=== PATIENT | male | born 1970 | race Caucasian/White ===

== ENCOUNTER 2024-08-29 11:42 | Inpatient (IN) | payer OTHER ==
[2024-08-29 12:25] LABS: ABG Base Excess 18.9 mmol/L; ABG Oxygen Saturation >100.0 % (94-97); ABG PCO2 70 mmHg (35-45); ABG PH 7.44 (7.35-7.45); ABG PO2 256 mmHg (83-108); ABG TCO2 49 mmol/L (19-24); Allen Test Performed? Yes
[2024-08-29 12:29] LABS: ABG HCO3 47 mmol/L (21-25)
[2024-08-29 12:32] LABS: Basophils % (A) 0 %; Eosinophils % (A) 0 %; HCT 40.2 % (39.0-53.0); HGB 13.2 gm/dL (13.0-17.5); Lymphocytes # (A) 0.6 k/uL (1.0-4.8); Lymphocytes % (A) 8 %; MCH 29.2 pg (25.0-35.0); MCV 88.5 fL (80.0-100.0); Mean Platelet Volume 7.2; Monocytes # (A) 0.2 k/uL (0-1.0); Monocytes % (A) 3 %; Neutrophils # (A) 7.4 k/uL (1.3-7.7); Neutrophils % (A) 89 %; Platelet Count 239 k/uL (150-450); RBC 4.54 m/uL (4.30-5.90); RDW 12.5 % (11.5-15.5); WBC 8.3 k/uL (3.8-10.6)
[2024-08-29] MEDS: SODIUM CHLORIDE 0.9% 1,000 ML IV STA (12:39)
[2024-08-29] MEDS: SODIUM CHLORIDE 0.9% 1,000 ML IV ONE (12:39)
[2024-08-29] MEDS: methylPREDNISolone SOD SUCCI 125 MG/2 ML VIAL IV STA (12:39)
[2024-08-29 12:43] LABS: ALT 21 U/L (4-49); AST 22 U/L (17-59); African American GFR (CKD) >90 (>60 ml/min/1.73 sqM); Albumin 3.9 g/dL (3.5-5.0); Alkaline Phosphatase 75 U/L (38-126); Blood Urea Nitrogen 19 mg/dL (9-20); Calcium 9.1 mg/dL (8.4-10.2); Chloride 87 mmol/L (98-107); Glucose 125 mg/dL (74-99); Magnesium 1.9 mg/dL (1.6-2.3); Non-African American GFR(CKD) >90 (>60 ml/min/1.73 sqM); Potassium 3.9 mmol/L (3.5-5.1); Sodium 139 mmol/L (137-145); Total Bilirubin 0.6 mg/dL (0.2-1.3); Total Protein 7.3 g/dL (6.3-8.2)
[2024-08-29] MEDS: IPRATROPIUM 0.5 MG/2.5 ML NEBU INHALATION STA (12:45)
[2024-08-29] MEDS: ALBUTEROL NEBULIZED 2.5 MG/3 ML INHALATION STA (12:45)
[2024-08-29 12:49] LABS: Anion Gap 8 mmol/L
[2024-08-29 12:52] LABS: NT-Pro-B-Type Natriuretic Pept 857 pg/mL
[2024-08-29 12:56] LABS: Partial Thromboplastin Time 21.2 sec (22.0-30.0); Prothrombin Time 10.7 sec (10.0-12.5)
[2024-08-29 13:04] LABS: Carbon Dioxide 44 mmol/L (22-30)
[2024-08-29 13:10] LABS: Influenza A Not Detected (Not Detectd); Influenza B Not Detected (Not Detectd); RSV Not Detected (Not Detectd)
--- NOTE | 2024-08-29 13:11 | XR ---
EXAMINATION TYPE: XR chest 1V portable DATE OF EXAM: 08/29/2024 12:49 PM COMPARISON: None CLINICAL INDICATION: Male, 53 years old with history of difficulty breathing; [facility] TECHNIQUE: XR chest 1V portable Frontal view of the chest. FINDINGS: Lungs/Pleura: There is no evidence of pleural effusion, focal consolidation, or pneumothorax. Pulmonary vascularity: Unremarkable. Heart/mediastinum: Cardiomediastinal silhouette is unremarkable. A loop recorder projects over the le ft thorax over the heart. Musculoskeletal: Multiple right-sided rib fractures identified somewhat calculus formation. Other findings: None Lines/Tubes: Endotracheal tube with distal tip 2.7cm above the juan c. Nasogastric tube with its distal tip and side-port projecting under the diaphragm. IMPRESSION: 1. Similar multifocal airspace opacities. Correlate for pneumonia. 2. Stable support lines and tubes. 3. Multiple right-sided rib fractures some with calcification. [facility], , 08/29/2024 1:09 PM
--- NOTE | 2024-08-29 13:42 | ED ---
General Adult HPI - General Chief complaint: Shortness of Breath Stated complaint: Resp distress Time Seen by Provider: 08/29/24 12:00 Source: patient, EMS, RN notes reviewed, old records reviewed Mode of arrival: EMS Limitations: language barrier, altered mental status - History of Present Illness Initial comments: This is a 53-year-old male who presents to the emergency department from [facility]. There ER physician called me prior to the patient's arrival and stated that the patient was a bad COPD year with a pCO2 of 137 they tried BiPAP but the patient failed and it so they intubated the patient. Patient was also diagnosed with pneumonia and started on antibiotics. Patient arrived without any lab work so lab work was repeated - Related Data Allergies Allergy/AdvReac Type Severity Reaction Status Date / Time Penicillins Allergy Rash/Hives Verified 08/29/24 12:03 Review of Systems ROS Statement: Those systems with pertinent positive or pertinent negative responses have been documented in the HPI. ROS Other: All systems not noted in ROS Statement are negative. Past Medical History Past Medical History: COPD History of Any Multi-Drug Resistant Organisms: Unobtainable Past Surgical History: No Surgical Hx Reported Past Psychological History: Unable to Obtain Past Alcohol Use History: Unable to Obtain Past Drug Use History: Unable to Obtain General Exam - General Exam Comments Initial Comments: GENERAL: Patient is well-developed and well-nourished. Patient is nontoxic and well- hydrated and is in no acute distress. Patient is being bagged and there does not appear to be any distress at this time ENT: Neck is soft and supple. No significant lymphadenopathy is noted. Oropharynx is clear. Moist mucous membranes. Neck has full range of motion without eliciting any pain. EYES: The sclera were anicteric and conjunctiva were pink and moist. Extraocular move ments were intact and pupils were equal round and reactive to light. Eyelids were unremarkable. PULMONARY: Patient has good breath sounds bilaterally but patient is intubated CARDIOVASCULAR: There is a regular rate and rhythm without any murmurs gallops or rubs. ABDOMEN: Soft and nontender with normal bowel sounds. SKIN: Skin is clear with no lesions or rashes and otherwise unremarkable. NEUROLOGIC: Patient is intubated on dipper Van. MUSCULOSKELETAL: Normal extremities with adequate strength and full range of motion. No lower extremity swelling or edema. No calf tenderness. PSYCHIATRIC: Unable to assess at this time Limitations: language barrier, altered mental status Course Vital Signs 08/29/24 08/29/24 08/29/24 11:45 11:52 12:00 Temperature Pulse Rate 59 L Respiratory 14 14 Rate Blood Pressure 104/63 O2 Sat by Pulse 100 Oximetry Fraction of 100 Inspired Oxygen (FIO2) 08/29/24 08/29/24 08/29/24 12:30 12:31 12:48 Temperature Pulse Rate 61 60 Respiratory 14 Rate Blood Pressure 111/66 O2 Sat by Pulse 100 Oximetry Fraction of 60 100 Inspired Oxygen (FIO2) 08/29/24 08/29/24 13:00 13:28 Temperature 98.9 F Pulse Rate 75 67 Respiratory 14 14 Rate Blood Pressure 90/77 108/62 O2 Sat by Pulse 97 98 Oximetry Fraction of Inspired Oxygen (FIO2) Medical Decision Making - Medical Decision Making Patient's EKG shows sinus rhythm at 62 bpm [place] notes 159 QRS 107 QT interval 393 QTc is 397. Patient's EKG shows minimal ST segment elevation in 2 and aVF Was pt. sent in by a medical professional or institution ([facility], [employer], urgent care, hospital, or fci...) When possible be specific @ -No Did you speak to anyone other than the patient for history (EMS, parent, family, police, friend...)? What history was obtained from this source @ -No Did you review nursing and triage notes (agree or disagree)? Why? @ -I reviewed and agree with nursing and triage notes Were old charts reviewed (outside hosp., previous admission, EMS record, old EKG, old radiological studies, urgent care reports/EKG's, fci records)? Report findings @ -No old charts were reviewed Differential Diagnosis? @ -Differential Dyspnea: Coronary syndrome, arrhythmia, tamponade, asthma, COPD, pulmonary embolism, pneumonia, pneumothorax, pulmonary effusion, anaphylaxis, diabetic ketoacidosis, flailed chest, pulmonary contusion, diaphragmatic rupture, anemia, neuromuscular, this is not meant to be an all-inclusive list. EKG interpreted by me (3pts min.). @ -As above X-rays interpreted by me (1pt min.). @ -Chest x-ray shows diffuse pneumonia CT interpreted by me (1pt min.). @ -None done U/S interpreted by me (1pt. min.). @ -None done What testing was considered but not performed or refused? (CT, X-rays, U/S, labs)? Why? @ -None What meds were considered but not given or refused? Why? @ -None Did you discuss the management of the patient with other professionals (professionals i.e. , PA, BUYER PLANNER, lab, RT, psych nurse, psychiatric social worker, customer business manager, teacher, investigation officer, special education case manager)? Give summary @ -I spoke with Dr. Fernandez he agreed to admit the patient admit the patient wrote admitting orders. I spoke with Dr. Yoder he agreed to take the patient in ICU. Was smoking cessation discussed for >3mins.? @ -No Was critical care preformed (if so, how long)? @ -No Were there social determinants of health that impacted care today? How? (Homelessness, low income, unemployed, alcoholism, drug addiction, transportation, low edu. Level, literacy, decrease access to med. care, skilled nursing, rehab)? @ -No Was there de-escalation of care discussed even if they declined (Discuss DNR or withdrawal of care, Hospice)? DNR status @ -No What co-morbidities impacted this encounter? (DM, HTN, Smoking, COPD, CAD, Cancer, CVA, ARF, Chemo, Hep., AIDS, mental health diagnosis, sleep apnea, morbid obesity)? @ -None Was patient admitted / discharged? Hospital course, mention meds given and route, prescriptions, significant lab abnormalities, going to OR and other pertinent info. @ -Patient was intubated prior to arrival patient was placed on the vent here. Patient had an ABG and lab work done here all within normal range. Patient's chest x-ray showed diffuse pneumonia Undiagnosed new problem with uncertain prognosis? @ -No Drug Therapy requiring intensive monitoring for toxicity (Heparin, Nitro, Insulin, Cardizem)? @ -No Were any procedures done? @ -No Diagnosis/symptom? @ -Pneumonia Acute, or Chronic, or Acute on Chronic? @ -Acute Uncomplicated (without systemic symptoms) or Complicated (systemic symptoms)? @ -Complicated Side effects of treatment? @ -No Exacerbation, Progression, or Severe Exacerbation? @ -No Poses a threat to life or bodily function? How? (Chest pain, [place], [place], pneumonia, PE, COPD, DKA, ARF, appy, cholecystitis, CVA, Diverticulitis, Homicidal, Suicidal, threat to staff... and all critical care pts) @ -Yes this can lead to hypoxia and endorgan dysfunction - Lab Data Result diagrams: 08/29/24 11:53 08/29/24 11:53 Lab Results 08/29/24 08/29/24 08/29/24 Range/Units 11:53 11:53 11:53 WBC 8.3 (3.8-10.6) k/uL RBC 4.54 (4.30-5.90) m/uL Hgb 13.2 (13.0-17.5) gm/dL Hct 40.2 (39.0-53.0) % MCV 88.5 (80.0-100.0) fL MCH 29.2 (25.0-35.0) pg MCHC 33.0 (31.0-37.0) g/dL RDW 12.5 (11.5-15.5) % Plt Count 239 (150-450) k/uL MPV 7.2 Neutrophils % 89 % Lymphocytes % 8 % Monocytes % 3 % Eosinophils % 0 % Basophils % 0 % Neutrophils # 7.4 (1.3-7.7) k/uL Lymphocytes # 0.6 L (1.0-4.8) k/uL Monocytes # 0.2 (0-1.0) k/uL Eosinophils # 0.0 (0-0.7) k/uL Basophils # 0.0 (0-0.2) k/uL PT 10.7 (10.0-12.5) sec INR 1.0 (<1.2) APTT 21.2 L (22.0-30.0) sec D-Dimer 0.56 (<0.60) mg/L FEU Sample Site ABG pH (7.35-7.45) ABG pCO2 (35-45) mmHg ABG pO2 (83-108) mmHg ABG HCO3 (21-25) mmol/L ABG Total CO2 (19-24) mmol/L ABG O2 Saturation (94-97) % ABG Base Excess mmol/L Iain Test FiO2 % Sodium 139 (137-145) mmol/L Potassium 3.9 (3.5-5.1) mmol/L Chloride 87 L (98-107) mmol/L Carbon Dioxide 44 H* (22-30) mmol/L Anion Gap 8 mmol/L BUN 19 (9-20) mg/dL Creatinine 0.79 (0.66-1.25) mg/dL Est GFR (CKD-EPI)AfAm >90 (>60 ml/min/1.73 sqM) Est GFR (CKD-EPI)NonAf >90 (>60 ml/min/1.73 sqM) Glucose 125 H (74-99) mg/dL Plasma Lactic Acid Rolf (0.7-2.0) mmol/L Calcium 9.1 (8.4-10.2) mg/dL Magnesium 1.9 (1.6-2.3) mg/dL Total Bilirubin 0.6 (0.2-1.3) mg/dL AST 22 (17-59) U/L ALT 21 (4-49) U/L Alkaline Phosphatase 75 (38-126) U/L Troponin I (0.000-0.034) ng/mL NT-Pro-B Natriuret Pep 857 pg/mL Total Protein 7.3 (6.3-8.2) g/dL Albumin 3.9 (3.5-5.0) g/dL Influenza Type A (PCR) (Not Detectd) Influenza Type B (PCR) (Not Detectd) RSV (PCR) (Not Detectd) SARS-CoV-2 (PCR) (Not Detectd) 08/29/24 08/29/24 08/29/24 Range/Units 11:53 11:53 11:54 WBC (3.8-10.6) k/uL RBC (4.30-5.90) m/uL Hgb (13.0-17.5) gm/dL Hct (39.0-53.0) % MCV (80.0-100.0) fL MCH (25.0-35.0) pg MCHC (31.0-37.0) g/dL RDW (11.5-15.5) % Plt Count (150-450) k/uL MPV Neutrophils % % Lymphocytes % % Monocytes % % Eosinophils % % Basophils % % Neutrophils # (1.3-7.7) k/uL Lymphocytes # (1.0-4.8) k/uL Monocytes # (0-1.0) k/uL Eosinophils # (0-0.7) k/uL Basophils # (0-0.2) k/uL PT (10.0-12.5) sec INR (<1.2) APTT (22.0-30.0) sec D-Dimer (<0.60) mg/L FEU Sample Site ABG pH (7.35-7.45) ABG pCO2 (35-45) mmHg ABG pO2 (83-108) mmHg ABG HCO3 (21-25) mmol/L ABG Total CO2 (19-24) mmol/L ABG O2 Saturation (94-97) % ABG Base Excess mmol/L Iain Test FiO2 % Sodium (137-145) mmol/L Potassium (3.5-5.1) mmol/L Chloride (98-107) mmol/L Carbon Dioxide (22-30) mmol/L Anion Gap mmol/L BUN (9-20) mg/dL Creatinine (0.66-1.25) mg/dL Est GFR (CKD-EPI)AfAm (>60 ml/min/1.73 sqM) Est GFR (CKD-EPI)NonAf (>60 ml/min/1.73 sqM) Glucose (74-99) mg/dL Plasma Lactic Acid Rolf 2.2 H* (0.7-2.0) mmol/L Calcium (8.4-10.2) mg/dL Magnesium (1.6-2.3) mg/dL Total Bilirubin (0.2-1.3) mg/dL AST (17-59) U/L ALT (4-49) U/L Alkaline Phosphatase (38-126) U/L Troponin I <0.012 (0.000-0.034) ng/mL NT-Pro-B Natriuret Pep pg/mL Total Protein (6.3-8.2) g/dL Albumin (3.5-5.0) g/dL Influenza Type A (PCR) Not Detected (Not Detectd) Influenza Type B (PCR) Not Detected (Not Detectd) RSV (PCR) Not Detected (Not Detectd) SARS-CoV-2 (PCR) Not Detected (Not Detectd) 08/29/24 Range/Units 12:13 WBC (3.8-10.6) k/uL RBC (4.30-5.90) m/uL Hgb (13.0-17.5) gm/dL Hct (39.0-53.0) % MCV (80.0-100.0) fL MCH (25.0-35.0) pg MCHC (31.0-37.0) g/dL RDW (11.5-15.5) % Plt Count (150-450) k/uL MPV Neutrophils % % Lymphocytes % % Monocytes % % Eosinophils % % Basophils % % Neutrophils # (1.3-7.7) k/uL Lymphocytes # (1.0-4.8) k/uL Monocytes # (0-1.0) k/uL Eosinophils # (0-0.7) k/uL Basophils # (0-0.2) k/uL PT (10.0-12.5) sec INR (<1.2) APTT (22.0-30.0) sec D-Dimer (<0.60) mg/L FEU Sample Site rrad ABG pH 7.44 (7.35-7.45) ABG pCO2 70 H (35-45) mmHg ABG pO2 256 H (83-108) mmHg ABG HCO3 47 H* (21-25) mmol/L ABG Total CO2 49 H (19-24) mmol/L ABG O2 Saturation >100.0 H (94-97) % ABG Base Excess 18.9 mmol/L Iain Test Yes FiO2 100 % Sodium (137-145) mmol/L Potassium (3.5-5.1) mmol/L Chloride (98-107) mmol/L Carbon Dioxide (22-30) mmol/L Anion Gap mmol/L BUN (9-20) mg/dL Creatinine (0.66-1.25) mg/dL Est GFR (CKD-EPI)AfAm (>60 ml/min/1.73 sqM) Est GFR (CKD-EPI)NonAf (>60 ml/min/1.73 sqM) Glucose (74-99) mg/dL Plasma Lactic Acid Rolf (0.7-2.0) mmol/L Calcium (8.4-10.2) mg/dL Magnesium (1.6-2.3) mg/dL Total Bilirubin (0.2-1.3) mg/dL AST (17-59) U/L ALT (4-49) U/L Alkaline Phosphatase (38-126) U/L Troponin I (0.000-0.034) ng/mL NT-Pro-B Natriuret Pep pg/mL Total Protein (6.3-8.2) g/dL Albumin (3.5-5.0) g/dL Influenza Type A (PCR) (Not Detectd) Influenza Type B (PCR) (Not Detectd) RSV (PCR) (Not Detectd) SARS-CoV-2 (PCR) (Not Detectd) Critical Care Time Critical Care Time: Yes Total Critical Care Time: 35 Disposition Clinical Impression: Pneumonia, COPD exacerbation, Respiratory failure Disposition: ADMITTED IP TO THIS HOSP Referrals: Nonstaff,Physician [Primary Care Provider] - 1-2 days Time of Disposition: 13:49
[2024-08-29] MEDS ORDERED: IPRATROPIUM-ALBUTEROL 3 ML NEB INHALATION PRN (13:49)
[2024-08-29] MEDS ORDERED: NALOXONE 0.4 MG/ML 1 ML VIAL IV PRN (13:49)
--- NOTE | 2024-08-29 14:18 | P.CNPUL ---
History of Present Illness Consult date: 08/29/24 Requesting physician: James Fernandez Reason for consult: dyspnea, COPD, hypoxemia Chief complaint: Respiratory failure. History of present illness: Pulmonary consult dated August 29, 2024. 53-year-old male who was transferred down, by EMS, from an outside hospital, with respiratory failure. The patient apparently has a history of severe COPD, and the patient was intubated, at the outside hospital, after he failed BiPAP. Apparently his PaCO2 on blood gas was 137. The patient is seen today in the emergency department, trauma room 2. His vent settings include volume assist- control, rate 14, tidal volume 450, FiO2 50%, and PEEP of 5. The patient is getting propofol at 25 mcg/kg/min. He apparently has a history of COPD, and sleep apnea, and apparently is noncompliant with medications. No other history is available other than the fact that he has COPD and sleep apnea. Home medic ations apparently include Trelegy, saline nasal rinse, vitamins, metoprolol, updrafts, with ipratropium bromide and albuterol, Motrin, Flonase nasal spray, Flexeril, Lipitor, aspirin, amlodipine, albuterol inhaler, and Tylenol. Based on these medications it appears in addition to COPD, the patient has a history of gastroesophageal reflux disease, hyperlipidemia, and hypertension. Current laboratory data includes a white count 8.3, hemoglobin 13.2, hematocrit 40.2, and a platelet count 239,000. Blood gases show pO2 of 256, pCO2 of 70, and a pH of 7.44. Bicarbonate concentration on the blood gas was 47, on the electrolyte profile was 44. Sodium 139, potassium 3.9, chloride 87, CO2 44, BUN 19, and creatinine 0.79. Lactic acid was 2.2. Glucose 125. The rest of the CMP looks relatively normal. Viral screen was negative. Chest x-ray shows bilateral airspace opacities, which could be consistent with pneumonia. Review of Systems REVIEW OF SYSTEMS: CONSTITUTIONAL: [Negative.] NEUROLOGIC: [ Negative.] HEENT: [ Negative.] CARDIAC: [Negative.] PULMONARY: Shortness of breath with respiratory failure. GI: [Negative.] : [Negative.] RHEUMATOLOGIC: [ Negative.] IMMUNOLOGIC: [ Negative.] ENDOCRINE: [Negative. ] DERMATOLOGIC: [Negative.] Past Medical History Past Medical History: COPD History of Any Multi-Drug Resistant Organisms: Unobtainable Past Surgical History: No Surgical Hx Reported Past Psychological History: Unable to Obtain Past Alcohol Use History: Unable to Obtain Past Drug Use History: Unable to Obtain Medications and Allergies Home Medications Medication Instructions Recorded Confirmed Type Acetaminophen Tab [Tylenol] 650 mg PO Q6H PRN 08/29/24 08/29/24 History Albuterol Inhaler [Ventolin Hfa 2 puff INHALATION RT-Q4H PRN 08/29/24 08/29/24 History Inhaler] Aspirin EC [Ecotrin] 325 mg PO W/BRKFST 08/29/24 08/29/24 History Atorvastatin [Lipitor] 40 mg PO HS 08/29/24 08/29/24 History Cyclobenzaprine [Flexeril] 5 mg PO TID PRN 08/29/24 08/29/24 History Famotidine [Pepcid] 20 mg PO BID 08/29/24 08/29/24 History Fluticasone Nasal [place] [Flonase 2 spr EA NOSTRIL DAILY 08/29/24 08/29/24 Histor y Nasal [place]] Fluticasone/Umeclidin/Vilanter 1 puff INHALATION RT-DAILY 08/29/24 08/29/24 [place] [Trelegy Ellipta 100-62.5-25] Ibuprofen [Motrin] 800 mg PO Q12H PRN 08/29/24 08/29/24 History Ipratropium-Albuterol Nebulize 3 ml INHALATION RT-BID 08/29/24 08/29/24 History [Duoneb 0.5 mg-3 mg/3 ml Soln] Metoprolol Tartrate [Lopressor] 50 mg PO BID 08/29/24 08/29/24 History Multivitamins, Thera [Multivitamin 1 tab PO W/BRKFST 08/29/24 08/29/24 History (formulary)] Sodium Chloride 0.65% Nasal [Deep 2 spr NASAL Q1H PRN 08/29/24 08/29/24 History Sea (Saline)] amLODIPine [Norvasc] 10 mg PO DAILY 08/29/24 08/29/24 History Allergies Allergy/AdvReac Type Severity Reaction Status Date / Time Penicillins Allergy Rash/Hives Verified 08/29/24 14:01 Physical Exam Osteopathic Statement: *. No significant issues noted on an osteopathic structural exam other than those noted in the History and Physical/Consult. Vitals: Vital Signs Temp Pulse Resp BP Pulse Ox FiO2 08/29/24 14:00 69 14 119/65 97 08/29/24 13:28 67 14 108/62 98 08/29/24 13:00 98.9 F 75 14 90/77 97 08/29/24 12:48 60 08/29/24 12:31 100 08/29/24 12:30 61 14 111/66 100 60 08/29/24 12:00 14 08/29/24 11:52 59 L 14 104/63 100 08/29/24 11:45 100 Intake and Output 08/28/24 08/29/24 08/29/24 22:59 06:59 14:59 Intake Total 6.171 Balance 6.171 Intake: Intake, IV Titration 6.171 Amount propofoL 1,000 mg In 6.171 Empty Bag 1 bag @ 15 MCG/ KG/MIN 15.867 mls/hr IV . Q6H19M [facility] Rx#:[id number] Other: Weight 176.3 kg No acute distress, sedated with propofol, with an orally placed endotracheal tube. HEENT examination is grossly unremarkable. Neck supple. Full range of motion. No adenopathy thyromegaly or neck vein distention. Cardiovascular examination reveals regular rhythm rate. S1-S2 normal. No S3 or S4. No discernible murmur noted. Sounds are distant. Lungs reveal scattered rhonchi. Minimal expiratory wheezes. No crackles. Breath sounds equal. Abdomen soft bowel sounds. No masses or tenderness. Extremities are intact. No cyanosis clubbing or edema. Skin is without rash or lesion. Neurologic examination could not be evaluated at this time. Results - Laboratory Findings CBC and BMP: 08/29/24 11:53 08/29/24 11:53 ABG ABG pH 7.44 (7.35-7.45) 08/29/24 12:13 ABG pCO2 70 mmHg (35-45) H 08/29/24 12:13 ABG pO2 256 mmHg (83-108) H 08/29/24 12:13 ABG O2 Saturation >100.0 % (94-97) H 08/29/24 12:13 PT/INR, D-dimer PT 10.7 sec (10.0-12.5) 08/29/24 11:53 INR 1.0 (<1.2) 08/29/24 11:53 D-Dimer 0.56 mg/L FEU (<0.60) 08/29/24 11:53 Abnormal lab findings: Abnormal Labs 08/29/24 08/29/24 08/29/24 11:53 11:53 11:53 Lymphocytes # 0.6 L APTT 21.2 L ABG pCO2 ABG pO2 ABG HCO3 ABG Total CO2 ABG O2 Saturation Chloride 87 L Carbon Dioxide 44 H* Glucose 125 H Plasma Lactic Acid Rolf 08/29/24 08/29/24 11:53 12:13 Lymphocytes # APTT ABG pCO2 70 H ABG pO2 256 H ABG HCO3 47 H* ABG Total CO2 49 H ABG O2 Saturation >100.0 H Chloride Carbon Dioxide Glucose Plasma Lactic Acid Rolf 2.2 H* - Diagnostic Findings Chest x-ray: image reviewed Assessment and Plan Assessment: Acute hypoxemic respiratory failure, secondary to COPD exacerbation, potentially complicated by bilateral pneumonia. History of COPD, from heavy tobacco use. History of hypertension. History of hyperlipidemia. History of gastroesophageal reflux disease. History of obstructive sleep apnea syndrome. Plan: Plan dated August 29, 2024. The patient is seen in the emergency department, trauma room 2. The patient is currently on volume assist-control, rate 14, tidal volume 450, FiO2 50%, PEEP of 5. The patient is also receiving propofol at 25 mcg/kg/min. Labs, x-rays, medications are reviewed. The patient will be placed on antibiotics, and breathing treatments, as well as corticosteroids. The patient will need a central line and arterial line. Additional recommendations and suggestions are forthcoming. Prognosis is guarded. 75 minutes was spent with this patient, including reviewing of the records from the outside hospital, examining the patient, reviewing pertinent laboratory data, x-rays, medications, as well as discussing the diagnosis, treatment, and prognosis, with the nursing staff. Additional recommendations and suggestions are forthcoming. Dictation was produced using [employer] software. Please excuse any grammatical, word or spelling errors. Time with Patient: Greater than 30
[2024-08-29] MEDS ORDERED: Potassium Replacement Protocol 1 EACH MISC MISCELLANE PRN (15:05)
[2024-08-29] MEDS ORDERED: Magnesium Replacement Protocol 1 EACH MISC MISCELLANE PRN (15:05)
[2024-08-29] MEDS: IPRATROPIUM-ALBUTEROL 3 ML NEB INHALATION SCH (15:45)
[2024-08-29 16:04] LABS: Glucose,Whole Blood 137 mg/dL (70-110)
[2024-08-29 16:10] LABS: ABG Base Excess 17.7 mmol/L; ABG Oxygen Saturation 93.6 % (94-97); ABG PH 7.41 (7.35-7.45); ABG PO2 62 mmHg (83-108); ABG TCO2 48 mmol/L (19-24)
[2024-08-29 16:17] LABS: ABG HCO3 46 mmol/L (21-25); ABG PCO2 73 mmHg (35-45); Allen Test Performed? no
[2024-08-29] MEDS: CISATRACURIUM 2 MG/ML 5 ML VIAL IV ONE (16:19)
--- NOTE | 2024-08-29 16:32 | XR ---
EXAMINATION TYPE: XR chest 1V DATE OF EXAM: 08/29/2024 4:11 PM COMPARISON: Chest radiographs CLINICAL INDICATION: Male, 53 years old with history of line placement; [facility] TECHNIQUE: XR chest 1V Frontal view of the chest. FINDINGS: Lungs/Pleura: Similar multifocal airspace opacities. No evidence of pneumothorax or pleural effusion. Pulmonary vascularity: Unremarkable. Heart/mediastinum: Cardiomediastinal silhouette is unremarkable. A loop recorder projects over the le ft thorax over the heart. Musculoskeletal: Multiple right-sided rib fractures identified somewhat calculus formation. Other findings: None Lines/Tubes: Endotracheal tube with distal tip 2.7cm above the juan c. Nasogastric tube with its distal tip and side-port projecting under the diaphragm. Left central venous catheter with distal tip at the cavoatrial junction. IMPRESSION: 1. Similar multifocal airspace opacities. Correlate for pneumonia. 2. Appropriate placement of left central venous catheter and an support tubes. 3. Multiple right-sided rib fractures some with calcification. [facility], , 08/29/2024 4:30 PM
[2024-08-29 16:42] LABS: Appearance,Urine Cloudy (Clear); Bacteria,Urine Rare /hpf; Bilirubin,Urine Negative (Negative); Blood,Urine Large (Negative); Color,Urine Yellow; Glucose,Urine (UA) Negative (Negative); Hyaline Casts,Urine 9 /lpf (0-2); Ketones,Urine 1+ (Negative); Leukocyte Esterase,Urine Negative (Negative); Mucus,Urine Few /hpf; Nitrite,Urine Negative (Negative); Protein,Urine Trace (Negative); RBC,Urine >182 /hpf (0-5); Specific Gravity,Urine 1.027 (1.001-1.035); Squamous Epithelial Cell,Urine <1 /hpf (0-4); Urobilinogen,Urine <2.0 mg/dL (<2.0); WBC,Urine 9 /hpf (0-5)
[2024-08-29] MEDS: methylPREDNISolone SOD SUCCI 125 MG/2 ML VIAL IV SCH (17:04)
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
[2024-08-29] MEDS: CHLORHEXIDINE GLUCONATE 15 ML CUP MUCOUS MEM SCH (19:59)
[2024-08-29] MEDS: BUDESONIDE 1 MG/2 ML NEBU INHALATION SCH (21:09)
[2024-08-29] MEDS: FORMOTEROL FUMARATE 20 MCG/2 ML NEBU INHALATION SCH (21:09)
--- NOTE | 2024-08-29 23:14 | PCN ---
PROCEDURE NOTE PROCEDURE: Right radial arterial line. PREOPERATIVE DIAGNOSIS: Frequent blood draws and blood gas monitoring. POSTOPERATIVE DIAGNOSIS: Frequent blood draws and blood gas monitoring. The patient's procedure was done in room 265. LABORATORY EQUIPMENT CLEANER: Dr. Yoder. FIRST CAMERA REPAIRER: Dr. Lucrecia Bryson. ARTERIAL LINE PLACEMENT: Indications: Hemodynamic monitoring. A time-out was completed verifying correct patient, procedure, site, positioning, and implant(s) or special equipment if applicable. Iain's test was performed to ensure adequate perfusion. The patient's right wrist or right groin was prepped and draped in sterile fashion. 1% Lidocaine was used to anesthetize the area. An 18G Arrow arterial line was introduced into the right radial artery. The catheter was threaded over the guide wire and the needle was removed with appropriate pulsatile blood return. Blood loss was minimal. The catheter was then sutured in place to the skin and a sterile dressing applied. Perfusion to the extremity distal to the point of catheter insertion was checked and found to be adequate. The patient tolerated the procedure well and there were no complications. There was good blood return and waveform. The catheter was sutured in place. Sterile dressing applied by the nurse. There was no immediate complication. MMODL / IJN: [id number] /
--- NOTE | 2024-08-29 23:14 | PCN ---
PROCEDURE NOTE PROCEDURE: Left internal jugular triple-lumen catheter. PREOPERATIVE DIAGNOSIS: Administration of fluids and pressors. POSTOPERATIVE DIAGNOSIS: Administration of fluids and pressors. The patient's procedure was done in room 265. DEVELOPMENT ENGINEER: Dr. Yoder. FIRST CELL SUPPORT OPERATOR: Dr. Lucrecia Bryson. We used the left internal jugular site. TRIPLE LUMEN CATHETER PLACEMENT: Indication: Hemodynamic monitoring/Intravenous access. A time-out was completed verifying correct patient, procedure, site, positioning, and implant(s) or special equipment if applicable. The patient was placed in a dependent position appropriate for triple lumen catheter placement based on the vein to be cannulated. The patient's left shoulder or left neck or left groin was prepped and draped in sterile fashion. 1% Lidocaine was used to anesthetize the surrounding skin area. A triple lumen 9F Cordis catheter was introduced into the left internal jugular vein using Seldinger technique. The catheter was threaded smoothly over the guide wire and appropriate blood return was obtained. Each lumen of the catheter was evacuated of air and flushed with sterile saline. The catheter was then sutured in place to the skin and a sterile dressing applied. Perfusion to the extremity distal to the point of catheter insertion was checked and found to be adequate. There was good blood return from all 3 ports. The catheter was sutured in place. Sterile dressing was applied by the nurse. The tip of catheter was seen in the junction of superior vena cava, right atrium. Chest x-ray was ordered. There was no immediate complication. The patient tolerated procedure well. MMODL / IJN: [id number] /
[2024-08-29 23:25] LABS: Glucose,Whole Blood 172 mg/dL (70-110)
[2024-08-30] MEDS: LORazepam 2 MG/ML INJ IV STA (01:31)
[2024-08-30 05:01] LABS: Glucose,Whole Blood 158 mg/dL (70-110)
[2024-08-30 05:12] LABS: Basophils % (A) 0 %; Eosinophils % (A) 0 %; HCT 34.1 % (39.0-53.0); HGB 10.9 gm/dL (13.0-17.5); Lymphocytes # (A) 0.7 k/uL (1.0-4.8); Lymphocytes % (A) 9 %; MCHC 31.8 g/dL (31.0-37.0); Mean Platelet Volume 8.5; Monocytes # (A) 0.4 k/uL (0-1.0); Monocytes % (A) 5 %; Neutrophils # (A) 6.6 k/uL (1.3-7.7); Neutrophils % (A) 85 %; Platelet Count 242 k/uL (150-450); RBC 3.88 m/uL (4.30-5.90); RDW 13.1 % (11.5-15.5); WBC 7.8 k/uL (3.8-10.6)
[2024-08-30 05:32] LABS: ABG Base Excess 18.1 mmol/L; ABG Oxygen Saturation 99.5 % (94-97); ABG PH 7.42 (7.35-7.45); ABG PO2 133 mmHg (83-108); ABG TCO2 48 mmol/L (19-24)
[2024-08-30 06:07] LABS: African American GFR (CKD) >90 (>60 ml/min/1.73 sqM); Blood Urea Nitrogen 19 mg/dL (9-20); Chloride 89 mmol/L (98-107); Glucose 163 mg/dL (74-99); Non-African American GFR(CKD) >90 (>60 ml/min/1.73 sqM); Potassium 3.3 mmol/L (3.5-5.1); Sodium 138 mmol/L (137-145)
[2024-08-30 06:07] LABS: ABG HCO3 46 mmol/L (21-25); ABG PCO2 71 mmHg (35-45)
[2024-08-30 06:08] LABS: Allen Test Performed? No
[2024-08-30 06:13] LABS: Anion Gap 5 mmol/L
[2024-08-30 06:21] LABS: Carbon Dioxide 44 mmol/L (22-30)
[2024-08-30] MEDS ORDERED: DEXTROSE 50% SYRINGE 50 ML IVP PRN ×2 (07:31)
--- NOTE | 2024-08-30 07:51 | XR ---
EXAMINATION TYPE: XR chest 1V DATE OF EXAM: 08/30/2024 5:27 AM COMPARISON: Chest radiographs from 08/29/2024 TECHNIQUE: XR chest 1V Frontal view of the chest. CLINICAL INDICATION:Male, 53 years old with history of tube placement; FINDINGS: Lungs/Pleura: No pneumothorax or pleural effusion. Similar diffuse multifocal patchy airspace opaciti es. Pulmonary vascularity: Unremarkable. Heart/mediastinum: Cardiomediastinal silhouette is unremarkable. Musculoskeletal: Multiple right-sided rib fractures redemonstrated. Other findings: Similar calcifications and/or suture material within the right upper quadrant. Lines/Tubes: Endotracheal tube with distal tip 4.0 cm above the juan c Nasogastric tube with its distal tip and side-port projecting under the diaphragm and projecting over the gastric lumen. Left internal jugular central venous catheter with distal tip at the cavoatrial junction. Loop recorder overlies the left chest. IMPRESSION: 1. Similar multifocal airspace opacities concerning for pneumonia. 2. Stable support lines and tubes. 3. Multiple right-sided rib fractures redemonstrated. [facility], , 08/30/2024 7:48 AM
[2024-08-30] MEDS: ENOXAPARIN 40 MG/0.4 ML SYRINGE SQ SCH (08:32)
[2024-08-30] MEDS: POTASSIUM BICARBONATE/CIT AC 20 MEQ TABLET.EFF NG-TUBE SCH (08:32)
[2024-08-30] MEDS: PANTOPRAZOLE 40 MG/10 ML VIAL IVP SCH (08:33)
[2024-08-30] MEDS: ACETAMINOPHEN TAB 325 MG TAB PO PRN (09:38)
[2024-08-30] MEDS ORDERED: RX INFO: IV CONTRAST WAS GIVEN 1 EACH MISC MISCELLANE PRN ×2 (11:13→12:48)
[2024-08-30 12:12] LABS: Glucose,Whole Blood 184 mg/dL (70-110)
[2024-08-30] MEDS: INSULIN ASPART (NovoLOG) 100 UNIT/ML VIAL SQ SCH (12:25)
--- NOTE | 2024-08-30 13:12 | P.PN ---
Subjective Progress Note Date: 08/30/24 53-year-old male who was transferred down, by EMS, from an outside hospital, with respiratory failure. The patient apparently has a history of severe COPD, and the patient was intubated, at the outside hospital, after he failed BiPAP. Apparently his PaCO2 on blood gas was 137. The patient is seen today in the emergency department, trauma room 2. His vent settings include volume assist- control, rate 14, tidal volume 450, FiO2 50%, and PEEP of 5. The patient is getting propofol at 25 mcg/kg/min. He apparently has a history of COPD, and sleep apnea, and apparently is noncompliant with medications. No other history is available other than the fact that he has COPD and sleep apnea. Home medica tions apparently include Trelegy, saline nasal rinse, vitamins, metoprolol, updrafts, with ipratropium bromide and albuterol, Motrin, Flonase nasal spray, Flexeril, Lipitor, aspirin, amlodipine, albuterol inhaler, and Tylenol. Based on these medications it appears in addition to COPD, the patient has a history of gastroesophageal reflux disease, hyperlipidemia, and hypertension. Current laboratory data includes a white count 8.3, hemoglobin 13.2, hematocrit 40.2, and a platelet count 239,000. Blood gases show pO2 of 256, pCO2 of 70, and a pH of 7.44. Bicarbonate concentration on the blood gas was 47, on the electrolyte profile was 44. Sodium 139, potassium 3.9, chloride 87, CO2 44, BUN 19, and creatinine 0.79. Lactic acid was 2.2. Glucose 125. The rest of the CMP looks relatively normal. Viral screen was negative. Chest x-ray shows bilateral airspace opacities, which could be consistent with pneumonia. 08/30/2024, the patient is being seen for a follow-up. The patient has severe COPD and she was intubated in outside hospital after she failed BiPAP and the patient was transferred to us for further care. No further information is available regarding his baseline respiratory status. To my knowledge, the patient has been maintained on Trelegy Ellipta on an outpatient basis in addition to DuoNeb updrafts [id number]. At this point in time, the patient is intubated on the mechanical ventilator and the chest x-ray is showing diffuse bilateral pulmonary infiltrates. This is consistent with multifocal airspace disease. Underlying ILD cannot be completely ruled out. This morning, the patient is on propofol running at 50 mcg/kg/min. He is on assist-control mode of mechanical ventilation at rate of 20, tidal volume of 450, FiO2 40% with a PEEP of 5. Blood gas showed pH of 7.42 with a pCO2 of 71 and pO2 of 133. His peak airway pressure is at 31. Limited crackles and wheezing on today's examination. Cardiac rhythm is sinus. Remains on IV Rocephin and Zithromax. White cell count of 7.8 with him of 10.9 and a platelet count of 242. Sodium is at 138, potassium is at 3.3, bicarb is at 44, BUN is 19 with a creatinine of 0.74. The patient has a proBNP level of 857. Procalcitonin level is at 0.07. Lactic acid level is at 1.2. He is well sedated, calm and comfortable, maintained on wound bronchodilators, maintained on Solu-Medrol, maintained on L ovenox for DVT prophylaxis. Objective - Vital Signs Vital signs: Vital Signs Temp 98.6 F 08/30/24 04:00 Pulse 101 H 08/30/24 08:40 Resp 14 08/30/24 08:40 BP 121/65 08/30/24 07:00 Pulse Ox 99 08/30/24 07:00 FiO2 40 08/30/24 08:25 Intake & Output 08/29/24 08/30/24 08/30/24 18:59 06:59 18:59 Intake Total 100.000 530.000 Output Total 545 670 Balance -445.000 -140.000 Weight 75 kg 80.6 kg Intake: IV 230 0.9 Pressure bag 30 0.9 kvo 200 Intake, IV Titration 100.000 300.000 Amount propofoL 1,000 mg In 100.000 Empty Bag 1 bag @ 15 MCG/ KG/MIN 15.867 mls/hr IV . Q6H19M [facility] Rx#:[id number] propofoL 1,000 mg In 300.000 Empty Bag 1 bag @ 15 MCG/ KG/MIN 15.867 mls/hr IV . Q6H19M [facility] Rx#:[id number] Output: Gastric Drainage 300 Urine 545 370 Other: Voiding Method Indwelling Catheter Indwelling Catheter ABP, PAP, CO, CI - Last Documented Arterial Blood Pressure 121/59 - Exam The patient appeared well nourished and normally developed., Comfortable, intubated on mechanical ventilator. Orogastric endotracheal tube are both in place and the patient is well sedated with propofol. Head exam is unremarkable. No scleral icterus or corneal arcus noted. Neck is without jugular venous distension, thyromegaly, or carotid bruits. Carotid upstrokes are brisk bilaterally. Lungs are diminished bilaterally patient has bibasilar crackles along with sc attered expiratory wheezes throughout the lung dickens bilaterally. Cardiac exam reveals the PMI to be normally sized and situated. Rhythm is regular. First and second heart sounds normal. No murmurs, rubs or gallops. Abdominal exam reveals normal bowel sounds, no masses, no organomegaly and no aortic enlargement. Extremities are nonedematous and both femoral and pedal pulses are normal. Examination of the skin revealed no evidence of significant rashes, suspicious appearing nevi or other concerning lesions. Neurologically, the patient is sedated and, comfortable and he does not have any focal neurological deficit. Cranial nerves are essentially intact. - Labs CBC & Chem 7: 08/30/24 05:00 08/30/24 05:00 Labs: Abnormal Lab Results - Last 24 Hours (Table) 08/29/24 08/29/24 08/29/24 Range/Units 11:53 11:53 11:53 RBC (4.30-5.90) m/uL Hgb (13.0-17.5) gm/dL Hct (39.0-53.0) % Lymphocytes # 0.6 L (1.0-4.8) k/uL APTT 21.2 L (22.0-30.0) sec ABG pCO2 (35-45) mmHg ABG pO2 (83-108) mmHg ABG HCO3 (21-25) mmol/L ABG Total CO2 (19-24) mmol/L ABG O2 Saturation (94-97) % Potassium (3.5-5.1) mmol/L Chloride 87 L (98-107) mmol/L Carbon Dioxide 44 H* (22-30) mmol/L Glucose 125 H (74-99) mg/dL POC Glucose (mg/dL) (70-110) mg/dL Plasma Lactic Acid Rolf (0.7-2.0) mmol/L Urine Protein (Negative) Urine Ketones (Negative) Urine Blood (Negative) Urine RBC (0-5) /hpf Urine WBC (0-5) /hpf Urine Bacteria (None) /hpf Hyaline Casts (0-2) /lpf Urine Mucus (None) /hpf 08/29/24 08/29/24 08/29/24 Range/Units 11:53 12:13 16:02 RBC (4.30-5.90) m/uL Hgb (13.0-17.5) gm/dL Hct (39.0-53.0) % Lymphocytes # (1.0-4.8) k/uL APTT (22.0-30.0) sec ABG pCO2 70 H 73 H* (35-45) mmHg ABG pO2 256 H 62 L (83-108) mmHg ABG HCO3 47 H* 46 H* (21-25) mmol/L ABG Total CO2 49 H 48 H (19-24) mmol/L ABG O2 Saturation >100.0 H 93.6 L (94-97) % Potassium (3.5-5.1) mmol/L Chloride (98-107) mmol/L Carbon Dioxide (22-30) mmol/L Glucose (74-99) mg/dL POC Glucose (mg/dL) (70-110) mg/dL Plasma Lactic Acid Rolf 2.2 H* (0.7-2.0) mmol/L Urine Protein (Negative) Urine Ketones (Negative) Urine Blood (Negative) Urine RBC (0-5) /hpf Urine WBC (0-5) /hpf Urine Bacteria (None) /hpf Hyaline Casts (0-2) /lpf Urine Mucus (None) /hpf 08/29/24 08/29/24 08/29/24 Range/Units 16:03 16:25 23:24 RBC (4.30-5.90) m/uL Hgb (13.0-17.5) gm/dL Hct (39.0-53.0) % Lymphocytes # (1.0-4.8) k/uL APTT (22.0-30.0) sec ABG pCO2 (35-45) mmHg ABG pO2 (83-108) mmHg ABG HCO3 (21-25) mmol/L ABG Total CO2 (19-24) mmol/L ABG O2 Saturation (94-97) % Potassium (3.5-5.1) mmol/L Chloride (98-107) mmol/L Carbon Dioxide (22-30) mmol/L Glucose (74-99) mg/dL POC Glucose (mg/dL) 137 H 172 H (70-110) mg/dL Plasma Lactic Acid Rolf (0.7-2.0) mmol/L Urine Protein Trace H (Negative) Urine Ketones 1+ H (Negative) Urine Blood Large H (Negative) Urine RBC >182 H (0-5) /hpf Urine WBC 9 H (0-5) /hpf Urine Bacteria Rare H (None) /hpf Hyaline Casts 9 H (0-2) /lpf Urine Mucus Few H (None) /hpf 08/30/24 08/30/24 08/30/24 Range/Units 05:00 05:00 05:00 RBC 3.88 L (4.30-5.90) m/uL Hgb 10.9 L (13.0-17.5) gm/dL Hct 34.1 L (39.0-53.0) % Lymphocytes # 0.7 L (1.0-4.8) k/uL APTT (22.0-30.0) sec ABG pCO2 (35-45) mmHg ABG pO2 (83-108) mmHg ABG HCO3 (21-25) mmol/L ABG Total CO2 (19-24) mmol/L ABG O2 Saturation (94-97) % Potassium 3.3 L (3.5-5.1) mmol/L Chloride 89 L (98-107) mmol/L Carbon Dioxide 44 H* (22-30) mmol/L Glucose 163 H (74-99) mg/dL POC Glucose (mg/dL) 158 H (70-110) mg/dL Plasma Lactic Acid Rolf (0.7-2.0) mmol/L Urine Protein (Negative) Urine Ketones (Negative) Urine Blood (Negative) Urine RBC (0-5) /hpf Urine WBC (0-5) /hpf Urine Bacteria (None) /hpf Hyaline Casts (0-2) /lpf Urine Mucus (None) /hpf 08/30/24 Range/Units 05:09 RBC (4.30-5.90) m/uL Hgb (13.0-17.5) gm/dL Hct (39.0-53.0) % Lymphocytes # (1.0-4.8) k/uL APTT (22.0-30.0) sec ABG pCO2 71 H* (35-45) mmHg ABG pO2 133 H (83-108) mmHg ABG HCO3 46 H* (21-25) mmol/L ABG Total CO2 48 H (19-24) mmol/L ABG O2 Saturation 99.5 H (94-97) % Potassium (3.5-5.1) mmol/L Chloride (98-107) mmol/L Carbon Dioxide (22-30) mmol/L Glucose (74-99) mg/dL POC Glucose (mg/dL) (70-110) mg/dL Plasma Lactic Acid Rolf (0.7-2.0) mmol/L Urine Protein (Negative) Urine Ketones (Negative) Urine Blood (Negative) Urine RBC (0-5) /hpf Urine WBC (0-5) /hpf Urine Bacteria (None) /hpf Hyaline Casts (0-2) /lpf Urine Mucus (None) /hpf Assessment and Plan Plan: Acute hypoxemic respiratory failure, secondary to COPD exacerbation, and the patient has developed diffuse bilateral multifocal airspace disease and consolidation. Rule out pneumonia contributing to his acute hypoxic respiratory failure. Currently intubated on the mechanical ventilator. Acute on chronic hypoxic/hypercapnic respiratory failure, currently intubated on mechanical ventilator. Diffuse multifocal pulmonary infiltrates/pneumonia. Rule out underlying ILD. Advanced COPD, maintained on Trelegy Ellipta and DuoNeb updrafts on outpatient basis. Baseline pulmonary function test is not known. Hypertension Hyperlipidemia Obstructive sleep apnea Plan Continue ventilator support and dropped FiO2 as tolerated to maintain saturation above 90%. We should be able to drop down the PEEP to 6 at a later stage. Continue bronchodilators with DuoNeb updrafts Continue IV Solu-Medrol Continue IV Rocephin and Zithromax Obtain sputum cultures and blood cultures Obtain a CAT scan of the chest with contrast Obtain echocardiogram We reviewed the CAT scan of the chest. Will likely need a bronchoscopy endobronchial lavage based on the unexplained diffuse bilateral pulmonary filtrates. Procalcitonin level is not elevated proBNP is mildly elevated Initiate enteral feeding for nutritional support Lovenox for DVT prophylaxis Will try to obtain records from his primary care or primary caregiver in regards to his baseline We will continue to follow and will make further recommendations based on the above-mentioned workup. Condition is critical and the patient is currently intubated on mechanical ventilator. His evaluation was done in 45 minutes. Time with Patient: Greater than 30
--- NOTE | 2024-08-30 13:32 | CT ---
EXAMINATION TYPE: CT chest w con DATE OF EXAM: 08/30/2024 1:14 PM COMPARISON: Chest radiograph CLINICAL INDICATION: Male, 53 years old with history of r/o fibrorosis, ILD; PHH, r/o fibrorosis, ILD TECHNIQUE: Multiple axial images were obtained through the chest. Sagittal and coronal reformats were created for review. MIP was performed on a separate workstation. Contrast used:100ml mL of Isovue 300 with IV Contrast (None if empty) Oral contrast used: (None if empty) CT DLP: 414.7 mGycm, Automated exposure control for dose reduction was used. FINDINGS: LUNGS/ PLEURA: No evidence for honeycombing. Intralobular septal thickening with scattered pulmonary nodules. Nodules throughout the lung example includes right upper lung 8 mm right anterior upper lung 7 mm and others which are hard to delineate from what is thought to be acute airspace disease proces s. Consolidation changes in the right lung base trace right pleural effusion. AIRWAY: Patent and unremarkable. Endotracheal tube terminates above the juan c. No evidence for bronc hial wall thickening or bronchiectasis. HEART: The heart is mildly increased in size. MEDIASTINUM: No gross evidence of adenopathy. VASCULATURE: No aortic aneurysm. The pulmonary trunk is enlarged for size measuring 3.4 cm. MUSCULOSKELETAL: No acute osseous abnormalities, remote appearing right rib injuries involving ribs 8 -11 and on the left ribs 3 through 5 as well as rib 9. SOFT TISSUES/LYMPH NODES: Unremarkable. LOWER NECK: No significant findings. UPPER ABDOMEN: Nasogastric tube terminating in the gastric lumen. Calcification density around the ri ght kidney. IMPRESSION: 1. No evidence for honeycombing to suggest pulmonary fibrosis. 2. Findings suggest pulmonary edema superimposed on infectious process. 3. Pulmonary nodules throughout the lungs should be reassessed when the patient has been medically m anaged. 4. Remote bilateral rib fractures as described above. [facility], , 08/30/2024 1:29 PM
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
[2024-08-30 18:09] LABS: Glucose,Whole Blood 149 mg/dL (70-110)
--- NOTE | 2024-08-30 18:52 | P.PN ---
Subjective This is a pleasant 53 years old male with past medical history of multiple medical problems as below including COPD He was transferred from outside facility already intubated. He is on mechanical ventilation Patient was transferred from [facility]. He presents there because of respiratory distress for 2 days duration associated with dyspnea. He was hypoxic saturating in 70s on room air. In view of his history of COPD and CT of the chest without contrast showing diffuse bilateral airspace opacities with increased pleural thickening and fluid per report findings are suspicious for multifocal pneumonia. Patient was hypotensive and tachycardic. His ABG prior to transfer showing pH is low 7.18 and CO2 is elevated 136. Currently patient cannot provide information. His vitals look stable and afebrile CBC, LFTs are unremarkable as well as metabolic panel with BMP except for elevated carbon dioxide at 44. Troponin is negative Urine analysis suspicious for infection D-dimer is negative at 0.56 pH here is 7.4 and CO2 is 70. Lactic acid is only 2.2 came down to 1.2. proBNP is 857 Chest x-ray showing persistent multiple airspace opacity with multiple right rib fracture 08/30 Patient still intubated and sedated on mechanical ventilation. FiO2 50% and PEEP of 8, tidal volume 450 mL His vitals looks very stable He was little agitated earlier with coughing and shaking requiring one-time dose of Ativan Objective - Vital Signs Vital signs: Vital Signs Temp 98.6 F 08/30/24 04:00 Pulse 105 H 08/30/24 06:00 Resp 15 08/30/24 06:00 BP 115/65 08/30/24 06:00 Pulse Ox 99 08/30/24 06:00 FiO2 50 08/30/24 05:01 Intake & Output 08/29/24 08/29/24 08/30/24 06:59 18:59 06:59 Intake Total 100.000 530.000 Output Total 545 670 Balance -445.000 -140.000 Weight 75 kg 80.6 kg Intake: IV 230 0.9 Pressure bag 30 0.9 kvo 200 Intake, IV Titration 100.000 300.000 Amount propofoL 1,000 mg In 100.000 Empty Bag 1 bag @ 15 MCG/ KG/MIN 15.867 mls/hr IV . Q6H19M [facility] Rx#:[id number] propofoL 1,000 mg In 300.000 Empty Bag 1 bag @ 15 MCG/ KG/MIN 15.867 mls/hr IV . Q6H19M [facility] Rx#:[id number] Output: Gastric Drainage 300 Urine 545 370 Other: Voiding Method Indwelling Catheter Indwelling Catheter ABP, PAP, CO, CI - Last Documented Arterial Blood Pressure 110/58 - Exam -GENERAL: The patient is intubated and sedated HEENT: Pupils are round and equally reacting to light. EOMI. No scleral icterus. No conjunctival pallor. Normocephalic, atraumatic. No pharyngeal erythema. No thyromegaly. CARDIOVASCULAR: S1 and S2 present. No murmurs, rubs, or gallops. PULMONARY: Chest is clear to auscultation, no wheezing , no crackles. ABDOMEN: Soft, nontender, nondistended, normoactive bowel sounds. No palpable organomegaly. MUSCULOSKELETAL: No joint swelling or deformity. EXTREMITIES: No cyanosis, clubbing, or pedal edema. NEUROLOGICAL: Gross neurological examination did not reveal any focal deficits. SKIN: No rashes. no petechiae. - Labs CBC & Chem 7: 08/30/24 05:00 08/30/24 05:00 Labs: Abnormal Lab Results - Last 24 Hours (Table) 08/29/24 08/29/24 08/29/24 Range/Units 11:53 11:53 11:53 RBC (4.30-5.90) m/uL Hgb (13.0-17.5) gm/dL Hct (39.0-53.0) % Lymphocytes # 0.6 L (1.0-4.8) k/uL APTT 21.2 L (22.0-30.0) sec ABG pCO2 (35-45) mmHg ABG pO2 (83-108) mmHg ABG HCO3 (21-25) mmol/L ABG Total CO2 (19-24) mmol/L ABG O2 Saturation (94-97) % Potassium (3.5-5.1) mmol/L Chloride 87 L (98-107) mmol/L Carbon Dioxide 44 H* (22-30) mmol/L Glucose 125 H (74-99) mg/dL POC Glucose (mg/dL) (70-110) mg/dL Plasma Lactic Acid Rolf (0.7-2.0) mmol/L Urine Protein (Negative) Urine Ketones (Negative) Urine Blood (Negative) Urine RBC (0-5) /hpf Urine WBC (0-5) /hpf Urine Bacteria (None) /hpf Hyaline Casts (0-2) /lpf Urine Mucus (None) /hpf 08/29/24 08/29/24 08/29/24 Range/Units 11:53 12:13 16:02 RBC (4.30-5.90) m/uL Hgb (13.0-17.5) gm/dL Hct (39.0-53.0) % Lymphocytes # (1.0-4.8) k/uL APTT (22.0-30.0) sec ABG pCO2 70 H 73 H* (35-45) mmHg ABG pO2 256 H 62 L (83-108) mmHg ABG HCO3 47 H* 46 H* (21-25) mmol/L ABG Total CO2 49 H 48 H (19-24) mmol/L ABG O2 Saturation >100.0 H 93.6 L (94-97) % Potassium (3.5-5.1) mmol/L Chloride (98-107) mmol/L Carbon Dioxide (22-30) mmol/L Glucose (74-99) mg/dL POC Glucose (mg/dL) (70-110) mg/dL Plasma Lactic Acid Rolf 2.2 H* (0.7-2.0) mmol/L Urine Protein (Negative) Urine Ketones (Negative) Urine Blood (Negative) Urine RBC (0-5) /hpf Urine WBC (0-5) /hpf Urine Bacteria (None) /hpf Hyaline Casts (0-2) /lpf Urine Mucus (None) /hpf 08/29/24 08/29/24 08/29/24 Range/Units 16:03 16:25 23:24 RBC (4.30-5.90) m/uL Hgb (13.0-17.5) gm/dL Hct (39.0-53.0) % Lymphocytes # (1.0-4.8) k/uL APTT (22.0-30.0) sec ABG pCO2 (35-45) mmHg ABG pO2 (83-108) mmHg ABG HCO3 (21-25) mmol/L ABG Total CO2 (19-24) mmol/L ABG O2 Saturation (94-97) % Potassium (3.5-5.1) mmol/L Chloride (98-107) mmol/L Carbon Dioxide (22-30) mmol/L Glucose (74-99) mg/dL POC Glucose (mg/dL) 137 H 172 H (70-110) mg/dL Plasma Lactic Acid Rolf (0.7-2.0) mmol/L Urine Protein Trace H (Negative) Urine Ketones 1+ H (Negative) Urine Blood Large H (Negative) Urine RBC >182 H (0-5) /hpf Urine WBC 9 H (0-5) /hpf Urine Bacteria Rare H (None) /hpf Hyaline Casts 9 H (0-2) /lpf Urine Mucus Few H (None) /hpf 08/30/24 08/30/24 08/30/24 Range/Units 05:00 05:00 05:00 RBC 3.88 L (4.30-5.90) m/uL Hgb 10.9 L (13.0-17.5) gm/dL Hct 34.1 L (39.0-53.0) % Lymphocytes # 0.7 L (1.0-4.8) k/uL APTT (22.0-30.0) sec ABG pCO2 (35-45) mmHg ABG pO2 (83-108) mmHg ABG HCO3 (21-25) mmol/L ABG Total CO2 (19-24) mmol/L ABG O2 Saturation (94-97) % Potassium 3.3 L (3.5-5.1) mmol/L Chloride 89 L (98-107) mmol/L Carbon Dioxide 44 H* (22-30) mmol/L Glucose 163 H (74-99) mg/dL POC Glucose (mg/dL) 158 H (70-110) mg/dL Plasma Lactic Acid Rolf (0.7-2.0) mmol/L Urine Protein (Negative) Urine Ketones (Negative) Urine Blood (Negative) Urine RBC (0-5) /hpf Urine WBC (0-5) /hpf Urine Bacteria (None) /hpf Hyaline Casts (0-2) /lpf Urine Mucus (None) /hpf 08/30/24 Range/Units 05:09 RBC (4.30-5.90) m/uL Hgb (13.0-17.5) gm/dL Hct (39.0-53.0) % Lymphocytes # (1.0-4.8) k/uL APTT (22.0-30.0) sec ABG pCO2 71 H* (35-45) mmHg ABG pO2 133 H (83-108) mmHg ABG HCO3 46 H* (21-25) mmol/L ABG Total CO2 48 H (19-24) mmol/L ABG O2 Saturation 99.5 H (94-97) % Potassium (3.5-5.1) mmol/L Chloride (98-107) mmol/L Carbon Dioxide (22-30) mmol/L Glucose (74-99) mg/dL POC Glucose (mg/dL) (70-110) mg/dL Plasma Lactic Acid Rolf (0.7-2.0) mmol/L Urine Protein (Negative) Urine Ketones (Negative) Urine Blood (Negative) Urine RBC (0-5) /hpf Urine WBC (0-5) /hpf Urine Bacteria (None) /hpf Hyaline Casts (0-2) /lpf Urine Mucus (None) /hpf Assessment and Plan Assessment: Acute hypoxic hypercapnic respiratory failure s/p intubation and mechanical ventilation Bilateral multifocal pneumonia Acute COPD exacerbation Possible acute urinary tract infection Multiple right-sided rib fracture Respiratory acidosis, acute Plan: Continue with ceftriaxone follow-up culture results, both blood culture and sputum culture which were sent Continue with mechanical ventilation per pulmonary/critical care team Pulmonary team consult Patient on IV Solu-Medrol On ceftriaxone 2 g daily Labs and medication were reviewed.. Continue same treatment. Continue with symptomatic treatment. Resume home medication. Monitor labs and vitals. DVT and GI prophylaxis. Further recommendations as per clinical course of the patient DVT prophylaxis: Subcutaneous h Lovenox GI Prophylaxis: Protonix Prognosis is guarded
--- NOTE | 2024-08-30 19:26 | XR ---
EXAMINATION TYPE: XR chest 1V portable DATE OF EXAM: 08/30/2024 5:39 PM COMPARISON: 08/30/2024 earlier exam CLINICAL INDICATION: Male, 53 years old with history of OG tube placement recheck, TECHNIQUE: XR chest 1V portable view(s) obtained. FINDINGS: The heart size is normal. The pulmonary vasculature is prominent. Diffuse increased lung markings are present bilaterally. Focal consolidation is not identified. Endotracheal tube tip is 5.4 cm above the juan c. Nasogastric tube tip is in the left upper quadrant of the abdomen. Left central venous catheter is present with the tip in the proximal right atrium. IMPRESSION: 1. Worsening diffuse bilateral lung infiltrates. Continued follow-up is recommended. 2. Lines and catheters discussed above. [facility], , 08/30/2024 7:23 PM
[2024-08-31] MEDS: fentaNYL (PF). 1,000 MCG in SODIUM CHLORIDE 0.9% 80 ML IV SCH (00:15)
[2024-08-31 01:24] LABS: Glucose,Whole Blood 154 mg/dL (70-110)
[2024-08-31 05:01] LABS: Glucose,Whole Blood 137 mg/dL (70-110)
[2024-08-31 05:26] LABS: Basophils % (A) 0 %; Eosinophils % (A) 0 %; HCT 33.5 % (39.0-53.0); HGB 10.6 gm/dL (13.0-17.5); Hypochromasia Slight; Lymphocytes # (A) 0.6 k/uL (1.0-4.8); Lymphocytes % (A) 4 %; MCH 28.8 pg (25.0-35.0); MCHC 31.6 g/dL (31.0-37.0); Mean Platelet Volume 7.2; Monocytes % (A) 7 %; Neutrophils # (A) 12.9 k/uL (1.3-7.7); Neutrophils % (A) 88 %; Platelet Count 262 k/uL (150-450); RBC 3.69 m/uL (4.30-5.90); WBC 14.7 k/uL (3.8-10.6)
[2024-08-31 05:34] LABS: ABG Base Excess 20.6 mmol/L; ABG Oxygen Saturation 94.7 % (94-97); ABG PH 7.42 (7.35-7.45); ABG PO2 68 mmHg (83-108); ABG TCO2 51 mmol/L (19-24)
[2024-08-31 05:48] LABS: ABG PCO2 76 mmHg (35-45)
[2024-08-31 05:49] LABS: African American GFR (CKD) >90 (>60 ml/min/1.73 sqM); Blood Urea Nitrogen 25 mg/dL (9-20); Calcium 8.9 mg/dL (8.4-10.2); Chloride 91 mmol/L (98-107); Glucose 131 mg/dL (74-99); Non-African American GFR(CKD) >90 (>60 ml/min/1.73 sqM); Potassium 3.2 mmol/L (3.5-5.1); Sodium 140 mmol/L (137-145)
[2024-08-31 05:49] LABS: ABG HCO3 49 mmol/L (21-25); Allen Test Performed? no
[2024-08-31 05:56] LABS: Anion Gap 3 mmol/L
[2024-08-31 05:58] LABS: Carbon Dioxide 46 mmol/L (22-30)
--- NOTE | 2024-08-31 06:46 | P.PN ---
Subjective This is a pleasant 53 years old male with past medical history of multiple medical problems as below including COPD He was transferred from outside facility already intubated. He is on mechanical ventilation Patient was transferred from [facility]. He presents there because of respiratory distress for 2 days duration associated with dyspnea. He was hypoxic saturating in 70s on room air. In view of his history of COPD and CT of the chest without contrast showing diffuse bilateral airspace opacities with increased pleural thickening and fluid per report findings are suspicious for multifocal pneumonia. Patient was hypotensive and tachycardic. His ABG prior to transfer showing pH is low 7.18 and CO2 is elevated 136. Currently patient cannot provide information. His vitals look stable and afebrile CBC, LFTs are unremarkable as well as metabolic panel with BMP except for elevated carbon dioxide at 44. Troponin is negative Urine analysis suspicious for infection D-dimer is negative at 0.56 pH here is 7.4 and CO2 is 70. Lactic acid is only 2.2 came down to 1.2. proBNP is 857 Chest x-ray showing persistent multiple airspace opacity with multiple right rib fracture 08/30 Patient still intubated and sedated on mechanical ventilation. FiO2 50% and PEEP of 8, tidal volume 450 mL His vitals looks very stable He was little agitated earlier with coughing and shaking requiring one-time dose of Ativan 08/31 Patient is still intubated requiring mechanical ventilation Patient with no fever and vitals with stable blood pressure and heart rate since admission. WBC went up from 7.8-14.7 while he is on steroids. pH 7.4 and pCO2 is high 76. Sodium 140, potassium 3.2. Creatinine normal. Glucose controlled. Currently kept on IV Solu-Medrol and ceftriaxone and Zithromax Patient had CT of the chest showing no honeycombing but pulmonary edema superimposed on bacterial infection Eliquis pulmonary nodules throughout the lungs bilaterally mainly in the lower lung. Review of system: N/AA Active Medications Generic Name Dose Route Start Last Admin Trade Name Freq PRN Reason Stop Dose Admin Acetaminophen 650 mg 08/30/24 09:34 08/30/24 09:38 Acetaminophen Tab 325 Mg Tab PO 650 mg Q6HR PRN Administration Fever and/ or Pain Albuterol/Ipratropium 3 ml 08/29/24 16:00 08/31/24 04:28 Ipratropium-Albuterol 3 Ml Neb INHALATION 3 ml RT-Q4H CHRIS Administration Budesonide 1 mg 08/29/24 20:00 08/30/24 18:56 Budesonide 1 Mg/2 Ml Nebu INHALATION 1 mg RT-BID CHRIS Administration Chlorhexidine Gluconate 15 ml 08/29/24 21:00 08/30/24 21:31 Chlorhexidine Gluconate 15 Ml Cup MUCOUS MEM 15 ml BID CHRIS Administration Dextrose/Water 25 ml 08/30/24 07:31 Dextrose 50% Syringe 50 Ml IVP PER PROTOCOL PRN Hypoglycemia Protocol Dextrose/Water 50 ml 08/30/24 07:31 Dextrose 50% Syringe 50 Ml IVP PER PROTOCOL PRN Hypoglycemia Protocol Enoxaparin Sodium 40 mg 08/30/24 09:00 08/30/24 08:32 Enoxaparin 40 Mg/0.4 Ml Syringe SQ 40 mg DAILY CHRIS Administration Formoterol Fumarate 20 mcg 08/29/24 20:00 08/30/24 18:56 Formoterol Fumarate 20 Mcg/2 Ml Nebu INHALATION 20 mcg RT-BID CHRIS Administration Ceftriaxone Sodium 2 gm/ 50 mls @ 100 mls/hr 08/30/24 09:00 08/30/24 08:39 Sodium Chloride IVPB 100 mls/hr Q24HR CHRIS Administration Protocol Propofol 1,000 mg/ IV Solution 100 mls @ 15.867 mls/hr 08/29/24 17:47 08/31/24 00:00 IV 50 mcg/kg/min .Q6H19M CHRIS 52.89 mls/hr Administration Protocol 15 MCG/KG/MIN Fentanyl Citrate 1,000 mcg/ 100 mls @ 4.03 mls/hr 08/30/24 23:45 08/31/24 00:15 Sodium Chloride IV 0.5 mcg/kg/hr .Q24H CHRIS 4.03 mls/hr Administration Protocol 0.5 MCG/KG/HR Insulin Aspart 0 unit 08/30/24 12:00 08/31/24 06:20 Insulin Aspart (Novolog) 100 Unit/Ml Vial SQ Not Given Q6HR CHRIS Protocol Methylprednisolone Sodium Succinate 60 mg 08/29/24 18:00 08/31/24 01:33 Methylprednisolone Sod Succi 125 Mg/2 Ml Vial IV 60 mg Q6HR CHRIS Administration Miscellaneous Information 1 each 08/29/24 15:05 Potassium Replacement Protocol 1 Each Misc MISCELLANE DAILY PRN Per Protocol Miscellaneous Information 1 each 08/29/24 15:05 Magnesium Replacement Protocol 1 Each [facility] [place] DAILY PRN Per Protocol Protocol Miscellaneous Information 1 each 08/30/24 11:13 Rx Info: Iv Contrast Was Given 1 Each [facility] [place] 09/01/24 11:14 DAILY PRN Per Protocol Miscellaneous Information 1 each 08/30/24 12:48 Rx Info: Iv Contrast Was Given 1 Each [facility] [place] 09/01/24 12:52 DAILY PRN Per Protocol Naloxone HCl 0.2 mg 08/29/24 13:49 Naloxone 0.4 Mg/Ml 1 Ml Vial IV Q2M PRN Opioid Reversal Pantoprazole Sodium 40 mg 08/30/24 09:00 08/30/24 08:33 Pantoprazole 40 Mg/10 Ml Vial IVP 40 mg DAILY CHRIS Administration Objective - Vital Signs Vital signs: Vital Signs Temp 98.3 F 08/31/24 04:00 Pulse 84 08/31/24 06:00 Resp 15 08/31/24 06:00 BP 110/62 08/31/24 06:00 Pulse Ox 95 08/31/24 06:00 FiO2 40 08/31/24 04:27 Intake & Output 08/30/24 08/30/24 08/31/24 06:59 18:59 06:59 Intake Total 630.000 453 787 Output Total 670 460 372 Balance -40.000 -7 415 Weight 80.6 kg 80.6 kg 80.6 kg Intake: IV 230 253 437 0.9 Pressure bag 30 33 57 0.9 kvo 200 220 380 Intake, IV Titration 400.000 200 100 Amount propofoL 1,000 mg In 400.000 200 100 Empty Bag 1 bag @ 15 MCG/ KG/MIN 15.867 mls/hr IV . Q6H19M [facility] Rx#:[id number] Tube Feeding 160 Other 90 Output: Gastric Drainage 300 Urine 370 460 372 Other: Voiding Method Indwelling Catheter Indwelling Catheter Indwelling Catheter ABP, PAP, CO, CI - Last Documented Arterial Blood Pressure 101/68 - Exam -GENERAL: The patient is intubated and sedated HEENT: Pupils are round and equally reacting to light. EOMI. No scleral icterus. No conjunctival pallor. Normocephalic, atraumatic. No pharyngeal erythema. No thyromegaly. CARDIOVASCULAR: S1 and S2 present. No murmurs, rubs, or gallops. PULMONARY: Chest is clear to auscultation, no wheezing , no crackles. ABDOMEN: Soft, nontender, nondistended, normoactive bowel sounds. No palpable organomegaly. MUSCULOSKELETAL: No joint swelling or deformity. EXTREMITIES: No cyanosis, clubbing, or pedal edema. NEUROLOGICAL: Gross neurological examination did not reveal any focal deficits. SKIN: No rashes. no petechiae. - Labs CBC & Chem 7: 08/31/24 04:50 08/31/24 04:50 Labs: Abnormal Lab Results - Last 24 Hours (Table) 08/30/24 08/30/24 08/31/24 Range/Units 12:10 18:07 01:22 WBC (3.8-10.6) k/uL RBC (4.30-5.90) m/uL Hgb (13.0-17.5) gm/dL Hct (39.0-53.0) % Neutrophils # (1.3-7.7) k/uL Lymphocytes # (1.0-4.8) k/uL ABG pCO2 (35-45) mmHg ABG pO2 (83-108) mmHg ABG HCO3 (21-25) mmol/L ABG Total CO2 (19-24) mmol/L Potassium (3.5-5.1) mmol/L Chloride (98-107) mmol/L Carbon Dioxide (22-30) mmol/L BUN (9-20) mg/dL Glucose (74-99) mg/dL POC Glucose (mg/dL) 184 H 149 H 154 H (70-110) mg/dL 08/31/24 08/31/24 08/31/24 Range/Units 04:50 04:50 04:55 WBC 14.7 H (3.8-10.6) k/uL RBC 3.69 L (4.30-5.90) m/uL Hgb 10.6 L (13.0-17.5) gm/dL Hct 33.5 L (39.0-53.0) % Neutrophils # 12.9 H (1.3-7.7) k/uL Lymphocytes # 0.6 L (1.0-4.8) k/uL ABG pCO2 76 H* (35-45) mmHg ABG pO2 68 L (83-108) mmHg ABG HCO3 49 H* (21-25) mmol/L ABG Total CO2 51 H (19-24) mmol/L Potassium 3.2 L (3.5-5.1) mmol/L Chloride 91 L (98-107) mmol/L Carbon Dioxide 46 H* (22-30) mmol/L BUN 25 H (9-20) mg/dL Glucose 131 H (74-99) mg/dL POC Glucose (mg/dL) (70-110) mg/dL 08/31/24 Range/Units 04:59 WBC (3.8-10.6) k/uL RBC (4.30-5.90) m/uL Hgb (13.0-17.5) gm/dL Hct (39.0-53.0) % Neutrophils # (1.3-7.7) k/uL Lymphocytes # (1.0-4.8) k/uL ABG pCO2 (35-45) mmHg ABG pO2 (83-108) mmHg ABG HCO3 (21-25) mmol/L ABG Total CO2 (19-24) mmol/L Potassium (3.5-5.1) mmol/L Chloride (98-107) mmol/L Carbon Dioxide (22-30) mmol/L BUN (9-20) mg/dL Glucose (74-99) mg/dL POC Glucose (mg/dL) 137 H (70-110) mg/dL Microbiology - Last 24 Hours (Table) 08/29/24 11:53 Blood Culture - Preliminary Blood 08/29/24 14:21 Gram Stain - Preliminary Sputum Assessment and Plan Assessment: Acute hypoxic hypercapnic respiratory failure s/p intubation and mechanical ventilation Bilateral multifocal pneumonia Acute COPD exacerbation bilateral pulmonary nodules throughout both lungs more o n the lower zones Possible acute urinary tract infection Multiple right-sided rib fracture Respiratory acidosis, acute Plan: Continue with ceftriaxone and Zithromax follow-up culture results, both blood culture and sputum culture which were sent Continue with mechanical ventilation per pulmonary/critical care team Pulmonary team consult Patient on IV Solu-Medrol Patient may benefit from bronchoscopy per pulmonary team Labs and medication were reviewed.. Continue same treatment. Continue with symptomatic treatment. Resume home medication. Monitor labs and vitals. DVT and GI prophylaxis. Further recommendations as per clinical course of the patient DVT prophylaxis: Subcutaneous h Lovenox GI Prophylaxis: Protonix Prognosis is guarded
--- NOTE | 2024-08-31 07:50 | XR ---
EXAMINATION TYPE: XR chest 1V DATE OF EXAM: 08/31/2024 4:21 AM COMPARISON: Multiple radiographs, with the most recent on 08/30/2024 TECHNIQUE: XR chest 1V Frontal view of the chest. CLINICAL INDICATION:Male, 53 years old with history of tube placement; FINDINGS: Lungs/Pleura: No pneumothorax or pleural effusion. Similar diffuse multifocal patchy airspace opaciti es. Pulmonary vascularity: Unremarkable. Heart/mediastinum: Cardiomediastinal silhouette is unremarkable. Musculoskeletal: Bilateral lower rib fractures with callus formation. Other findings: Similar calcifications and/or suture material within the right upper quadrant. Lines/Tubes: Endotracheal tube with distal tip 4.7 cm above the juan c Nasogastric tube with its distal tip and side-port projecting under the diaphragm and projecting over the gastric lumen. Left internal jugular central venous catheter with distal tip at the superior cavoatrial junction. Loop recorder overlies the left chest. IMPRESSION: 1. Similar multifocal airspace opacities concerning for pneumonia. 2. Stable support lines and tubes. [facility], , 08/31/2024 7:48 AM
[2024-08-31] MEDS ORDERED: Potassium Replacement Protocol 1 EACH MISC MISCELLANE PRN (08:27)
--- NOTE | 2024-08-31 08:43 | CA ---
Transthoracic Echo Report Name: Philipp Tyson Age: 53 Gender: M : 1970 Exam Date: 08/30/2024 11:29 Exam Location: [facility] Ht (in): 68 Wt (lb): 177 Ordering Physician: Jalil Cabello MD Attending/Referring Phys: [id number] Software Engineer Erika Aguilera RDCS Procedure CPT: Indications: Cardiac assessment Cardiac Hx: Technical Quality: Fair, Technically difficult study pt on vent and supine Contrast 1: Total Dose (mL): Contrast 2: Total Dose (mL): MEASUREMENTS (Male / Female) Normal Values 2D ECHO LV Diastolic Diameter PLAX 4.0 cm 4.2 - 5.9 / 3.9 - 5.3 cm LV Systolic Diameter PLAX 2.3 cm IVS Diastolic Thickness 0.9 cm 0.6 - 1.0 / 0.6 - 0.9 cm LVPW Diastolic Thickness 0.8 cm 0.6 - 1.0 / 0.6 - 0.9 cm LV Relative Wall Thickness 0.4 M-MODE Aortic Root Diameter MM 3.5 cm LA Systolic Diameter MM 3.0 cm LA Ao Ratio MM 0.9 AV Cusp Separation MM 2.1 cm DOPPLER AV Peak Velocity 162.5 cm/s AV Peak Gradient 10.6 mmHg AV Mean Velocity 112.4 cm/s AV Mean Gradient 5.9 mmHg AV Velocity Time Integral 23.1 cm LVOT Peak Velocity 109.3 cm/s LVOT Peak Gradient 4.8 mmHg LVOT Velocity Time Integral 17.7 cm MV Area PHT 3.6 cm??? Mitral E Point Velocity 98.2 cm/s Mitral A Point Velocity 121.4 cm/s Mitral E to A Ratio 0.8 MV Deceleration Time 212.4 ms TR Peak Velocity 202.3 cm/s TR Peak Gradient 21.8 mmHg Right Atrial Pressure 20.0 mmHg Pulmonary Artery Systolic Pressu 36.4 mmHg Right Ventricular Systolic Press 36.4 mmHg FINDINGS Left Ventricle Left ventricular ejection fraction is estimated at 55-60 %. Normal Left ventricular size, wall thickness, systolic function with no obvious regional wall motion abnormalities. Right Ventricle Moderate right ventricular dilatation. Reduced right ventricular global systolic function. Mild pulmonary hypertension. Right Atrium Mild right atrial dilatation. Left Atrium Mild left atrial dilatation. Mitral Valve Structurally normal mitral valve. Trace to mild mitral regurgitation. No mitral stenosis. Aortic Valve Trileaflet aortic valve. No aortic valve stenosis or regurgitation. Tricuspid Valve Structurally normal tricuspid valve. Mild tricuspid regurgitation. No tricuspid stenosis. Pulmonic Valve Structurally normal pulmonic valve. Trace pulmonic regurgitation. No pulmonic stenosis. Pericardium Echo free space anterior to the right ventricle likely represents a fat pad. Aorta Normal size aortic root and proximal ascending aorta. CONCLUSIONS Technically difficult study for interpretation Normal LV systolic function Mild pulmonary hypertension Dilated RV with mildly reduced systolic function No significant valvular abnormality Previewed by: Dr. Valdo Owens MD (Electronically Signed) Final Date: 31 August 2024 08:43
[2024-08-31] MEDS: POTASSIUM BICARBONATE/CIT AC 20 MEQ TABLET.EFF NG-TUBE SCH ×2 (09:02→18:27)
[2024-08-31 12:13] LABS: Glucose,Whole Blood 133 mg/dL (70-110)
--- NOTE | 2024-08-31 13:07 | P.PN ---
Subjective Progress Note Date: 08/31/24 53-year-old male who was transferred down, by EMS, from an outside hospital, with respiratory failure. The patient apparently has a history of severe COPD, and the patient was intubated, at the outside hospital, after he failed BiPAP. Apparently his PaCO2 on blood gas was 137. The patient is seen today in the emergency department, trauma room 2. His vent settings include volume assist- control, rate 14, tidal volume 450, FiO2 50%, and PEEP of 5. The patient is getting propofol at 25 mcg/kg/min. He apparently has a history of COPD, and sleep apnea, and apparently is noncompliant with medications. No other history is available other than the fact that he has COPD and sleep apnea. Home medica tions apparently include Trelegy, saline nasal rinse, vitamins, metoprolol, updrafts, with ipratropium bromide and albuterol, Motrin, Flonase nasal spray, Flexeril, Lipitor, aspirin, amlodipine, albuterol inhaler, and Tylenol. Based on these medications it appears in addition to COPD, the patient has a history of gastroesophageal reflux disease, hyperlipidemia, and hypertension. Current laboratory data includes a white count 8.3, hemoglobin 13.2, hematocrit 40.2, and a platelet count 239,000. Blood gases show pO2 of 256, pCO2 of 70, and a pH of 7.44. Bicarbonate concentration on the blood gas was 47, on the electrolyte profile was 44. Sodium 139, potassium 3.9, chloride 87, CO2 44, BUN 19, and creatinine 0.79. Lactic acid was 2.2. Glucose 125. The rest of the CMP looks relatively normal. Viral screen was negative. Chest x-ray shows bilateral airspace opacities, which could be consistent with pneumonia. 08/30/2024, the patient is being seen for a follow-up. The patient has severe COPD and she was intubated in outside hospital after she failed BiPAP and the patient was transferred to us for further care. No further information is available regarding his baseline respiratory status. To my knowledge, the patient has been maintained on Trelegy Ellipta on an outpatient basis in addition to DuoNeb updrafts [id number]. At this point in time, the patient is intubated on the mechanical ventilator and the chest x-ray is showing diffuse bilateral pulmonary infiltrates. This is consistent with multifocal airspace disease. Underlying ILD cannot be completely ruled out. This morning, the patient is on propofol running at 50 mcg/kg/min. He is on assist-control mode of mechanical ventilation at rate of 20, tidal volume of 450, FiO2 40% with a PEEP of 5. Blood gas showed pH of 7.42 with a pCO2 of 71 and pO2 of 133. His peak airway pressure is at 31. Limited crackles and wheezing on today's examination. Cardiac rhythm is sinus. Remains on IV Rocephin and Zithromax. White cell count of 7.8 with him of 10.9 and a platelet count of 242. Sodium is at 138, potassium is at 3.3, bicarb is at 44, BUN is 19 with a creatinine of 0.74. The patient has a proBNP level of 857. Procalcitonin level is at 0.07. Lactic acid level is at 1.2. He is well sedated, calm and comfortable, maintained on wound bronchodilators, maintained on Solu-Medrol, maintained on L ovenox for DVT prophylaxis. On 08/31/2024, the patient is being seen for a follow-up. Patient remains intubated on mechanical ventilator. This morning, he is on propofol running at 40 mcg/kg/min and is also on fentanyl drip at 0.5 mcg/kg/h. Calm and comfortable and synchronous on mechanical ventilator. He remains on assist- control mode of mechanical ventilation at the rate of 14, tidal volume of 450, FiO2 of 40% with a PEEP of 5. Blood gas showed a pH of 7.42 with a pCO2 of 76 and pO2 68. IV fluids are KVO and the patient is eating vital high-protein at rate of 20 cc an hour. Afebrile. Hemodynamically stable. CAT scan of the chest was completed yesterday and it shows diffuse emphysematous changes bilaterally. No evidence of any fibrosis although there is some interlobular septal thickening with scattered pulmonary nodularity specially along the pleural lining. There is also subcentimeter pulmonary nodules and consolidation in the right lung base with a small right-sided pleural effusion. He is having mild to moderate amount of secretions. Based on that, I performed a bro nchoscopy on this patient and a total of 20 cc of purulent respiratory secretions were suctioned out and following that the bronchoalveolar lavage of the right lower lobe was done. The white cell count is 14.7 with a hemoglobin 10.6 and a platelet count of 262. Sodium is at 140, potassium is at 3.2, bicarb is at 46 and rest of the electrolytes are essentially within normal limits. The procalcitonin level was at 0.07 the time of admission. Objective - Vital Signs Vital signs: Vital Signs Temp 98.3 F 08/31/24 04:00 Pulse 73 08/31/24 07:00 Resp 14 08/31/24 07:00 BP 107/59 08/31/24 07:00 Pulse Ox 96 08/31/24 07:00 FiO2 40 08/31/24 04:27 Intake & Output 08/30/24 08/31/24 08/31/24 18:59 06:59 18:59 Intake Total 453 987 66 Output Total 460 372 25 Balance -7 615 41 Weight 80.6 kg 80.6 kg Intake: IV 253 437 46 0.9 Pressure bag 33 57 6 0.9 kvo 220 380 40 Intake, IV Titration 200 300 Amount propofoL 1,000 mg In 200 300 Empty Bag 1 bag @ 15 MCG/ KG/MIN 15.867 mls/hr IV . Q6H19M [facility] Rx#:[id number] Tube Feeding 160 20 Other 90 Output: Urine 460 372 25 Other: Voiding Method Indwelling Catheter Indwelling Catheter ABP, PAP, CO, CI - Last Documented Arterial Blood Pressure 101/68 - Exam The patient appeared well nourished and normally developed., Comfortable, intubated on mechanical ventilator. Orogastric endotracheal tube are both in place and the patient is well sedated with propofol And fentanyl drip Head exam is unremarkable. No scleral icterus or corneal arcus noted. Neck is without jugular venous distension, thyromegaly, or carotid bruits. Carotid upstrokes are brisk bilaterally. Lungs are diminished bilaterally patient has bibasilar crackles along with scattered expiratory wheezes throughout the lung dickens bilaterally. Cardiac exam reveals the PMI to be normally sized and situated. Rhythm is regular. First and second heart sounds normal. No murmurs, rubs or gallops. Abdominal exam reveals normal bowel sounds, no masses, no organomegaly and no aortic enlargement. Extremities are nonedematous and both femoral and pedal pulses are normal. Examination of the skin revealed no evidence of significant rashes, suspicious appearing nevi or other concerning lesions. Neurologically, the patient is sedated and, comfortable and he does not have any focal neurological deficit. Cranial nerves are essentially intact. - Labs CBC & Chem 7: 08/31/24 04:50 08/31/24 04:50 Labs: Abnormal Lab Results - Last 24 Hours (Table) 08/30/24 08/30/24 08/31/24 Range/Units 12:10 18:07 01:22 WBC (3.8-10.6) k/uL RBC (4.30-5.90) m/uL Hgb (13.0-17.5) gm/dL Hct (39.0-53.0) % Neutrophils # (1.3-7.7) k/uL Lymphocytes # (1.0-4.8) k/uL ABG pCO2 (35-45) mmHg ABG pO2 (83-108) mmHg ABG HCO3 (21-25) mmol/L ABG Total CO2 (19-24) mmol/L Potassium (3.5-5.1) mmol/L Chloride (98-107) mmol/L Carbon Dioxide (22-30) mmol/L BUN (9-20) mg/dL Glucose (74-99) mg/dL POC Glucose (mg/dL) 184 H 149 H 154 H (70-110) mg/dL 08/31/24 08/31/24 08/31/24 Range/Units 04:50 04:50 04:55 WBC 14.7 H (3.8-10.6) k/uL RBC 3.69 L (4.30-5.90) m/uL Hgb 10.6 L (13.0-17.5) gm/dL Hct 33.5 L (39.0-53.0) % Neutrophils # 12.9 H (1.3-7.7) k/uL Lymphocytes # 0.6 L (1.0-4.8) k/uL ABG pCO2 76 H* (35-45) mmHg ABG pO2 68 L (83-108) mmHg ABG HCO3 49 H* (21-25) mmol/L ABG Total CO2 51 H (19-24) mmol/L Potassium 3.2 L (3.5-5.1) mmol/L Chloride 91 L (98-107) mmol/L Carbon Dioxide 46 H* (22-30) mmol/L BUN 25 H (9-20) mg/dL Glucose 131 H (74-99) mg/dL POC Glucose (mg/dL) (70-110) mg/dL 08/31/24 Range/Units 04:59 WBC (3.8-10.6) k/uL RBC (4.30-5.90) m/uL Hgb (13.0-17.5) gm/dL Hct (39.0-53.0) % Neutrophils # (1.3-7.7) k/uL Lymphocytes # (1.0-4.8) k/uL ABG pCO2 (35-45) mmHg ABG pO2 (83-108) mmHg ABG HCO3 (21-25) mmol/L ABG Total CO2 (19-24) mmol/L Potassium (3.5-5.1) mmol/L Chloride (98-107) mmol/L Carbon Dioxide (22-30) mmol/L BUN (9-20) mg/dL Glucose (74-99) mg/dL POC Glucose (mg/dL) 137 H (70-110) mg/dL Microbiology - Last 24 Hours (Table) 08/29/24 11:53 Blood Culture - Preliminary Blood 08/29/24 14:21 Gram Stain - Preliminary Sputum Assessment and Plan Plan: Acute hypoxemic respiratory failure, secondary to COPD exacerbation. Remains intubated on mechanical ventilator. Right lower lobe consolidation/pneumonia. Procalcitonin level is within normal limits. Respiratory secretions are abundant and the patient underwent a bronchoscopy and therapeutic airway suctioning and a bronchioloalveolar lavage of the right lower lobe. Acute on chronic hypoxic/hypercapnic respiratory failure, currently intubated on mechanical ventilator. The patient is acid-base status seems to be compensated at this point in time. Oxygenation is also stable. Chronic pleural nodularities and thickening in addition to old right-sided rib fractures. Advanced COPD, maintained on Trelegy Ellipta and DuoNeb updrafts on outpatient basis. Baseline pulmonary function test is not known. Hypertension Hyperlipidemia Obstructive sleep apnea Plan Continue ventilator support, no changes Continue bronchodilators with DuoNeb updrafts Continue IV Solu-Medrol Continue IV Rocephin Bronchoscopy endobronchial lavage of the right lower lobe was done CAT scan of the chest was noted Echo was noted and the patient has a preserved LV function, dilated RV due to chronic lung disease. Procalcitonin level is not elevated proBNP is mildly elevated Initiate enteral feeding for nutritional support Lovenox for DVT prophylaxis Will try to obtain records from his primary care or primary caregiver in regards to his baseline We will continue to follow and will make further recommendations based on the above-mentioned workup. Condition is critical and the patient is currently intubated on mechanical ventilator. His evaluation was done in 45 minutes. Time with Patient: Greater than 30
--- NOTE | 2024-08-31 13:09 | P.PCN ---
Date of Procedure: 08/31/24 Preoperative Diagnosis: Acute hypoxic respiratory failure, chronic hypercapnic respiratory failure, right lower lobe pneumonia Postoperative Diagnosis: Same Procedure(s) Performed: Flexible bronchoscopy, bronchoalveolar lavage of the right lower lobe Anesthesia: MAC Surgeon: Gerardo Nur Estimated Blood Loss (ml): 0 Pathology: other Condition: critical Disposition: ICU Operative Findings: The procedure was done in the intensive care unit. Consent was obtained. Timeout was done. The patient was on a intubated on mechanical ventilator and the patient was receiving a combination of propofol and fentanyl The flexible bronchoscope was recently inserted through the orotracheal tube and the distal trachea was essentially within normal limits. The patient had liquidy loose but purulent respiratory secretions scattered in the right mainstem bronchus and the secretions were suctioned out without any major difficulties. More secretions were seen in the bronchus intermedius and the right lower lobe bronchus. Therapeutic airway suctioning was done and total of 20 cc of purulent material was aspirated. Airway inspection was completed. The visualized airways including the bilateral mainstem bronchi, right upper lobe bronchus, bronchus intermedius, right middle lobe bronchus and the right lower lobe bronchus and the various 10 segments on the right and examination of the left side including left upper lobe bronchus and the left lower lobe bronchus and the various 8 segments on the left. No endobronchial tumors or lesions. The bronchial mucosa was healthy. The bronchoscope was brought to the right lower lobe endobronchial lavage was done. A total of 20 cc of aspirate was obtained after infusing the right lower lobe with saline. The aspirate was nonbloody. This will be sent for microbial cultures and analysis. Therapeutic airway suctioning was done and the bronchoscope was removed. No complications.
[2024-08-31] MEDS: SODIUM CHLORIDE 0.9% 1,000 ML IV SCH (13:22)
[2024-08-31 18:34] LABS: Glucose,Whole Blood 128 mg/dL (70-110)
[2024-08-31] MEDS: SODIUM CHLORIDE 0.9% 500 ML 500 ML IV ONE (23:39)
[2024-08-31 23:59] LABS: Glucose,Whole Blood 126 mg/dL (70-110)
[2024-09-01 05:10] LABS: ABG Base Excess 20.3 mmol/L; ABG Oxygen Saturation 96.3 % (94-97); ABG PCO2 65 mmHg (35-45); ABG PH 7.47 (7.35-7.45); ABG PO2 76 mmHg (83-108); ABG TCO2 49 mmol/L (19-24)
[2024-09-01 05:14] LABS: Basophils % (A) 0 %; Eosinophils % (A) 0 %; HCT 33.8 % (39.0-53.0); HGB 10.7 gm/dL (13.0-17.5); Hypochromasia Moderate; Lymphocytes # (A) 0.6 k/uL (1.0-4.8); Lymphocytes % (A) 6 %; MCH 28.9 pg (25.0-35.0); MCHC 31.6 g/dL (31.0-37.0); MCV 91.6 fL (80.0-100.0); Mean Platelet Volume 7.3; Monocytes # (A) 0.5 k/uL (0-1.0); Monocytes % (A) 6 %; Neutrophils # (A) 7.7 k/uL (1.3-7.7); Neutrophils % (A) 86 %; Platelet Count 254 k/uL (150-450); RBC 3.69 m/uL (4.30-5.90)
[2024-09-01 05:16] LABS: ABG HCO3 47 mmol/L (21-25); Allen Test Performed? no
[2024-09-01 05:16] LABS: Glucose,Whole Blood 122 mg/dL (70-110)
[2024-09-01 05:38] LABS: African American GFR (CKD) >90 (>60 ml/min/1.73 sqM); Blood Urea Nitrogen 25 mg/dL (9-20); Calcium 8.7 mg/dL (8.4-10.2); Chloride 92 mmol/L (98-107); Glucose 125 mg/dL (74-99); Non-African American GFR(CKD) >90 (>60 ml/min/1.73 sqM); Potassium 3.9 mmol/L (3.5-5.1); Sodium 139 mmol/L (137-145)
[2024-09-01 05:45] LABS: Anion Gap 4 mmol/L
[2024-09-01 06:10] LABS: Carbon Dioxide 43 mmol/L (22-30)
[2024-09-01] MEDS: POTASSIUM BICARBONATE/CIT AC 20 MEQ TABLET.EFF NG-TUBE SCH (06:53)
--- NOTE | 2024-09-01 08:21 | XR ---
EXAMINATION TYPE: XR chest 1V portable DATE OF EXAM: 09/01/2024 5:27 AM COMPARISON: Multiple radiographs, with the most recent on 08/31/2024 TECHNIQUE: XR chest 1V portable Portable AP radiograph of the chest. CLINICAL INDICATION:Male, 54 years old with history of resp failure; FINDINGS: Lungs/Pleura: No pneumothorax. Trace bilateral pleural effusions. Slightly improved diffuse multifoca l patchy airspace opacities. Mostly improved in the upper lungs bilaterally. Pulmonary vascularity: Unremarkable. Heart/mediastinum: Cardiomediastinal silhouette is unremarkable. Musculoskeletal: Bilateral lower rib fractures with callus formation. Other findings: Similar calcifications and/or suture material within the right upper quadrant. Lines/Tubes: Endotracheal tube with distal tip 4.3 cm above the juan c Nasogastric tube with its distal tip and side-port projecting under the diaphragm and projecting over the gastric lumen. Left internal jugular central venous catheter with distal tip at the superior cavoatrial junction. Loop recorder overlies the left chest. IMPRESSION: 1. Slightly improved multifocal airspace opacities concerning for pneumonia. 2. Trace bilateral pleural effusions. 3. Stable support lines and tubes. [facility], , 09/01/2024 8:18 AM
[2024-09-01] MEDS: FUROSEMIDE 10 MG/ML 4 ML VIAL IV STA (10:23)
--- NOTE | 2024-09-01 12:30 | P.PN ---
Subjective Progress Note Date: 09/01/24 This is a pleasant 53 years old male with past medical history of multiple medical problems as below including COPD He was transferred from outside facility already intubated. He is on mechanical ventilation Patient was transferred from [facility]. He presents there because of respiratory distress for 2 days duration associated with dyspnea. He was hypoxic saturating in 70s on room air. In view of his history of COPD and CT of the chest without contrast showing diffuse bilateral airspace opacities with increased pleural thickening and fluid per report findings are suspicious for multifocal pneumonia. Patient was hypotensive and tachycardic. His ABG prior to transfer showing pH is low 7.18 and CO2 is elevated 136. Currently patient cannot provide information. His vitals look stable and afebrile CBC, LFTs are unremarkable as well as metabolic panel with BMP except for eleva anjelica carbon dioxide at 44. Troponin is negative Urine analysis suspicious for infection D-dimer is negative at 0.56 pH here is 7.4 and CO2 is 70. Lactic acid is only 2.2 came down to 1.2. proBNP is 857 Chest x-ray showing persistent multiple airspace opacity with multiple right rib fracture 08/30 Patient still intubated and sedated on mechanical ventilation. FiO2 50% and PEEP of 8, tidal volume 450 mL His vitals looks very stable He was little agitated earlier with coughing and shaking requiring one-time dose of Ativan 08/31 Patient is still intubated requiring mechanical ventilation Patient with no fever and vitals with stable blood pressure and heart rate since admission. WBC went up from 7.8-14.7 while he is on steroids. pH 7.4 and pCO2 is high 76. Sodium 140, potassium 3.2. Creatinine normal. Glucose controlled. Currently kept on IV Solu-Medrol and ceftriaxone and Zithromax Patient had CT of the chest showing no honeycombing but pulmonary edema superimposed on bacterial infection Eliquis pulmonary nodules throughout the lungs bilaterally mainly in the lower lung. 09/01. Patient seen and examined. Patient was extubated this morning, currently doing better on oxygen via nasal cannula. Patient is moving all extremities. Denies any chest pain. Denies any lightness dizziness. REVIEW OF SYSTEMS: Denies any chest pain. Denies any nausea or vomiting PHYSICAL EXAMINATION: GENERAL: The patient is alert HEENT: Pupils are round and equally reacting to light. EOMI. No scleral icterus. No conjunctival pallor. Normocephalic, atraumatic. No pharyngeal erythema. No thyromegaly. CARDIOVASCULAR: S1 and S2 present. No murmurs, rubs, or gallops. PULMONARY: Chest is clear to auscultation, no wheezing or crackles. ABDOMEN: Soft, nontender, nondistended, normoactive bowel sounds. No palpable organomegaly. MUSCULOSKELETAL: No joint swelling or deformity. EXTREMITIES: No cyanosis, clubbing, or pedal edema. NEUROLOGICAL: Moving all extremity SKIN: No rashes. Assessment and plan Acute hypoxic hypercapnic respiratory failure s/p intubation and mechanical ventilation Bilateral multifocal pneumonia Acute COPD exacerbation bilateral pulmonary nodules throughout both lungs more on the lower zones Possible acute urinary tract infection Multiple right-sided rib fracture Respiratory acidosis, acute Monitor vital signs Monitor CBC Monitor CMP Continue telemetry monitoring Follow-up on blood cultures and follow-up on sputum cultures Aggressive bronchopulmonary hygiene Continue oxygen supplementation Continue IV Rocephin, azithromycin Continue breathing treatments continue IV Solu-Medrol Patient underwent bronchoscopy with bronchial lavage yesterday Critical care following Labs and medication were reviewed.. Continue same treatment. Continue with symptomatic treatment. Resume home medication. Monitor labs and vitals. DVT and GI prophylaxis. Further recommendations as per clinical course of the patient Dictation was produced using [employer] dictation software. please excuse any grammatical, word or spelling errors. Objective - Vital Signs Vital signs: Vital Signs Temp 98.1 F 09/01/24 08:00 Pulse 69 09/01/24 09:10 Resp 14 09/01/24 08:00 BP 114/64 09/01/24 07:00 Pulse Ox 96 09/01/24 08:00 FiO2 40 09/01/24 08:44 Intake & Output 08/31/24 09/01/24 09/01/24 18:59 06:59 18:59 Intake Total 1538.774 7227 262 Output Total 380 560 70 Balance 434.532 7948 192 Weight 80.6 kg 82 kg Intake: IV 688 891 162 0.9 Pressure bag 78 66 12 0.9 kvo 160 Sodium Chloride 0.9% 1, 450 825 150 000 ml @ 75 mls/hr IV . [id number] [facility] Rx#:[id number] Intake, IV Titration 260.450 400 Amount fentaNYL (PF). 1,000 mcg 60.45 In Sodium Chloride 0.9% 80 ml @ 0.5 MCG/KG/HR 4. 03 mls/hr IV .Q24H [facility] Rx #:[id number] propofoL 1,000 mg In 200.000 400 Empty Bag 1 bag @ 15 MCG/ KG/MIN 15.867 mls/hr IV . Q6H19M [facility] Rx#:[id number] Tube Feeding 260 220 40 Other 60 120 60 Output: Urine 380 560 70 Other: Voiding Method Indwelling Catheter Indwelling Catheter ABP, PAP, CO, CI - Last Documented Arterial Blood Pressure 113/106 - Labs CBC & Chem 7: 09/01/24 05:00 09/01/24 05:00 Labs: Abnormal Lab Results - Last 24 Hours (Table) 08/31/24 08/31/24 08/31/24 Range/Units 12:12 18:32 23:58 RBC (4.30-5.90) m/uL Hgb (13.0-17.5) gm/dL Hct (39.0-53.0) % Lymphocytes # (1.0-4.8) k/uL ABG pH (7.35-7.45) ABG pCO2 (35-45) mmHg ABG pO2 (83-108) mmHg ABG HCO3 (21-25) mmol/L ABG Total CO2 (19-24) mmol/L Hemoglobin (13.0-17.5) gm/dL Chloride (98-107) mmol/L Carbon Dioxide (22-30) mmol/L BUN (9-20) mg/dL Creatinine (0.66-1.25) mg/dL Glucose (74-99) mg/dL POC Glucose (mg/dL) 133 H 128 H 126 H (70-110) mg/dL 09/01/24 09/01/24 09/01/24 Range/Units 05:00 05:00 05:08 RBC 3.69 L (4.30-5.90) m/uL Hgb 10.7 L (13.0-17.5) gm/dL Hct 33.8 L (39.0-53.0) % Lymphocytes # 0.6 L (1.0-4.8) k/uL ABG pH 7.47 H (7.35-7.45) ABG pCO2 65 H (35-45) mmHg ABG pO2 76 L (83-108) mmHg ABG HCO3 47 H* (21-25) mmol/L ABG Total CO2 49 H (19-24) mmol/L Hemoglobin 10.8 L (13.0-17.5) gm/dL Chloride 92 L (98-107) mmol/L Carbon Dioxide 43 H* (22-30) mmol/L BUN 25 H (9-20) mg/dL Creatinine 0.55 L (0.66-1.25) mg/dL Glucose 125 H (74-99) mg/dL POC Glucose (mg/dL) (70-110) mg/dL 09/01/24 Range/Units 05:15 RBC (4.30-5.90) m/uL Hgb (13.0-17.5) gm/dL Hct (39.0-53.0) % Lymphocytes # (1.0-4.8) k/uL ABG pH (7.35-7.45) ABG pCO2 (35-45) mmHg ABG pO2 (83-108) mmHg ABG HCO3 (21-25) mmol/L ABG Total CO2 (19-24) mmol/L Hemoglobin (13.0-17.5) gm/dL Chloride (98-107) mmol/L Carbon Dioxide (22-30) mmol/L BUN (9-20) mg/dL Creatinine (0.66-1.25) mg/dL Glucose (74-99) mg/dL POC Glucose (mg/dL) 122 H (70-110) mg/dL Microbiology - Last 24 Hours (Table) 08/29/24 14:21 Gram Stain - Preliminary Sputum Sputum Culture - Preliminary 08/29/24 11:53 Blood Culture - Preliminary Blood 08/31/24 11:00 Gram Stain - Preliminary Bronchial Washings - Right
[2024-09-01 12:38] LABS: Glucose,Whole Blood 95 mg/dL (70-110)
--- NOTE | 2024-09-01 16:33 | P.PN ---
Subjective Progress Note Date: 09/01/24 53-year-old male who was transferred down, by EMS, from an outside hospital, with respiratory failure. The patient apparently has a history of severe COPD, and the patient was intubated, at the outside hospital, after he failed BiPAP. Apparently his PaCO2 on blood gas was 137. The patient is seen today in the emergency department, trauma room 2. His vent settings include volume assist- control, rate 14, tidal volume 450, FiO2 50%, and PEEP of 5. The patient is getting propofol at 25 mcg/kg/min. He apparently has a history of COPD, and sleep apnea, and apparently is noncompliant with medications. No other history is available other than the fact that he has COPD and sleep apnea. Home medica tions apparently include Trelegy, saline nasal rinse, vitamins, metoprolol, updrafts, with ipratropium bromide and albuterol, Motrin, Flonase nasal spray, Flexeril, Lipitor, aspirin, amlodipine, albuterol inhaler, and Tylenol. Based on these medications it appears in addition to COPD, the patient has a history of gastroesophageal reflux disease, hyperlipidemia, and hypertension. Current laboratory data includes a white count 8.3, hemoglobin 13.2, hematocrit 40.2, and a platelet count 239,000. Blood gases show pO2 of 256, pCO2 of 70, and a pH of 7.44. Bicarbonate concentration on the blood gas was 47, on the electrolyte profile was 44. Sodium 139, potassium 3.9, chloride 87, CO2 44, BUN 19, and creatinine 0.79. Lactic acid was 2.2. Glucose 125. The rest of the CMP looks relatively normal. Viral screen was negative. Chest x-ray shows bilateral airspace opacities, which could be consistent with pneumonia. 08/30/2024, the patient is being seen for a follow-up. The patient has severe COPD and she was intubated in outside hospital after she failed BiPAP and the patient was transferred to us for further care. No further information is available regarding his baseline respiratory status. To my knowledge, the patient has been maintained on Trelegy Ellipta on an outpatient basis in addition to DuoNeb updrafts [id number]. At this point in time, the patient is intubated on the mechanical ventilator and the chest x-ray is showing diffuse bilateral pulmonary infiltrates. This is consistent with multifocal airspace disease. Underlying ILD cannot be completely ruled out. This morning, the patient is on propofol running at 50 mcg/kg/min. He is on assist-control mode of mechanical ventilation at rate of 20, tidal volume of 450, FiO2 40% with a PEEP of 5. Blood gas showed pH of 7.42 with a pCO2 of 71 and pO2 of 133. His peak airway pressure is at 31. Limited crackles and wheezing on today's examination. Cardiac rhythm is sinus. Remains on IV Rocephin and Zithromax. White cell count of 7.8 with him of 10.9 and a platelet count of 242. Sodium is at 138, potassium is at 3.3, bicarb is at 44, BUN is 19 with a creatinine of 0.74. The patient has a proBNP level of 857. Procalcitonin level is at 0.07. Lactic acid level is at 1.2. He is well sedated, calm and comfortable, maintained on wound bronchodilators, maintained on Solu-Medrol, maintained on L ovenox for DVT prophylaxis. On 08/31/2024, the patient is being seen for a follow-up. Patient remains intubated on mechanical ventilator. This morning, he is on propofol running at 40 mcg/kg/min and is also on fentanyl drip at 0.5 mcg/kg/h. Calm and comfortable and synchronous on mechanical ventilator. He remains on assist- control mode of mechanical ventilation at the rate of 14, tidal volume of 450, FiO2 of 40% with a PEEP of 5. Blood gas showed a pH of 7.42 with a pCO2 of 76 and pO2 68. IV fluids are KVO and the patient is eating vital high-protein at rate of 20 cc an hour. Afebrile. Hemodynamically stable. CAT scan of the chest was completed yesterday and it shows diffuse emphysematous changes bilaterally. No evidence of any fibrosis although there is some interlobular septal thickening with scattered pulmonary nodularity specially along the pleural lining. There is also subcentimeter pulmonary nodules and consolidation in the right lung base with a small right-sided pleural effusion. He is having mild to moderate amount of secretions. Based on that, I performed a bro nchoscopy on this patient and a total of 20 cc of purulent respiratory secretions were suctioned out and following that the bronchoalveolar lavage of the right lower lobe was done. The white cell count is 14.7 with a hemoglobin 10.6 and a platelet count of 262. Sodium is at 140, potassium is at 3.2, bicarb is at 46 and rest of the electrolytes are essentially within normal limits. The procalcitonin level was at 0.07 the time of admission. On 09/01/2024, the patient is being seen for a follow-up. This morning, the patient is off propofol and the patient is awake and alert and communicating. Following simple commands. He seems to be quite comfortable. He is still on the mechanical ventilator assist-control mode rate of 14, tidal volume of 450, FiO2 50% with a PEEP of 5. Blood gas showed a pH of 7.47 with pCO2 65 and pO2 of 76. Chest x-ray findings are essentially unchanged and the patient has diffuse interstitial changes bilaterally which remains essentially unchanged and there is improved multifocal opacities compared to yesterday's chest x-ray. There is also trace bilateral pleural effusions. The patient is on normal citrate of 75 cc an hour. Fluid balance is positive and over the past 24 hours, the patient has had a positive fluid balance of 1.9 L. He is receiving vital HP at rate of 20 cc an hour. Peak y and static airway pressures are not elevated. The white cell count is at 9 with a heme of 10.7 and a platelet count of 254. Sodium is at 139, BUN 25 with a creatinine of 0.55 and a potassium level is at 3.9. Bronchoscopy endobronchial lavage was done and awaiting final cultures. The sputum sample that was collected at 08/29/2024 showing stenotrophomonas and E. coli and corynebacterium. The bronchial lavage collected on 08/31/2024 showing presumptive staph aureus. The patient remains on IV Rocephin for now. Objective - Vital Signs Vital signs: Vital Signs Temp 98.1 F 09/01/24 08:00 Pulse 77 09/01/24 10:00 Resp 19 09/01/24 10:00 BP 99/59 09/01/24 10:00 Pulse Ox 96 09/01/24 10:00 FiO2 40 09/01/24 10:00 Intake & Output 08/31/24 09/01/24 09/01/24 18:59 06:59 18:59 Intake Total 7994.091 9030 393 Output Total 380 560 170 Balance 178.160 0000 223 Weight 80.6 kg 82 kg Intake: IV 688 891 243 0.9 Pressure bag 78 66 18 0.9 kvo 160 Sodium Chloride 0.9% 1, 450 825 225 000 ml @ 75 mls/hr IV . [id number] [facility] Rx#:[id number] Intake, IV Titration 260.450 400 Amount fentaNYL (PF). 1,000 mcg 60.45 In Sodium Chloride 0.9% 80 ml @ 0.5 MCG/KG/HR 4. 03 mls/hr IV .Q24H [facility] Rx #:[id number] propofoL 1,000 mg In 200.000 400 Empty Bag 1 bag @ 15 MCG/ KG/MIN 15.867 mls/hr IV . Q6H19M [facility] Rx#:[id number] Tube Feeding 260 220 60 Other 60 120 90 Output: Urine 380 560 170 Other: Voiding Method Indwelling Catheter Indwelling Catheter ABP, PAP, CO, CI - Last Documented Arterial Blood Pressure 80/64 - Exam The patient appeared well nourished and normally developed., Comfortable, intubated on mechanical ventilator. Orogastric endotracheal tube are both in place and the patient is awake while being off propofol and following simple commands. Head exam is unremarkable. No scleral icterus or corneal arcus noted. Neck is without jugular venous distension, thyromegaly, or carotid bruits. Carotid upstrokes are brisk bilaterally. Lungs are diminished bilaterally patient has bibasilar crackles along with scattered expiratory wheezes throughout the lung dickens bilaterally. Cardiac exam reveals the PMI to be normally sized and situated. Rhythm is regular. First and second heart sounds normal. No murmurs, rubs or gallops. Abdominal exam reveals normal bowel sounds, no masses, no organomegaly and no aortic enlargement. Extremities are nonedematous and both femoral and pedal pulses are normal. Examination of the skin revealed no evidence of significant rashes, suspicious appearing nevi or other concerning lesions. Neurologically, the patient awake and alert and following simple commands while being off propofol. - Labs CBC & Chem 7: 09/01/24 05:00 09/01/24 05:00 Labs: Abnormal Lab Results - Last 24 Hours (Table) 08/31/24 08/31/24 08/31/24 Range/Units 12:12 18:32 23:58 RBC (4.30-5.90) m/uL Hgb (13.0-17.5) gm/dL Hct (39.0-53.0) % Lymphocytes # (1.0-4.8) k/uL ABG pH (7.35-7.45) ABG pCO2 (35-45) mmHg ABG pO2 (83-108) mmHg ABG HCO3 (21-25) mmol/L ABG Total CO2 (19-24) mmol/L Hemoglobin (13.0-17.5) gm/dL Chloride (98-107) mmol/L Carbon Dioxide (22-30) mmol/L BUN (9-20) mg/dL Creatinine (0.66-1.25) mg/dL Glucose (74-99) mg/dL POC Glucose (mg/dL) 133 H 128 H 126 H (70-110) mg/dL 09/01/24 09/01/24 09/01/24 Range/Units 05:00 05:00 05:08 RBC 3.69 L (4.30-5.90) m/uL Hgb 10.7 L (13.0-17.5) gm/dL Hct 33.8 L (39.0-53.0) % Lymphocytes # 0.6 L (1.0-4.8) k/uL ABG pH 7.47 H (7.35-7.45) ABG pCO2 65 H (35-45) mmHg ABG pO2 76 L (83-108) mmHg ABG HCO3 47 H* (21-25) mmol/L ABG Total CO2 49 H (19-24) mmol/L Hemoglobin 10.8 L (13.0-17.5) gm/dL Chloride 92 L (98-107) mmol/L Carbon Dioxide 43 H* (22-30) mmol/L BUN 25 H (9-20) mg/dL Creatinine 0.55 L (0.66-1.25) mg/dL Glucose 125 H (74-99) mg/dL POC Glucose (mg/dL) (70-110) mg/dL 09/01/24 Range/Units 05:15 RBC (4.30-5.90) m/uL Hgb (13.0-17.5) gm/dL Hct (39.0-53.0) % Lymphocytes # (1.0-4.8) k/uL ABG pH (7.35-7.45) ABG pCO2 (35-45) mmHg ABG pO2 (83-108) mmHg ABG HCO3 (21-25) mmol/L ABG Total CO2 (19-24) mmol/L Hemoglobin (13.0-17.5) gm/dL Chloride (98-107) mmol/L Carbon Dioxide (22-30) mmol/L BUN (9-20) mg/dL Creatinine (0.66-1.25) mg/dL Glucose (74-99) mg/dL POC Glucose (mg/dL) 122 H (70-110) mg/dL Microbiology - Last 24 Hours (Table) 08/29/24 14:21 Gram Stain - Preliminary Sputum Sputum Culture - Preliminary 08/29/24 11:53 Blood Culture - Preliminary Blood 08/31/24 11:00 Gram Stain - Preliminary Bronchial Washings - Right Assessment and Plan Plan: Acute hypoxemic respiratory failure, secondary to COPD exacerbation. Remains intubated on mechanical ventilator. Chest x-ray findings are stable. Bronchoscopy endobronchial lavage was done and the patient remains on IV Rocephin. Less bronchospastic and wheezy. The peak and the static airway pressures are improved and the patient remains on a combination of bronchod ilators and steroids. Right lower lobe consolidation/pneumonia. Procalcitonin level is within normal limits. Respiratory secretions are abundant and the patient underwent a bronchoscopy and therapeutic airway suctioning and a bronchioloalveolar lavage of the right lower lobe. The sputum sample showed stenotrophomonas and E. coli and corynebacterium. The bronchoalveolar lavage collected on 08/31/2024 showing presumptive staph. Afebrile. Hemodynamically stable on no pressors. Acute on chronic hypoxic/hypercapnic respiratory failure, currently intubated on mechanical ventilator. The patient is acid-base status seems to be compensated at this point in time. Oxygenation is also stable. Chronic pleural nodularities and thickening in addition to old right-sided rib fractures. Advanced COPD, maintained on Trelegy Ellipta and DuoNeb updrafts on outpatient basis. Baseline pulmonary function test is not known. Hypertension Hyperlipidemia Obstructive sleep apnea Plan Check weaning parameters Switch this patient to a pressure support of 7 and a PEEP of 5 With possible extubate the patient today Will utilize BiPAP if needed especially overnight Continue bronchodilators with DuoNeb updrafts Continue IV Solu-Medrol Continue IV Rocephin and add Bactrim based on presence of stenotrophomonas in his sputum sample. This may also cover his presumptive Staph aureus. Bronchoscopy endobronchial lavage of the right lower lobe was done, awaiting final cultures and sensitivities CAT scan of the chest was noted Echo was noted and the patient has a preserved LV function, dilated RV due to chronic lung disease. Procalcitonin level is not elevated proBNP is mildly elevated Initiate enteral feeding for nutritional support Lovenox for DVT prophylaxis possible extubation today Condition is critical and the patient is currently intubated on mechanical ventilator. His evaluation was done in 45 minutes. Time with Patient: Greater than 30
[2024-09-01] MEDS: INSULIN ASPART (NovoLOG) 100 UNIT/ML VIAL SQ SCH (17:13)
[2024-09-01 17:51] LABS: Glucose,Whole Blood 169 mg/dL (70-110)
[2024-09-01 20:33] LABS: Glucose,Whole Blood 155 mg/dL (70-110)
[2024-09-01] MEDS: SULFAMETHOX-TMP 800-160MG 1 EACH TAB PO SCH (21:24)
[2024-09-02 06:12] LABS: Glucose,Whole Blood 113 mg/dL (70-110)
[2024-09-02] MEDS: FUROSEMIDE 40 MG TAB PO STA (07:43)
[2024-09-02] MEDS: POTASSIUM CHLORIDE 20 MEQ in WATER FOR INJECTION 1 100ML.BAG IVPB STA (07:44)
[2024-09-02 08:26] LABS: Basophils % (A) 0 %; Eosinophils % (A) 0 %; HCT 38.3 % (39.0-53.0); Hypochromasia Slight; Lymphocytes # (A) 0.7 k/uL (1.0-4.8); Lymphocytes % (A) 7 %; MCH 28.7 pg (25.0-35.0); MCHC 31.4 g/dL (31.0-37.0); MCV 91.5 fL (80.0-100.0); Mean Platelet Volume 7.6; Monocytes # (A) 0.4 k/uL (0-1.0); Monocytes % (A) 4 %; Neutrophils # (A) 8.5 k/uL (1.3-7.7); Neutrophils % (A) 88 %; Platelet Count 269 k/uL (150-450); RBC 4.19 m/uL (4.30-5.90); RDW 13.1 % (11.5-15.5); WBC 9.7 k/uL (3.8-10.6)
--- NOTE | 2024-09-02 08:34 | XR ---
EXAMINATION TYPE: XR chest 1V portable DATE OF EXAM: 09/02/2024 5:39 AM COMPARISON: Multiple radiographs, with the most recent on 09/01/2024 TECHNIQUE: XR chest 1V portable Portable AP radiograph of the chest. CLINICAL INDICATION:Male, 54 years old with history of pulmonary fibrosis/PNA/COPD; FINDINGS: Lungs/Pleura: No pneumothorax. Improvement in bilateral pleural effusions. Similar diffuse multifocal patchy airspace opacities. Pulmonary vascularity: Unremarkable. Heart/mediastinum: Cardiomediastinal silhouette is unremarkable. Musculoskeletal: Bilateral lower rib fractures with callus formation. Other findings: Similar calcifications and/or suture material within the right upper quadrant. Lines/Tubes: Interval removal of endotracheal and NG tubes. Left internal jugular central venous catheter with dis isma tip at the superior cavoatrial junction. Loop recorder overlies the left chest. IMPRESSION: 1. Similar multifocal airspace opacities with improvement in bilateral pleural effusions. 2. Interval removal of endotracheal and NG tube. Stable left internal jugular central venous catheter . [facility], , 09/02/2024 8:31 AM
[2024-09-02 08:37] LABS: African American GFR (CKD) >90 (>60 ml/min/1.73 sqM); Blood Urea Nitrogen 16 mg/dL (9-20); Calcium 8.4 mg/dL (8.4-10.2); Chloride 90 mmol/L (98-107); Glucose 146 mg/dL (74-99); Non-African American GFR(CKD) >90 (>60 ml/min/1.73 sqM); Potassium 3.8 mmol/L (3.5-5.1); Sodium 138 mmol/L (137-145)
[2024-09-02 08:43] LABS: Anion Gap 3 mmol/L
[2024-09-02 08:48] LABS: Carbon Dioxide 45 mmol/L (22-30)
[2024-09-02 11:18] LABS: Glucose,Whole Blood 123 mg/dL (70-110)
--- NOTE | 2024-09-02 11:45 | P.PN ---
Subjective Progress Note Date: 09/02/24 This is a pleasant 53 years old male with past medical history of multiple medical problems as below including COPD He was transferred from outside facility already intubated. He is on mechanical ventilation Patient was transferred from [facility]. He presents there because of respiratory distress for 2 days duration associated with dyspnea. He was hypoxic saturating in 70s on room air. In view of his history of COPD and CT of the chest without contrast showing diffuse bilateral airspace opacities with increased pleural thickening and fluid per report findings are suspicious for multifocal pneumonia. Patient was hypotensive and tachycardic. His ABG prior to transfer showing pH is low 7.18 and CO2 is elevated 136. Currently patient cannot provide information. His vitals look stable and afebrile CBC, LFTs are unremarkable as well as metabolic panel with BMP except for eleva anjelica carbon dioxide at 44. Troponin is negative Urine analysis suspicious for infection D-dimer is negative at 0.56 pH here is 7.4 and CO2 is 70. Lactic acid is only 2.2 came down to 1.2. proBNP is 857 Chest x-ray showing persistent multiple airspace opacity with multiple right rib fracture 08/30 Patient still intubated and sedated on mechanical ventilation. FiO2 50% and PEEP of 8, tidal volume 450 mL His vitals looks very stable He was little agitated earlier with coughing and shaking requiring one-time dose of Ativan 08/31 Patient is still intubated requiring mechanical ventilation Patient with no fever and vitals with stable blood pressure and heart rate since admission. WBC went up from 7.8-14.7 while he is on steroids. pH 7.4 and pCO2 is high 76. Sodium 140, potassium 3.2. Creatinine normal. Glucose controlled. Currently kept on IV Solu-Medrol and ceftriaxone and Zithromax Patient had CT of the chest showing no honeycombing but pulmonary edema superimposed on bacterial infection Eliquis pulmonary nodules throughout the lungs bilaterally mainly in the lower lung. 2. Patient seen and examined. Patient was extubated this morning, currently doing better on oxygen via nasal cannula. Patient is moving all extremities. Denies any chest pain. Denies any lightness dizziness. /. Patient seen and examined. Patient is currently sitting upright in the chair. Patient heart rate is slightly elevated. Patient denies any shortness of breath at rest. Patient states that he is anxious. Blood work done showed WBC 9.7, hemoglobin 12, sodium 130, potassium 3.8, carbon Licide 45, BUN 16, creatinine 0.65 REVIEW OF SYSTEMS: Denies any chest pain. Denies any nausea or vomiting Denies any lightheadedness or dizziness PHYSICAL EXAMINATION: GENERAL: The patient is alert HEENT: Pupils are round and equally reacting to light. EOMI. No scleral icterus. No conjunctival pallor. Normocephalic, atraumatic. No pharyngeal erythema. No thyromegaly. CARDIOVASCULAR: S1 and S2 present. No murmurs, rubs, or gallops. PULMONARYgood air entry bilaterally, coarse breath, no wheezing or crackles. ABDOMEN: Soft, nontender, nondistended, normoactive bowel sounds. No palpable organomegaly. MUSCULOSKELETAL: No joint swelling or deformity. EXTREMITIES: No cyanosis, clubbing, or pedal edema. NEUROLOGICAL: Moving all extremity SKIN: No rashes. Assessment and plan Acute hypoxic hypercapnic respiratory failure s/p intubation and mechanical ventilation Bilateral multifocal pneumonia Acute COPD exacerbation bilateral pulmonary nodules throughout both lungs more on the lower zones Possible acute urinary tract infection Multiple right-sided rib fracture Respiratory acidosis, acute Monitor vital signs Monitor CBC Monitor CMP Continue telemetry monitoring Follow-up on blood cultures and follow-up on sputum cultures Aggressive bronchopulmonary hygiene Continue oxygen supplementation Continue IV Rocephin, started on Bactrim Continue breathing treatments continue IV Solu-Medrol Patient underwent bronchoscopy with bronchial lavage on 08/31, bronchial washing growing MRSA Pulmonology following ID consulted Labs and medication were reviewed.. Continue same treatment. Continue with symptomatic treatment. Resume home medication. Monitor labs and vitals. DVT and GI prophylaxis. Further recommendations as per clinical course of the patient Dictation was produced using [employer] dictation software. please excuse any grammatical, word or spelling errors. Objective - Vital Signs Vital signs: Vital Signs Temp 97.2 F L 09/02/24 09:00 Pulse 95 09/02/24 09:55 Resp 31 H 09/02/24 09:00 BP 140/92 09/02/24 09:00 Pulse Ox 98 09/02/24 09:29 FiO2 40 09/01/24 10:20 Intake & Output 09/01/24 09/02/24 09/02/24 18:59 06:59 18:59 Intake Total 1728 1176 676 Output Total 2485 875 485 Balance -757 301 191 Weight 79.9 kg Intake: IV 948 936 156 0.9 Pressure bag 48 36 6 Sodium Chloride 0.9% 1, 900 900 150 000 ml @ 75 mls/hr IV . [id number] [facility] Rx#:[id number] Intake, IV Titration 100 Amount propofoL 1,000 mg In 100 Empty Bag 1 bag @ 15 MCG/ KG/MIN 15.867 mls/hr IV . Q6H19M [facility] Rx#:[id number] Oral 480 240 520 Tube Feeding 80 Other 120 Output: Urine 2485 875 485 Other: Voiding Method Indwelling Catheter Indwelling Catheter Indwelling Catheter # Bowel Movements 1 1 ABP, PAP, CO, CI - Last Documented Arterial Blood Pressure 92/74 - Labs CBC & Chem 7: 09/02/24 08:12 09/02/24 08:12 Labs: Abnormal Lab Results - Last 24 Hours (Table) 09/01/24 09/01/24 09/02/24 Range/Units 17:50 20:31 06:11 RBC (4.30-5.90) m/uL Hgb (13.0-17.5) gm/dL Hct (39.0-53.0) % Neutrophils # (1.3-7.7) k/uL Lymphocytes # (1.0-4.8) k/uL Chloride (98-107) mmol/L Carbon Dioxide (22-30) mmol/L Creatinine (0.66-1.25) mg/dL Glucose (74-99) mg/dL POC Glucose (mg/dL) 169 H 155 H 113 H (70-110) mg/dL 09/02/24 09/02/24 09/02/24 Range/Units 08:12 08:12 11:15 RBC 4.19 L (4.30-5.90) m/uL Hgb 12.0 L (13.0-17.5) gm/dL Hct 38.3 L (39.0-53.0) % Neutrophils # 8.5 H (1.3-7.7) k/uL Lymphocytes # 0.7 L (1.0-4.8) k/uL Chloride 90 L (98-107) mmol/L Carbon Dioxide 45 H* (22-30) mmol/L Creatinine 0.65 L (0.66-1.25) mg/dL Glucose 146 H (74-99) mg/dL POC Glucose (mg/dL) 123 H (70-110) mg/dL Microbiology - Last 24 Hours (Table) 08/31/24 11:00 Gram Stain - Preliminary Bronchial Washings - Right Bronchial Washings Culture - Preliminary Methicillin resist S. aureus 08/29/24 11:53 Blood Culture - Preliminary Blood 08/29/24 14:21 Gram Stain - Final Sputum Sputum Culture - Final Stenotrophomonas maltophilia Escherichia coli Corynebacterium striatum group 08/31/24 11:00 Acid Fast Bacilli Smear - Preliminary Bronchial Washings - Right
[2024-09-02] MEDS ORDERED: VANCOMYCIN IV PER PHARMACY 1 EACH MISC MISCELLANE PRN (12:39)
[2024-09-02] MEDS: VANCOMYCIN 1,500 MG in SODIUM CHLORIDE 0.9% 500 ML 500 ML IVPB ONE (13:51)
--- NOTE | 2024-09-02 16:46 | P.PN ---
Subjective Progress Note Date: 09/02/24 53-year-old male who was transferred down, by EMS, from an outside hospital, with respiratory failure. The patient apparently has a history of severe COPD, and the patient was intubated, at the outside hospital, after he failed BiPAP. Apparently his PaCO2 on blood gas was 137. The patient is seen today in the emergency department, trauma room 2. His vent settings include volume assist- control, rate 14, tidal volume 450, FiO2 50%, and PEEP of 5. The patient is getting propofol at 25 mcg/kg/min. He apparently has a history of COPD, and sleep apnea, and apparently is noncompliant with medications. No other history is available other than the fact that he has COPD and sleep apnea. Home medica tions apparently include Trelegy, saline nasal rinse, vitamins, metoprolol, updrafts, with ipratropium bromide and albuterol, Motrin, Flonase nasal spray, Flexeril, Lipitor, aspirin, amlodipine, albuterol inhaler, and Tylenol. Based on these medications it appears in addition to COPD, the patient has a history of gastroesophageal reflux disease, hyperlipidemia, and hypertension. Current laboratory data includes a white count 8.3, hemoglobin 13.2, hematocrit 40.2, and a platelet count 239,000. Blood gases show pO2 of 256, pCO2 of 70, and a pH of 7.44. Bicarbonate concentration on the blood gas was 47, on the electrolyte profile was 44. Sodium 139, potassium 3.9, chloride 87, CO2 44, BUN 19, and creatinine 0.79. Lactic acid was 2.2. Glucose 125. The rest of the CMP looks relatively normal. Viral screen was negative. Chest x-ray shows bilateral airspace opacities, which could be consistent with pneumonia. 08/30/2024, the patient is being seen for a follow-up. The patient has severe COPD and she was intubated in outside hospital after she failed BiPAP and the patient was transferred to us for further care. No further information is available regarding his baseline respiratory status. To my knowledge, the patient has been maintained on Trelegy Ellipta on an outpatient basis in addition to DuoNeb updrafts [id number]. At this point in time, the patient is intubated on the mechanical ventilator and the chest x-ray is showing diffuse bilateral pulmonary infiltrates. This is consistent with multifocal airspace disease. Underlying ILD cannot be completely ruled out. This morning, the patient is on propofol running at 50 mcg/kg/min. He is on assist-control mode of mechanical ventilation at rate of 20, tidal volume of 450, FiO2 40% with a PEEP of 5. Blood gas showed pH of 7.42 with a pCO2 of 71 and pO2 of 133. His peak airway pressure is at 31. Limited crackles and wheezing on today's examination. Cardiac rhythm is sinus. Remains on IV Rocephin and Zithromax. White cell count of 7.8 with him of 10.9 and a platelet count of 242. Sodium is at 138, potassium is at 3.3, bicarb is at 44, BUN is 19 with a creatinine of 0.74. The patient has a proBNP level of 857. Procalcitonin level is at 0.07. Lactic acid level is at 1.2. He is well sedated, calm and comfortable, maintained on wound bronchodilators, maintained on Solu-Medrol, maintained on L ovenox for DVT prophylaxis. On 08/31/2024, the patient is being seen for a follow-up. Patient remains intubated on mechanical ventilator. This morning, he is on propofol running at 40 mcg/kg/min and is also on fentanyl drip at 0.5 mcg/kg/h. Calm and comfortable and synchronous on mechanical ventilator. He remains on assist- control mode of mechanical ventilation at the rate of 14, tidal volume of 450, FiO2 of 40% with a PEEP of 5. Blood gas showed a pH of 7.42 with a pCO2 of 76 and pO2 68. IV fluids are KVO and the patient is eating vital high-protein at rate of 20 cc an hour. Afebrile. Hemodynamically stable. CAT scan of the chest was completed yesterday and it shows diffuse emphysematous changes bilaterally. No evidence of any fibrosis although there is some interlobular septal thickening with scattered pulmonary nodularity specially along the pleural lining. There is also subcentimeter pulmonary nodules and consolidation in the right lung base with a small right-sided pleural effusion. He is having mild to moderate amount of secretions. Based on that, I performed a bro nchoscopy on this patient and a total of 20 cc of purulent respiratory secretions were suctioned out and following that the bronchoalveolar lavage of the right lower lobe was done. The white cell count is 14.7 with a hemoglobin 10.6 and a platelet count of 262. Sodium is at 140, potassium is at 3.2, bicarb is at 46 and rest of the electrolytes are essentially within normal limits. The procalcitonin level was at 0.07 the time of admission. On 09/01/2024, the patient is being seen for a follow-up. This morning, the patient is off propofol and the patient is awake and alert and communicating. Following simple commands. He seems to be quite comfortable. He is still on the mechanical ventilator assist-control mode rate of 14, tidal volume of 450, FiO2 50% with a PEEP of 5. Blood gas showed a pH of 7.47 with pCO2 65 and pO2 of 76. Chest x-ray findings are essentially unchanged and the patient has diffuse interstitial changes bilaterally which remains essentially unchanged and there is improved multifocal opacities compared to yesterday's chest x-ray. There is also trace bilateral pleural effusions. The patient is on normal citrate of 75 cc an hour. Fluid balance is positive and over the past 24 hours, the patient has had a positive fluid balance of 1.9 L. He is receiving vital HP at rate of 20 cc an hour. Peak y and static airway pressures are not elevated. The white cell count is at 9 with a heme of 10.7 and a platelet count of 254. Sodium is at 139, BUN 25 with a creatinine of 0.55 and a potassium level is at 3.9. Bronchoscopy endobronchial lavage was done and awaiting final cultures. The sputum sample that was collected at 08/29/2024 showing stenotrophomonas and E. coli and corynebacterium. The bronchial lavage collected on 08/31/2024 showing presumptive staph aureus. The patient remains on IV Rocephin for now. On 09/02/2024, the patient is awake and alert and the patient is currently on 2 L of oxygen by nasal cannula. The patient was extubated on 09/01/2024 without any complications. Noted his sputum analysis showed stenotrophomonas and E. coli an d Corynebacterium and the bronchoalveolar lavage showed MRSA. The patient is currently on Bactrim. Vancomycin was also added. Doing well. No specific complaints. No significant respiratory secretions. Remains on bronchodilators. Remains on Lovenox for DVT prophylaxis. Remains on IV Solu-Medrol. Blood work from today shows a white cell count of 9.7, hemoglobin 12 and a platelet count of 269. Sodium is at 138, potassium is at 3.8, bicarb is at 45 with a BUN of 16 and a creatinine of 0.6. Awake and alert and communicating. Tolerating diet. Objective - Vital Signs Vital signs: Vital Signs Temp 97.2 F L 09/02/24 09:00 Pulse 96 09/02/24 09:27 Resp 31 H 09/02/24 09:00 BP 140/92 09/02/24 09:00 Pulse Ox 98 09/02/24 09:29 FiO2 40 09/01/24 10:20 Intake & Output 09/01/24 09/02/24 09/02/24 18:59 06:59 18:59 Intake Total 1728 1176 78 Output Total 2485 875 75 Balance -757 301 3 Weight 79.9 kg Intake: IV 948 936 78 0.9 Pressure bag 48 36 3 Sodium Chloride 0.9% 1, 900 900 75 000 ml @ 75 mls/hr IV . [id number] [facility] Rx#:[id number] Intake, IV Titration 100 Amount propofoL 1,000 mg In 100 Empty Bag 1 bag @ 15 MCG/ KG/MIN 15.867 mls/hr IV . Q6H19M [facility] Rx#:[id number] Oral 480 240 Tube Feeding 80 Other 120 Output: Urine 2485 875 75 Other: Voiding Method Indwelling Catheter Indwelling Catheter # Bowel Movements 1 ABP, PAP, CO, CI - Last Documented Arterial Blood Pressure 92/74 - Exam The patient appeared well nourished and normally developed., Extubated and the patient is currently on 2 L of O2 nasal cannula Head exam is unremarkable. No scleral icterus or corneal arcus noted. Neck is without jugular venous distension, thyromegaly, or carotid bruits. Carotid upstrokes are brisk bilaterally. Lungs are diminished bilaterally patient has bibasilar crackles along with scattered expiratory wheezes throughout the lung dickens bilaterally. Cardiac exam reveals the PMI to be normally sized and situated. Rhythm is regular. First and second heart sounds normal. No murmurs, rubs or gallops. Abdominal exam reveals normal bowel sounds, no masses, no organomegaly and no aortic enlargement. Extremities are nonedematous and both femoral and pedal pulses are normal. Examination of the skin revealed no evidence of significant rashes, suspicious appearing nevi or other concerning lesions. Neurologically, the patient is awake and alert and the patient does not have any focal neurological deficit. Cranial nerves are essentially intact. - Labs CBC & Chem 7: 09/02/24 08:12 09/02/24 08:12 Labs: Abnormal Lab Results - Last 24 Hours (Table) 09/01/24 09/01/24 09/02/24 Range/Units 17:50 20:31 06:11 RBC (4.30-5.90) m/uL Hgb (13.0-17.5) gm/dL Hct (39.0-53.0) % Neutrophils # (1.3-7.7) k/uL Lymphocytes # (1.0-4.8) k/uL Chloride (98-107) mmol/L Carbon Dioxide (22-30) mmol/L Creatinine (0.66-1.25) mg/dL Glucose (74-99) mg/dL POC Glucose (mg/dL) 169 H 155 H 113 H (70-110) mg/dL 09/02/24 09/02/24 Range/Units 08:12 08:12 RBC 4.19 L (4.30-5.90) m/uL Hgb 12.0 L (13.0-17.5) gm/dL Hct 38.3 L (39.0-53.0) % Neutrophils # 8.5 H (1.3-7.7) k/uL Lymphocytes # 0.7 L (1.0-4.8) k/uL Chloride 90 L (98-107) mmol/L Carbon Dioxide 45 H* (22-30) mmol/L Creatinine 0.65 L (0.66-1.25) mg/dL Glucose 146 H (74-99) mg/dL POC Glucose (mg/dL) (70-110) mg/dL Microbiology - Last 24 Hours (Table) 08/31/24 11:00 Gram Stain - Preliminary Bronchial Washings - Right Bronchial Washings Culture - Preliminary Methicillin resist S. aureus 08/29/24 11:53 Blood Culture - Preliminary Blood 08/29/24 14:21 Gram Stain - Final Sputum Sputum Culture - Final Stenotrophomonas maltophilia Escherichia coli Corynebacterium striatum group 08/31/24 11:00 Acid Fast Bacilli Smear - Preliminary Bronchial Washings - Right Assessment and Plan Plan: Acute hypoxemic respiratory failure, secondary to COPD exacerbation. Extubated on 09/01/2024. Sputum is positive, polymicrobial growth in the bronchial lavage showing MRSA. Right lower lobe consolidation/pneumonia. Procalcitonin level is within normal limits. Respiratory secretions are abundant and the patient underwent a bronchoscopy and therapeutic airway suctioning and a bronchioloalveolar lavage of the right lower lobe. The sputum sample showed stenotrophomonas and E. coli and corynebacterium. The bronchoalveolar lavage collected on 08/31/2024 showing MRSA. Afebrile. Hemodynamically stable on no pressors. The patient is currently on a combination of Bactrim and vancomycin. Acute on chronic hypoxic/hypercapnic respiratory failure, currently extubated on 09/01/2024 the patient is acid-base status seems to be compensated at this point in time. Oxygenation is also stable. The patient is currently on 2 L of oxygen by nasal cannula Chronic pleural nodularities and thickening in addition to old right-sided rib fractures. Advanced COPD, maintained on Trelegy Ellipta and DuoNeb updrafts on outpatient basis. Baseline pulmonary function test is not known. Hypertension Hyperlipidemia Obstructive sleep apnea Plan Remains extubated 2 L/min nasal cannula Continue bronchodilators with DuoNeb updrafts Continue IV Solu-Medrol Continue IV R vancomycin and add Bactrim based on presence of stenotrophomonas in his sputum sample. This may also cover MRSA CAT scan of the chest was noted Echo was noted and the patient has a preserved LV function, dilated RV due to chronic lung disease. Procalcitonin level is not elevated proBNP is mildly elevated Provide oral diet Lovenox for DVT prophylaxis Clinically stable Will transfer this patient out of the intensive care unit. His evaluation was done in 45 minutes. Time with Patient: Greater than 30
[2024-09-02 17:16] LABS: Glucose,Whole Blood 109 mg/dL (70-110)
[2024-09-02 19:37] LABS: Glucose,Whole Blood 138 mg/dL (70-110)
[2024-09-02] MEDS: ATORVASTATIN 40 MG TAB PO SCH (20:39)
[2024-09-02] MEDS: METOPROLOL TARTRATE 50 MG TAB PO SCH (20:39)
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
[2024-09-02] MEDS: VANCOMYCIN 1,250 MG in SODIUM CHLORIDE 0.9% 250 ML IVPB SCH (22:54)
[2024-09-03 06:09] LABS: Glucose,Whole Blood 117 mg/dL (70-110)
[2024-09-03] MEDS: ASPIRIN 325 MG TAB PO SCH (06:45)
[2024-09-03 07:45] LABS: African American GFR (CKD) >90 (>60 ml/min/1.73 sqM); Non-African American GFR(CKD) >90 (>60 ml/min/1.73 sqM)
[2024-09-03 11:11] LABS: Glucose,Whole Blood 120 mg/dL (70-110)
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
--- NOTE | 2024-09-03 13:18 | P.PN ---
Subjective Progress Note Date: 09/03/24 This is a pleasant 53 years old male with past medical history of multiple medical problems as below including COPD He was transferred from outside facility already intubated. He is on mechanical ventilation Patient was transferred from [facility]. He presents there because of respiratory distress for 2 days duration associated with dyspnea. He was hypoxic saturating in 70s on room air. In view of his history of COPD and CT of the chest without contrast showing diffuse bilateral airspace opacities with increased pleural thickening and fluid per report findings are suspicious for multifocal pneumonia. Patient was hypotensive and tachycardic. His ABG prior to transfer showing pH is low 7.18 and CO2 is elevated 136. Currently patient cannot provide information. His vitals look stable and afebrile CBC, LFTs are unremarkable as well as metabolic panel with BMP except for eleva anjelica carbon dioxide at 44. Troponin is negative Urine analysis suspicious for infection D-dimer is negative at 0.56 pH here is 7.4 and CO2 is 70. Lactic acid is only 2.2 came down to 1.2. proBNP is 857 Chest x-ray showing persistent multiple airspace opacity with multiple right rib fracture 08/30 Patient still intubated and sedated on mechanical ventilation. FiO2 50% and PEEP of 8, tidal volume 450 mL His vitals looks very stable He was little agitated earlier with coughing and shaking requiring one-time dose of Ativan 08/31 Patient is still intubated requiring mechanical ventilation Patient with no fever and vitals with stable blood pressure and heart rate since admission. WBC went up from 7.8-14.7 while he is on steroids. pH 7.4 and pCO2 is high 76. Sodium 140, potassium 3.2. Creatinine normal. Glucose controlled. Currently kept on IV Solu-Medrol and ceftriaxone and Zithromax Patient had CT of the chest showing no honeycombing but pulmonary edema superimposed on bacterial infection Eliquis pulmonary nodules throughout the lungs bilaterally mainly in the lower lung. 2. Patient seen and examined. Patient was extubated this morning, currently doing better on oxygen via nasal cannula. Patient is moving all extremities. Denies any chest pain. Denies any lightness dizziness. /. Patient seen and examined. Patient is currently sitting upright in the chair. Patient heart rate is slightly elevated. Patient denies any shortness of breath at rest. Patient states that he is anxious. Blood work done showed WBC 9.7, hemoglobin 12, sodium 130, potassium 3.8, carbon Licide 45, BUN 16, creatinine 0.65 09/03. Patient seen and examined. Patient states that he feels better. Still complain lethargic and weakness. Gets short of breath on exertion. Currently on 2 L of oxygen. Patient has some swelling of lower extremities. REVIEW OF SYSTEMS: Denies any chest pain. Denies any nausea or vomiting Denies any lightheadedness or dizziness PHYSICAL EXAMINATION: GENERAL: The patient is alert HEENT: Pupils are round and equally reacting to light. EOMI. No scleral icterus. No conjunctival pallor. Normocephalic, atraumatic. No pharyngeal erythema. No thyromegaly. CARDIOVASCULAR: S1 and S2 present. No murmurs, rubs, or gallops. PULMONARYgood air entry bilaterally, coarse breath, no wheezing or crackles. ABDOMEN: Soft, nontender, nondistended, normoactive bowel sounds. No palpable organomegaly. MUSCULOSKELETAL: No joint swelling or deformity. EXTREMITIES: No cyanosis, clubbing, or pedal edema. NEUROLOGICAL: Moving all extremity SKIN: No rashes. Assessment and plan Acute hypoxic hypercapnic respiratory failure s/p intubation and mechanical ventilation Bilateral multifocal pneumonia Acute COPD exacerbation bilateral pulmonary nodules throughout both lungs more on the lower zones Possible acute urinary tract infection Multiple right-sided rib fracture Respiratory acidosis, acute Monitor vital signs Monitor CBC Monitor CMP Continue telemetry monitoring Follow-up on blood cultures and follow-up on sputum cultures Aggressive bronchopulmonary hygiene Continue oxygen supplementation Antibiotics changed to Bactrim and pharmacy dose vancomycin Continue breathing treatments continue IV Solu-Medrol Patient underwent bronchoscopy with bronchial lavage on 08/31, bronchial washing growing MRSA Pulmonology following ID following Labs and medication were reviewed.. Continue same treatment. Continue with symptomatic treatment. Resume home medication. Monitor labs and vitals. DVT and GI prophylaxis. Further recommendations as per clinical course of the patient Dictation was produced using [employer] dictation software. please excuse any gr ammatical, word or spelling errors. Objective - Vital Signs Vital signs: Vital Signs Temp 96.9 F L 09/03/24 11:23 Pulse 88 09/03/24 12:31 Resp 20 09/03/24 11:23 BP 124/64 09/03/24 11:23 Pulse Ox 95 09/03/24 11:23 FiO2 40 09/01/24 10:20 Intake & Output 09/02/24 09/03/24 09/03/24 18:59 06:59 18:59 Intake Total 916 740 240 Output Total 485 1060 200 Balance 431 -320 40 Weight 79.9 kg 80 kg Intake: IV 156 20 0.9 Pressure bag 6 Invasive Line 4 20 Sodium Chloride 0.9% 1, 150 000 ml @ 75 mls/hr IV . [id number] [facility] Rx#:[id number] Oral 760 720 240 Output: Urine 485 1060 200 Other: Voiding Method Urinal Urinal # Voids 3 1 # Bowel Movements 1 1 ABP, PAP, CO, CI - Last Documented Arterial Blood Pressure 92/74 - Labs CBC & Chem 7: 09/02/24 08:12 09/03/24 06:39 Labs: Abnormal Lab Results - Last 24 Hours (Table) 09/02/24 09/03/24 09/03/24 Range/Units 19:35 06:07 06:39 Creatinine 0.59 L (0.66-1.25) mg/dL POC Glucose (mg/dL) 138 H 117 H (70-110) mg/dL 09/03/24 Range/Units 11:08 Creatinine (0.66-1.25) mg/dL POC Glucose (mg/dL) 120 H (70-110) mg/dL Microbiology - Last 24 Hours (Table) 08/31/24 11:00 Acid Fast Bacilli Smear - Preliminary Bronchial Washings - Right 08/31/24 11:00 Gram Stain - Final Bronchial Washings - Right Bronchial Washings Culture - Final Methicillin resist S. aureus Corynebacterium striatum group
--- NOTE | 2024-09-03 15:32 | P.PN ---
Subjective Progress Note Date: 09/03/24 53-year-old male who was transferred down, by EMS, from an outside hospital, with respiratory failure. The patient apparently has a history of severe COPD, and the patient was intubated, at the outside hospital, after he failed BiPAP. Apparently his PaCO2 on blood gas was 137. The patient is seen today in the emergency department, trauma room 2. His vent settings include volume assist- control, rate 14, tidal volume 450, FiO2 50%, and PEEP of 5. The patient is getting propofol at 25 mcg/kg/min. He apparently has a history of COPD, and sleep apnea, and apparently is noncompliant with medications. No other history is available other than the fact that he has COPD and sleep apnea. Home medica tions apparently include Trelegy, saline nasal rinse, vitamins, metoprolol, updrafts, with ipratropium bromide and albuterol, Motrin, Flonase nasal spray, Flexeril, Lipitor, aspirin, amlodipine, albuterol inhaler, and Tylenol. Based on these medications it appears in addition to COPD, the patient has a history of gastroesophageal reflux disease, hyperlipidemia, and hypertension. Current laboratory data includes a white count 8.3, hemoglobin 13.2, hematocrit 40.2, and a platelet count 239,000. Blood gases show pO2 of 256, pCO2 of 70, and a pH of 7.44. Bicarbonate concentration on the blood gas was 47, on the electrolyte profile was 44. Sodium 139, potassium 3.9, chloride 87, CO2 44, BUN 19, and creatinine 0.79. Lactic acid was 2.2. Glucose 125. The rest of the CMP looks relatively normal. Viral screen was negative. Chest x-ray shows bilateral airspace opacities, which could be consistent with pneumonia. 08/30/2024, the patient is being seen for a follow-up. The patient has severe COPD and she was intubated in outside hospital after she failed BiPAP and the patient was transferred to us for further care. No further information is available regarding his baseline respiratory status. To my knowledge, the patient has been maintained on Trelegy Ellipta on an outpatient basis in addition to DuoNeb updrafts [id number]. At this point in time, the patient is intubated on the mechanical ventilator and the chest x-ray is showing diffuse bilateral pulmonary infiltrates. This is consistent with multifocal airspace disease. Underlying ILD cannot be completely ruled out. This morning, the patient is on propofol running at 50 mcg/kg/min. He is on assist-control mode of mechanical ventilation at rate of 20, tidal volume of 450, FiO2 40% with a PEEP of 5. Blood gas showed pH of 7.42 with a pCO2 of 71 and pO2 of 133. His peak airway pressure is at 31. Limited crackles and wheezing on today's examination. Cardiac rhythm is sinus. Remains on IV Rocephin and Zithromax. White cell count of 7.8 with him of 10.9 and a platelet count of 242. Sodium is at 138, potassium is at 3.3, bicarb is at 44, BUN is 19 with a creatinine of 0.74. The patient has a proBNP level of 857. Procalcitonin level is at 0.07. Lactic acid level is at 1.2. He is well sedated, calm and comfortable, maintained on wound bronchodilators, maintained on Solu-Medrol, maintained on L ovenox for DVT prophylaxis. On 08/31/2024, the patient is being seen for a follow-up. Patient remains intubated on mechanical ventilator. This morning, he is on propofol running at 40 mcg/kg/min and is also on fentanyl drip at 0.5 mcg/kg/h. Calm and comfortable and synchronous on mechanical ventilator. He remains on assist- control mode of mechanical ventilation at the rate of 14, tidal volume of 450, FiO2 of 40% with a PEEP of 5. Blood gas showed a pH of 7.42 with a pCO2 of 76 and pO2 68. IV fluids are KVO and the patient is eating vital high-protein at rate of 20 cc an hour. Afebrile. Hemodynamically stable. CAT scan of the chest was completed yesterday and it shows diffuse emphysematous changes bilaterally. No evidence of any fibrosis although there is some interlobular septal thickening with scattered pulmonary nodularity specially along the pleural lining. There is also subcentimeter pulmonary nodules and consolidation in the right lung base with a small right-sided pleural effusion. He is having mild to moderate amount of secretions. Based on that, I performed a bro nchoscopy on this patient and a total of 20 cc of purulent respiratory secretions were suctioned out and following that the bronchoalveolar lavage of the right lower lobe was done. The white cell count is 14.7 with a hemoglobin 10.6 and a platelet count of 262. Sodium is at 140, potassium is at 3.2, bicarb is at 46 and rest of the electrolytes are essentially within normal limits. The procalcitonin level was at 0.07 the time of admission. On 09/01/2024, the patient is being seen for a follow-up. This morning, the patient is off propofol and the patient is awake and alert and communicating. Following simple commands. He seems to be quite comfortable. He is still on the mechanical ventilator assist-control mode rate of 14, tidal volume of 450, FiO2 50% with a PEEP of 5. Blood gas showed a pH of 7.47 with pCO2 65 and pO2 of 76. Chest x-ray findings are essentially unchanged and the patient has diffuse interstitial changes bilaterally which remains essentially unchanged and there is improved multifocal opacities compared to yesterday's chest x-ray. There is also trace bilateral pleural effusions. The patient is on normal citrate of 75 cc an hour. Fluid balance is positive and over the past 24 hours, the patient has had a positive fluid balance of 1.9 L. He is receiving vital HP at rate of 20 cc an hour. Peak y and static airway pressures are not elevated. The white cell count is at 9 with a heme of 10.7 and a platelet count of 254. Sodium is at 139, BUN 25 with a creatinine of 0.55 and a potassium level is at 3.9. Bronchoscopy endobronchial lavage was done and awaiting final cultures. The sputum sample that was collected at 08/29/2024 showing stenotrophomonas and E. coli and corynebacterium. The bronchial lavage collected on 08/31/2024 showing presumptive staph aureus. The patient remains on IV Rocephin for now. On 09/02/2024, the patient is awake and alert and the patient is currently on 2 L of oxygen by nasal cannula. The patient was extubated on 09/01/2024 without any complications. Noted his sputum analysis showed stenotrophomonas and E. coli an d Corynebacterium and the bronchoalveolar lavage showed MRSA. The patient is currently on Bactrim. Vancomycin was also added. Doing well. No specific complaints. No significant respiratory secretions. Remains on bronchodilators. Remains on Lovenox for DVT prophylaxis. Remains on IV Solu-Medrol. Blood work from today shows a white cell count of 9.7, hemoglobin 12 and a platelet count of 269. Sodium is at 138, potassium is at 3.8, bicarb is at 45 with a BUN of 16 and a creatinine of 0.6. Awake and alert and communicating. Tolerating diet. On 09/03/2024, the patient is being seen for a follow-up. The patient is doing well. Calm and comfortable. No respite distress. Transferred out of the intensive care unit yesterday. He has MRSA in his BAL and stenotrophomonas in the sputum and the patient is currently on a combination of Bactrim and vancomycin. Remains on bronchodilators. Remains on steroids. Remains on oxygen and the patient is currently on 2 L nasal cannula with a pulse ox of 95%. Labs from yesterday were noted. No new labs are available from today. No altered mentation. No chest pain. Tolerating diet and hemodynamically stable. Objective - Vital Signs Vital signs: Vital Signs Temp 96.9 F L 09/03/24 11:23 Pulse 80 09/03/24 12:24 Resp 20 09/03/24 11:23 BP 124/64 09/03/24 11:23 Pulse Ox 95 09/03/24 11:23 FiO2 40 09/01/24 10:20 Intake & Output 09/02/24 09/03/24 09/03/24 18:59 06:59 18:59 Intake Total 916 740 240 Output Total 485 1060 200 Balance 431 -320 40 Weight 79.9 kg 80 kg Intake: IV 156 20 0.9 Pressure bag 6 Invasive Line 4 20 Sodium Chloride 0.9% 1, 150 000 ml @ 75 mls/hr IV . [id number] [facility] Rx#:[id number] Oral 760 720 240 Output: Urine 485 1060 200 Other: Voiding Method Urinal Urinal # Voids 3 1 # Bowel Movements 1 1 ABP, PAP, CO, CI - Last Documented Arterial Blood Pressure 92/74 - Exam The patient appeared well nourished and normally developed., Extubated and the patient is currently on 2 L of O2 nasal cannula Head exam is unremarkable. No scleral icterus or corneal arcus noted. Neck is without jugular venous distension, thyromegaly, or carotid bruits. Carotid upstrokes are brisk bilaterally. Lungs are diminished bilaterally patient has bibasilar crackles along with scattered expiratory wheezes throughout the lung dickens bilaterally. Cardiac exam reveals the PMI to be normally sized and situated. Rhythm is regular. First and second heart sounds normal. No murmurs, rubs or gallops. Abdominal exam reveals normal bowel sounds, no masses, no organomegaly and no aortic enlargement. Extremities are nonedematous and both femoral and pedal pulses are normal. Examination of the skin revealed no evidence of significant rashes, suspicious appearing nevi or other concerning lesions. Neurologically, the patient is awake and alert and the patient does not have any focal neurological deficit. Cranial nerves are essentially intact. - Labs CBC & Chem 7: 09/02/24 08:12 09/03/24 06:39 Labs: Abnormal Lab Results - Last 24 Hours (Table) 09/02/24 09/03/24 09/03/24 Range/Units 19:35 06:07 06:39 Creatinine 0.59 L (0.66-1.25) mg/dL POC Glucose (mg/dL) 138 H 117 H (70-110) mg/dL 09/03/24 Range/Units 11:08 Creatinine (0.66-1.25) mg/dL POC Glucose (mg/dL) 120 H (70-110) mg/dL Microbiology - Last 24 Hours (Table) 08/31/24 11:00 Acid Fast Bacilli Smear - Preliminary Bronchial Washings - Right 08/31/24 11:00 Gram Stain - Final Bronchial Washings - Right Bronchial Washings Culture - Final Methicillin resist S. aureus Corynebacterium striatum group Assessment and Plan Plan: Acute hypoxemic respiratory failure, secondary to COPD exacerbation. Extubated on 09/01/2024. Sputum is positive, polymicrobial growth in the bronchial lavage showing MRSA. The sputum sample also showed stenotrophomonas and the patient is currently on a combination of vancomycin and Bactrim. Patient is currently on 2 L of oxygen by nasal cannula. Right lower lobe consolidation/pneumonia. Procalcitonin level is within normal limits. Respiratory secretions are abundant and the patient underwent a bronchoscopy and therapeutic airway suctioning and a bronchioloalveolar lavage of the right lower lobe. The sputum sample showed stenotrophomonas and E. coli and corynebacterium. The bronchoalveolar lavage collected on 08/31/2024 showing MRSA. Afebrile. Hemodynamically stable on no pressors. The patient is currently on a combination of Bactrim and vancomycin. Acute on chronic hypoxic/hypercapnic respiratory failure, currently extubated on 09/01/2024 the patient is acid-base status seems to be compensated at this point in time. Oxygenation is also stable. The patient is currently on 2 L of oxygen by nasal cannula Chronic pleural nodularities and thickening in addition to old right-sided rib fractures. Advanced COPD, maintained on Trelegy Ellipta and DuoNeb updrafts on outpatient basis. Baseline pulmonary function test is not known. Hypertension Hyperlipidemia Obstructive sleep apnea Plan Remains extubated 2 L/min nasal cannula Continue bronchodilators with DuoNeb updrafts Continue IV Solu-Medrol Continue IV R vancomycin and add Bactrim based on presence of stenotrophomonas in his sputum sample. This may also cover MRSA CAT scan of the chest was noted Echo was noted and the patient has a preserved LV function, dilated RV due to chronic lung disease. Procalcitonin level is not elevated proBNP is mildly elevated Provide oral diet Lovenox for DVT prophylaxis Clinically stable Time with Patient: Greater than 30
[2024-09-03 16:20] LABS: Glucose,Whole Blood 173 mg/dL (70-110)
[2024-09-03 20:19] LABS: Glucose,Whole Blood 166 mg/dL (70-110)
[2024-09-04 06:21] LABS: Glucose,Whole Blood 132 mg/dL (70-110)
[2024-09-04 06:45] LABS: Basophils % (A) 0 %; Eosinophils % (A) 0 %; HCT 43.7 % (39.0-53.0); HGB 13.2 gm/dL (13.0-17.5); Hypochromasia Marked; Lymphocytes # (A) 0.6 k/uL (1.0-4.8); Lymphocytes % (A) 5 %; MCH 28.1 pg (25.0-35.0); MCHC 30.2 g/dL (31.0-37.0); MCV 93.3 fL (80.0-100.0); Mean Platelet Volume 8.6; Monocytes # (A) 0.9 k/uL (0-1.0); Monocytes % (A) 7 %; Neutrophils # (A) 11.9 k/uL (1.3-7.7); Neutrophils % (A) 87 %; Platelet Count 271 k/uL (150-450); RBC 4.68 m/uL (4.30-5.90); WBC 13.7 k/uL (3.8-10.6)
[2024-09-04 07:04] LABS: ALT 27 U/L (4-49); AST 25 U/L (17-59); African American GFR (CKD) >90 (>60 ml/min/1.73 sqM); Albumin 3.2 g/dL (3.5-5.0); Alkaline Phosphatase 38 U/L (38-126); Blood Urea Nitrogen 17 mg/dL (9-20); Calcium 8.5 mg/dL (8.4-10.2); Chloride 92 mmol/L (98-107); Glucose 110 mg/dL (74-99); Non-African American GFR(CKD) >90 (>60 ml/min/1.73 sqM); Potassium 4.5 mmol/L (3.5-5.1); Sodium 136 mmol/L (137-145); Total Bilirubin 0.4 mg/dL (0.2-1.3); Total Protein 5.9 g/dL (6.3-8.2)
[2024-09-04 07:27] LABS: Anion Gap 6 mmol/L; Carbon Dioxide 38 mmol/L (22-30)
[2024-09-04] MEDS: IPRATROPIUM-ALBUTEROL 3 ML NEB INHALATION SCH (07:45)
[2024-09-04] MEDS: VANCOMYCIN TROUGH DUE 1 EACH MISC MISCELLANE ONE (09:16)
[2024-09-04 11:38] LABS: Glucose,Whole Blood 131 mg/dL (70-110)
--- NOTE | 2024-09-04 13:06 | P.PN ---
Subjective Progress Note Date: 09/04/24 Principal diagnosis: Reason for follow-up is pneumonia MRSA Patient is a 54-year-old male with a past medical history significant for COPD sleep apnea initially presented to the outside facility with acute respiratory failure, patient did require intubation did have evidence of multifocal pneumonia sputum culture positive for stenotrophomonas bronchial wash positive for MRSA and corynebacterium prompting this consultation. On today's evaluation that is 09/04/2024, patient did not have any fever and denies any chills, patient is breathing comfortably on 3 L current oxygen, patient with no chest pain, cough is decreased in intensity and is more productive, patient did not have any abdominal pain nausea vomiting or any loose stools. Patient white count is 13.7, creatinine 0.51 Vanco trough is 15.2 Objective - Vital Signs Vital signs: Vital Signs Temp 97.2 F L 09/04/24 12:35 Pulse 79 09/04/24 12:35 Resp 18 09/04/24 12:35 BP 120/59 09/04/24 12:35 Pulse Ox 95 09/04/24 12:35 FiO2 40 09/01/24 10:20 Intake & Output 09/03/24 09/04/24 09/04/24 18:59 06:59 18:59 Intake Total 720 220 490 Output Total 400 580 Balance 320 -360 490 Weight 80.9 kg Intake: IV 20 10 Invasive Line 4 20 10 Oral 720 200 480 Output: Urine 400 580 Other: Voiding Method Urinal Urinal # Voids 1 1 # Bowel Movements 1 ABP, PAP, CO, CI - Last Documented Arterial Blood Pressure 92/74 - Exam GENERAL DESCRIPTION: Middle-age male lying in bed in no distress RESPIRATORY SYSTEM: Unlabored breathing , decreased breath sounds at bases HEART: S1 S2 regular rate and rhythm , ABDOMEN: Soft , no tenderness EXTREMITIES: Left upper extremity with the wound but no cellulitis - Labs CBC & Chem 7: 09/04/24 06:19 09/04/24 06:19 Labs: Abnormal Lab Results - Last 24 Hours (Table) 09/03/24 09/03/24 09/04/24 Range/Units 16:18 19:55 05:45 WBC (3.8-10.6) k/uL MCHC (31.0-37.0) g/dL Neutrophils # (1.3-7.7) k/uL Lymphocytes # (1.0-4.8) k/uL Sodium (137-145) mmol/L Chloride (98-107) mmol/L Carbon Dioxide (22-30) mmol/L Creatinine (0.66-1.25) mg/dL Glucose (74-99) mg/dL POC Glucose (mg/dL) 173 H 166 H 132 H (70-110) mg/dL Total Protein (6.3-8.2) g/dL Albumin (3.5-5.0) g/dL 09/04/24 09/04/24 09/04/24 Range/Units 06:19 06:19 11:34 WBC 13.7 H (3.8-10.6) k/uL MCHC 30.2 L (31.0-37.0) g/dL Neutrophils # 11.9 H (1.3-7.7) k/uL Lymphocytes # 0.6 L (1.0-4.8) k/uL Sodium 136 L (137-145) mmol/L Chloride 92 L (98-107) mmol/L Carbon Dioxide 38 H (22-30) mmol/L Creatinine 0.51 L (0.66-1.25) mg/dL Glucose 110 H (74-99) mg/dL POC Glucose (mg/dL) 131 H (70-110) mg/dL Total Protein 5.9 L (6.3-8.2) g/dL Albumin 3.2 L (3.5-5.0) g/dL Microbiology - Last 24 Hours (Table) 08/29/24 11:53 Blood Culture - Final Blood 08/31/24 11:00 Fungal Culture - Preliminary Bronchial Washings - Right Ness albicans Assessment and Plan (1) MRSA (methicillin resistant staph aureus) culture positive Current Visit: Yes Status: Acute Code(s): Z22.322 - CARRIER OR SUSPECTED CARRIER OF METHICILLIN RESIS STAPH SNOMED Code(s): 392251795 (2) Penicillin allergy Current Visit: Yes Status: Acute Code(s): Z88.0 - ALLERGY STATUS TO PENICILLIN SNOMED Code(s): 91833194 (3) Pneumonia Current Visit: Yes Status: Acute Code(s): J18.9 - PNEUMONIA, UNSPECIFIED ORGANISM SNOMED Code(s): 167003183 (4) Wound of left upper extremity Current Visit: Yes Status: Acute Code(s): S41.102A - UNSPECIFIED OPEN WOUND OF LEFT UPPER ARM, INITIAL ENCOUNTER SNOMED Code(s): 395036328 Plan: 1patient presented to hospital with acute respiratory failure requiring intubation and subsequently has been extubated, etiology is multifactorial likely with a component of pneumonia, on 09/01/2024 patient sputum culture positive for stenotrophomonas E. coli with a BAL culture now showing MRSA and corynebacterium 2-penicillin allergy that will limit the number of antibiotics safe to use 3-patient is afebrile white count is slightly up we will monitor closely for now continue with vancomycin pharmacy to dose and Bactrim DS, monitor kidney function closely which is currently normal Dictation was produced using [employer] dictation software. please excuse any grammatical, word or spelling errors. Time with Patient: Less than 30
--- NOTE | 2024-09-04 13:29 | P.PN ---
Subjective Progress Note Date: 09/04/24 This is a pleasant 53 years old male with past medical history of multiple medical problems as below including COPD He was transferred from outside facility already intubated. He is on mechanical ventilation Patient was transferred from [facility]. He presents there because of respiratory distress for 2 days duration associated with dyspnea. He was hypoxic saturating in 70s on room air. In view of his history of COPD and CT of the chest without contrast showing diffuse bilateral airspace opacities with increased pleural thickening and fluid per report findings are suspicious for multifocal pneumonia. Patient was hypotensive and tachycardic. His ABG prior to transfer showing pH is low 7.18 and CO2 is elevated 136. Currently patient cannot provide information. His vitals look stable and afebrile CBC, LFTs are unremarkable as well as metabolic panel with BMP except for eleva anjelica carbon dioxide at 44. Troponin is negative Urine analysis suspicious for infection D-dimer is negative at 0.56 pH here is 7.4 and CO2 is 70. Lactic acid is only 2.2 came down to 1.2. proBNP is 857 Chest x-ray showing persistent multiple airspace opacity with multiple right rib fracture 08/30 Patient still intubated and sedated on mechanical ventilation. FiO2 50% and PEEP of 8, tidal volume 450 mL His vitals looks very stable He was little agitated earlier with coughing and shaking requiring one-time dose of Ativan 08/31 Patient is still intubated requiring mechanical ventilation Patient with no fever and vitals with stable blood pressure and heart rate since admission. WBC went up from 7.8-14.7 while he is on steroids. pH 7.4 and pCO2 is high 76. Sodium 140, potassium 3.2. Creatinine normal. Glucose controlled. Currently kept on IV Solu-Medrol and ceftriaxone and Zithromax Patient had CT of the chest showing no honeycombing but pulmonary edema superimposed on bacterial infection Eliquis pulmonary nodules throughout the lungs bilaterally mainly in the lower lung. 2. Patient seen and examined. Patient was extubated this morning, currently doing better on oxygen via nasal cannula. Patient is moving all extremities. Denies any chest pain. Denies any lightness dizziness. /. Patient seen and examined. Patient is currently sitting upright in the chair. Patient heart rate is slightly elevated. Patient denies any shortness of breath at rest. Patient states that he is anxious. Blood work done showed WBC 9.7, hemoglobin 12, sodium 130, potassium 3.8, carbon Licide 45, BUN 16, creatinine 0.65 09/03. Patient seen and examined. Patient states that he feels better. Still complain lethargic and weakness. Gets short of breath on exertion. Currently on 2 L of oxygen. Patient has some swelling of lower extremities. 09/04. Patient seen and examined. WBC 13.7, hemoglobin 13.2, platelet count 271, sodium 137 potassium 4.5, BUN 17, creatinine 0.51,. Patient stated he feels better. Still complaining of shortness of breath with exertion. Patient currently on vancomycin and Bactrim. REVIEW OF SYSTEMS: Denies any chest pain. Denies any nausea or vomiting Denies any lightheadedness or dizziness PHYSICAL EXAMINATION: GENERAL: The patient is alert HEENT: Pupils are round and equally reacting to light. EOMI. No scleral icterus. No conjunctival pallor. Normocephalic, atraumatic. No pharyngeal erythema. No thyromegaly. CARDIOVASCULAR: S1 and S2 present. No murmurs, rubs, or gallops. PULMONARYgood air entry bilaterally, coarse breath, no wheezing or crackles. ABDOMEN: Soft, nontender, nondistended, normoactive bowel sounds. No palpable organomegaly. MUSCULOSKELETAL: No joint swelling or deformity. EXTREMITIES: No cyanosis, clubbing, or pedal edema. NEUROLOGICAL: Moving all extremity SKIN: No rashes. Assessment and plan Acute hypoxic hypercapnic respiratory failure s/p intubation and mechanical ventilation Bilateral multifocal pneumonia Acute COPD exacerbation bilateral pulmonary nodules throughout both lungs more on the lower zones Possible acute urinary tract infection Multiple right-sided rib fracture Respiratory acidosis, acute Monitor vital signs Monitor CBC Monitor CMP Continue telemetry monitoring Follow-up on blood cultures and follow-up on sputum cultures Aggressive bronchopulmonary hygiene Continue oxygen supplementation Continue Bactrim and pharmacy dose vancomycin Continue breathing treatments continue IV Solu-Medrol Patient underwent bronchoscopy with bronchial lavage on 08/31, bronchial washing growing MRSA Pulmonology following ID following Labs and medication were reviewed.. Continue same treatment. Continue with symptomatic treatment. Resume home medication. Monitor labs and vitals. DVT and GI prophylaxis. Further recommendations as per clinical course of the patient Dictation was produced using [employer] dictation software. please excuse any grammatical, word or spelling errors. Objective - Vital Signs Vital signs: Vital Signs Temp 97.2 F L 09/04/24 12:35 Pulse 79 09/04/24 12:35 Resp 18 09/04/24 12:35 BP 120/59 09/04/24 12:35 Pulse Ox 95 09/04/24 12:35 FiO2 40 09/01/24 10:20 Intake & Output 09/03/24 09/04/24 09/04/24 18:59 06:59 18:59 Intake Total 720 220 490 Output Total 400 580 Balance 320 -360 490 Weight 80.9 kg Intake: IV 20 10 Invasive Line 4 20 10 Oral 720 200 480 Output: Urine 400 580 Other: Voiding Method Urinal Urinal # Voids 1 1 # Bowel Movements 1 ABP, PAP, CO, CI - Last Documented Arterial Blood Pressure 92/74 - Labs CBC & Chem 7: 09/04/24 06:19 09/04/24 06:19 Labs: Abnormal Lab Results - Last 24 Hours (Table) 09/03/24 09/03/24 09/04/24 Range/Units 16:18 19:55 05:45 WBC (3.8-10.6) k/uL MCHC (31.0-37.0) g/dL Neutrophils # (1.3-7.7) k/uL Lymphocytes # (1.0-4.8) k/uL Sodium (137-145) mmol/L Chloride (98-107) mmol/L Carbon Dioxide (22-30) mmol/L Creatinine (0.66-1.25) mg/dL Glucose (74-99) mg/dL POC Glucose (mg/dL) 173 H 166 H 132 H (70-110) mg/dL Total Protein (6.3-8.2) g/dL Albumin (3.5-5.0) g/dL 09/04/24 09/04/24 09/04/24 Range/Units 06:19 06:19 11:34 WBC 13.7 H (3.8-10.6) k/uL MCHC 30.2 L (31.0-37.0) g/dL Neutrophils # 11.9 H (1.3-7.7) k/uL Lymphocytes # 0.6 L (1.0-4.8) k/uL Sodium 136 L (137-145) mmol/L Chloride 92 L (98-107) mmol/L Carbon Dioxide 38 H (22-30) mmol/L Creatinine 0.51 L (0.66-1.25) mg/dL Glucose 110 H (74-99) mg/dL POC Glucose (mg/dL) 131 H (70-110) mg/dL Total Protein 5.9 L (6.3-8.2) g/dL Albumin 3.2 L (3.5-5.0) g/dL Microbiology - Last 24 Hours (Table) 08/29/24 11:53 Blood Culture - Final Blood 08/31/24 11:00 Fungal Culture - Preliminary Bronchial Washings - Right Ness albicans
--- NOTE | 2024-09-04 14:19 | P.PN ---
Subjective Progress Note Date: 09/04/24 53-year-old male who was transferred down, by EMS, from an outside hospital, with respiratory failure. The patient apparently has a history of severe COPD, and the patient was intubated, at the outside hospital, after he failed BiPAP. Apparently his PaCO2 on blood gas was 137. The patient is seen today in the emergency department, trauma room 2. His vent settings include volume assist- control, rate 14, tidal volume 450, FiO2 50%, and PEEP of 5. The patient is getting propofol at 25 mcg/kg/min. He apparently has a history of COPD, and sleep apnea, and apparently is noncompliant with medications. No other history is available other than the fact that he has COPD and sleep apnea. Home medica tions apparently include Trelegy, saline nasal rinse, vitamins, metoprolol, updrafts, with ipratropium bromide and albuterol, Motrin, Flonase nasal spray, Flexeril, Lipitor, aspirin, amlodipine, albuterol inhaler, and Tylenol. Based on these medications it appears in addition to COPD, the patient has a history of gastroesophageal reflux disease, hyperlipidemia, and hypertension. Current laboratory data includes a white count 8.3, hemoglobin 13.2, hematocrit 40.2, and a platelet count 239,000. Blood gases show pO2 of 256, pCO2 of 70, and a pH of 7.44. Bicarbonate concentration on the blood gas was 47, on the electrolyte profile was 44. Sodium 139, potassium 3.9, chloride 87, CO2 44, BUN 19, and creatinine 0.79. Lactic acid was 2.2. Glucose 125. The rest of the CMP looks relatively normal. Viral screen was negative. Chest x-ray shows bilateral airspace opacities, which could be consistent with pneumonia. 08/30/2024, the patient is being seen for a follow-up. The patient has severe COPD and she was intubated in outside hospital after she failed BiPAP and the patient was transferred to us for further care. No further information is available regarding his baseline respiratory status. To my knowledge, the patient has been maintained on Trelegy Ellipta on an outpatient basis in addition to DuoNeb updrafts [id number]. At this point in time, the patient is intubated on the mechanical ventilator and the chest x-ray is showing diffuse bilateral pulmonary infiltrates. This is consistent with multifocal airspace disease. Underlying ILD cannot be completely ruled out. This morning, the patient is on propofol running at 50 mcg/kg/min. He is on assist-control mode of mechanical ventilation at rate of 20, tidal volume of 450, FiO2 40% with a PEEP of 5. Blood gas showed pH of 7.42 with a pCO2 of 71 and pO2 of 133. His peak airway pressure is at 31. Limited crackles and wheezing on today's examination. Cardiac rhythm is sinus. Remains on IV Rocephin and Zithromax. White cell count of 7.8 with him of 10.9 and a platelet count of 242. Sodium is at 138, potassium is at 3.3, bicarb is at 44, BUN is 19 with a creatinine of 0.74. The patient has a proBNP level of 857. Procalcitonin level is at 0.07. Lactic acid level is at 1.2. He is well sedated, calm and comfortable, maintained on wound bronchodilators, maintained on Solu-Medrol, maintained on L ovenox for DVT prophylaxis. On 08/31/2024, the patient is being seen for a follow-up. Patient remains intubated on mechanical ventilator. This morning, he is on propofol running at 40 mcg/kg/min and is also on fentanyl drip at 0.5 mcg/kg/h. Calm and comfortable and synchronous on mechanical ventilator. He remains on assist- control mode of mechanical ventilation at the rate of 14, tidal volume of 450, FiO2 of 40% with a PEEP of 5. Blood gas showed a pH of 7.42 with a pCO2 of 76 and pO2 68. IV fluids are KVO and the patient is eating vital high-protein at rate of 20 cc an hour. Afebrile. Hemodynamically stable. CAT scan of the chest was completed yesterday and it shows diffuse emphysematous changes bilaterally. No evidence of any fibrosis although there is some interlobular septal thickening with scattered pulmonary nodularity specially along the pleural lining. There is also subcentimeter pulmonary nodules and consolidation in the right lung base with a small right-sided pleural effusion. He is having mild to moderate amount of secretions. Based on that, I performed a bro nchoscopy on this patient and a total of 20 cc of purulent respiratory secretions were suctioned out and following that the bronchoalveolar lavage of the right lower lobe was done. The white cell count is 14.7 with a hemoglobin 10.6 and a platelet count of 262. Sodium is at 140, potassium is at 3.2, bicarb is at 46 and rest of the electrolytes are essentially within normal limits. The procalcitonin level was at 0.07 the time of admission. On 09/01/2024, the patient is being seen for a follow-up. This morning, the patient is off propofol and the patient is awake and alert and communicating. Following simple commands. He seems to be quite comfortable. He is still on the mechanical ventilator assist-control mode rate of 14, tidal volume of 450, FiO2 50% with a PEEP of 5. Blood gas showed a pH of 7.47 with pCO2 65 and pO2 of 76. Chest x-ray findings are essentially unchanged and the patient has diffuse interstitial changes bilaterally which remains essentially unchanged and there is improved multifocal opacities compared to yesterday's chest x-ray. There is also trace bilateral pleural effusions. The patient is on normal citrate of 75 cc an hour. Fluid balance is positive and over the past 24 hours, the patient has had a positive fluid balance of 1.9 L. He is receiving vital HP at rate of 20 cc an hour. Peak y and static airway pressures are not elevated. The white cell count is at 9 with a heme of 10.7 and a platelet count of 254. Sodium is at 139, BUN 25 with a creatinine of 0.55 and a potassium level is at 3.9. Bronchoscopy endobronchial lavage was done and awaiting final cultures. The sputum sample that was collected at 08/29/2024 showing stenotrophomonas and E. coli and corynebacterium. The bronchial lavage collected on 08/31/2024 showing presumptive staph aureus. The patient remains on IV Rocephin for now. On 09/02/2024, the patient is awake and alert and the patient is currently on 2 L of oxygen by nasal cannula. The patient was extubated on 09/01/2024 without any complications. Noted his sputum analysis showed stenotrophomonas and E. coli an d Corynebacterium and the bronchoalveolar lavage showed MRSA. The patient is currently on Bactrim. Vancomycin was also added. Doing well. No specific complaints. No significant respiratory secretions. Remains on bronchodilators. Remains on Lovenox for DVT prophylaxis. Remains on IV Solu-Medrol. Blood work from today shows a white cell count of 9.7, hemoglobin 12 and a platelet count of 269. Sodium is at 138, potassium is at 3.8, bicarb is at 45 with a BUN of 16 and a creatinine of 0.6. Awake and alert and communicating. Tolerating diet. On 09/03/2024, the patient is being seen for a follow-up. The patient is doing well. Calm and comfortable. No respite distress. Transferred out of the intensive care unit yesterday. He has MRSA in his BAL and stenotrophomonas in the sputum and the patient is currently on a combination of Bactrim and vancomycin. Remains on bronchodilators. Remains on steroids. Remains on oxygen and the patient is currently on 2 L nasal cannula with a pulse ox of 95%. Labs from yesterday were noted. No new labs are available from today. No altered mentation. No chest pain. Tolerating diet and hemodynamically stable. On 09/04/2024, the patient is being seen for a follow-up. Doing well. No significant shortness of breath. No significant chest pain. No altered mentation. Afebrile. Remains on vancomycin and Bactrim. Remains on oxygen wi th 2 L cannula positively with a pulse ox of 95%.. Labs from today shows white cell count of 13.7, hemoglobin 13 and a platelet count of 271. Patient also has a sodium level of 136, BUN 17 with a creatinine of 0.5. Serum bicarb is at 38. Vancomycin levels are 15. Objective - Vital Signs Vital signs: Vital Signs Temp 97.3 F L 09/04/24 09:07 Pulse 80 09/04/24 09:07 Resp 18 09/04/24 09:07 BP 115/59 09/04/24 09:07 Pulse Ox 97 09/04/24 09:07 FiO2 40 09/01/24 10:20 Intake & Output 09/03/24 09/04/24 09/04/24 18:59 06:59 18:59 Intake Total 720 220 250 Output Total 400 580 Balance 320 -360 250 Weight 80.9 kg Intake: IV 20 10 Invasive Line 4 20 10 Oral 720 200 240 Output: Urine 400 580 Other: Voiding Method Urinal Urinal # Voids 1 1 # Bowel Movements 1 ABP, PAP, CO, CI - Last Documented Arterial Blood Pressure 92/74 - Exam The patient appeared well nourished and normally developed., Extubated and the patient is currently on 2 L of O2 nasal cannula Head exam is unremarkable. No scleral icterus or corneal arcus noted. Neck is without jugular venous distension, thyromegaly, or carotid bruits. Carotid upstrokes are brisk bilaterally. Lungs are diminished bilaterally patient has bibasilar crackles along with scattered expiratory wheezes throughout the lung dickens bilaterally. Cardiac exam reveals the PMI to be normally sized and situated. Rhythm is regular. First and second heart sounds normal. No murmurs, rubs or gallops. Abdominal exam reveals normal bowel sounds, no masses, no organomegaly and no aortic enlargement. Extremities are nonedematous and both femoral and pedal pulses are normal. Examination of the skin revealed no evidence of significant rashes, suspicious appearing nevi or other concerning lesions. Neurologically, the patient is awake and alert and the patient does not have any focal neurological deficit. Cranial nerves are essentially intact. - Labs CBC & Chem 7: 09/04/24 06:19 09/04/24 06:19 Labs: Abnormal Lab Results - Last 24 Hours (Table) 09/03/24 09/03/24 09/03/24 Range/Units 11:08 16:18 19:55 WBC (3.8-10.6) k/uL MCHC (31.0-37.0) g/dL Neutrophils # (1.3-7.7) k/uL Lymphocytes # (1.0-4.8) k/uL Sodium (137-145) mmol/L Chloride (98-107) mmol/L Carbon Dioxide (22-30) mmol/L Creatinine (0.66-1.25) mg/dL Glucose (74-99) mg/dL POC Glucose (mg/dL) 120 H 173 H 166 H (70-110) mg/dL Total Protein (6.3-8.2) g/dL Albumin (3.5-5.0) g/dL 09/04/24 09/04/24 09/04/24 Range/Units 05:45 06:19 06:19 WBC 13.7 H (3.8-10.6) k/uL MCHC 30.2 L (31.0-37.0) g/dL Neutrophils # 11.9 H (1.3-7.7) k/uL Lymphocytes # 0.6 L (1.0-4.8) k/uL Sodium 136 L (137-145) mmol/L Chloride 92 L (98-107) mmol/L Carbon Dioxide 38 H (22-30) mmol/L Creatinine 0.51 L (0.66-1.25) mg/dL Glucose 110 H (74-99) mg/dL POC Glucose (mg/dL) 132 H (70-110) mg/dL Total Protein 5.9 L (6.3-8.2) g/dL Albumin 3.2 L (3.5-5.0) g/dL Microbiology - Last 24 Hours (Table) 08/29/24 11:53 Blood Culture - Final Blood 08/31/24 11:00 Fungal Culture - Preliminary Bronchial Washings - Right Ness albicans Assessment and Plan Plan: Acute hypoxemic respiratory failure, secondary to COPD exacerbation. Extubated on 09/01/2024. Sputum is positive, polymicrobial growth in the bronchial lavage showing MRSA. The sputum sample also showed stenotrophomonas and the patient is currently on a combination of vancomycin and Bactrim. Patient is currently on 2 L of oxygen by nasal cannula. Right lower lobe consolidation/pneumonia. Procalcitonin level is within normal limits. Respiratory secretions are abundant and the patient underwent a bronchoscopy and therapeutic airway suctioning and a bronchioloalveolar lavage of the right lower lobe. The sputum sample showed stenotrophomonas and E. coli and corynebacterium. The bronchoalveolar lavage collected on 08/31/2024 showing MRSA. Afebrile. Hemodynamically stable on no pressors. The patient is currently on a combination of Bactrim and vancomycin. Acute on chronic hypoxic/hypercapnic respiratory failure, currently extubated on 09/01/2024 the patient is acid-base status seems to be compensated at this point in time. Oxygenation is also stable. The patient is currently on 2 L of oxygen by nasal cannula Chronic pleural nodularities and thickening in addition to old right-sided rib fractures. Advanced COPD, maintained on Trelegy Ellipta and DuoNeb updrafts on outpatient basis. Baseline pulmonary function test is not known. Hypertension Hyperlipidemia Obstructive sleep apnea Plan Remains extubated 2 L/min nasal cannula Continue bronchodilators with DuoNeb updrafts Stop the IV Solu-Medrol and start the patient on prednisone burst taper Continue IV R vancomycin and add Bactrim based on presence of stenotrophomonas in his sputum sample. Will get ID recommendations regarding outpatient antibiotic treatment CAT scan of the chest was noted Echo was noted and the patient has a preserved LV function, dilated RV due to chronic lung disease. Procalcitonin level is not elevated proBNP is mildly elevated Provide oral diet Lovenox for DVT prophylaxis Clinically stable Time with Patient: Greater than 30
[2024-09-04 16:13] LABS: Glucose,Whole Blood 170 mg/dL (70-110)
[2024-09-04 20:38] LABS: Glucose,Whole Blood 188 mg/dL (70-110)
[2024-09-04 20:41] LABS: Glucose,Whole Blood 161 mg/dL (70-110)
[2024-09-05 06:24] LABS: Glucose,Whole Blood 86 mg/dL (70-110)
[2024-09-05 07:13] LABS: African American GFR (CKD) >90 (>60 ml/min/1.73 sqM); Non-African American GFR(CKD) >90 (>60 ml/min/1.73 sqM)
[2024-09-05] MEDS: predniSONE 20 MG TAB PO SCH (08:37)
[2024-09-05 11:05] LABS: Glucose,Whole Blood 85 mg/dL (70-110)
[2024-09-05] MEDS: FLUTICASONE NASAL 50MCG/SPRAY 16GM BTL EA NOSTRIL PRN (13:38)
--- NOTE | 2024-09-05 13:51 | P.PN ---
Subjective Progress Note Date: 09/05/24 53-year-old male who was transferred down, by EMS, from an outside hospital, with respiratory failure. The patient apparently has a history of severe COPD, and the patient was intubated, at the outside hospital, after he failed BiPAP. Apparently his PaCO2 on blood gas was 137. The patient is seen today in the emergency department, trauma room 2. His vent settings include volume assist- control, rate 14, tidal volume 450, FiO2 50%, and PEEP of 5. The patient is getting propofol at 25 mcg/kg/min. He apparently has a history of COPD, and sleep apnea, and apparently is noncompliant with medications. No other history is available other than the fact that he has COPD and sleep apnea. Home medica tions apparently include Trelegy, saline nasal rinse, vitamins, metoprolol, updrafts, with ipratropium bromide and albuterol, Motrin, Flonase nasal spray, Flexeril, Lipitor, aspirin, amlodipine, albuterol inhaler, and Tylenol. Based on these medications it appears in addition to COPD, the patient has a history of gastroesophageal reflux disease, hyperlipidemia, and hypertension. Current laboratory data includes a white count 8.3, hemoglobin 13.2, hematocrit 40.2, and a platelet count 239,000. Blood gases show pO2 of 256, pCO2 of 70, and a pH of 7.44. Bicarbonate concentration on the blood gas was 47, on the electrolyte profile was 44. Sodium 139, potassium 3.9, chloride 87, CO2 44, BUN 19, and creatinine 0.79. Lactic acid was 2.2. Glucose 125. The rest of the CMP looks relatively normal. Viral screen was negative. Chest x-ray shows bilateral airspace opacities, which could be consistent with pneumonia. 08/30/2024, the patient is being seen for a follow-up. The patient has severe COPD and she was intubated in outside hospital after she failed BiPAP and the patient was transferred to us for further care. No further information is available regarding his baseline respiratory status. To my knowledge, the patient has been maintained on Trelegy Ellipta on an outpatient basis in addition to DuoNeb updrafts [id number]. At this point in time, the patient is intubated on the mechanical ventilator and the chest x-ray is showing diffuse bilateral pulmonary infiltrates. This is consistent with multifocal airspace disease. Underlying ILD cannot be completely ruled out. This morning, the patient is on propofol running at 50 mcg/kg/min. He is on assist-control mode of mechanical ventilation at rate of 20, tidal volume of 450, FiO2 40% with a PEEP of 5. Blood gas showed pH of 7.42 with a pCO2 of 71 and pO2 of 133. His peak airway pressure is at 31. Limited crackles and wheezing on today's examination. Cardiac rhythm is sinus. Remains on IV Rocephin and Zithromax. White cell count of 7.8 with him of 10.9 and a platelet count of 242. Sodium is at 138, potassium is at 3.3, bicarb is at 44, BUN is 19 with a creatinine of 0.74. The patient has a proBNP level of 857. Procalcitonin level is at 0.07. Lactic acid level is at 1.2. He is well sedated, calm and comfortable, maintained on wound bronchodilators, maintained on Solu-Medrol, maintained on L ovenox for DVT prophylaxis. On 08/31/2024, the patient is being seen for a follow-up. Patient remains intubated on mechanical ventilator. This morning, he is on propofol running at 40 mcg/kg/min and is also on fentanyl drip at 0.5 mcg/kg/h. Calm and comfortable and synchronous on mechanical ventilator. He remains on assist- control mode of mechanical ventilation at the rate of 14, tidal volume of 450, FiO2 of 40% with a PEEP of 5. Blood gas showed a pH of 7.42 with a pCO2 of 76 and pO2 68. IV fluids are KVO and the patient is eating vital high-protein at rate of 20 cc an hour. Afebrile. Hemodynamically stable. CAT scan of the chest was completed yesterday and it shows diffuse emphysematous changes bilaterally. No evidence of any fibrosis although there is some interlobular septal thickening with scattered pulmonary nodularity specially along the pleural lining. There is also subcentimeter pulmonary nodules and consolidation in the right lung base with a small right-sided pleural effusion. He is having mild to moderate amount of secretions. Based on that, I performed a bro nchoscopy on this patient and a total of 20 cc of purulent respiratory secretions were suctioned out and following that the bronchoalveolar lavage of the right lower lobe was done. The white cell count is 14.7 with a hemoglobin 10.6 and a platelet count of 262. Sodium is at 140, potassium is at 3.2, bicarb is at 46 and rest of the electrolytes are essentially within normal limits. The procalcitonin level was at 0.07 the time of admission. On 09/01/2024, the patient is being seen for a follow-up. This morning, the patient is off propofol and the patient is awake and alert and communicating. Following simple commands. He seems to be quite comfortable. He is still on the mechanical ventilator assist-control mode rate of 14, tidal volume of 450, FiO2 50% with a PEEP of 5. Blood gas showed a pH of 7.47 with pCO2 65 and pO2 of 76. Chest x-ray findings are essentially unchanged and the patient has diffuse interstitial changes bilaterally which remains essentially unchanged and there is improved multifocal opacities compared to yesterday's chest x-ray. There is also trace bilateral pleural effusions. The patient is on normal citrate of 75 cc an hour. Fluid balance is positive and over the past 24 hours, the patient has had a positive fluid balance of 1.9 L. He is receiving vital HP at rate of 20 cc an hour. Peak y and static airway pressures are not elevated. The white cell count is at 9 with a heme of 10.7 and a platelet count of 254. Sodium is at 139, BUN 25 with a creatinine of 0.55 and a potassium level is at 3.9. Bronchoscopy endobronchial lavage was done and awaiting final cultures. The sputum sample that was collected at 08/29/2024 showing stenotrophomonas and E. coli and corynebacterium. The bronchial lavage collected on 08/31/2024 showing presumptive staph aureus. The patient remains on IV Rocephin for now. On 09/02/2024, the patient is awake and alert and the patient is currently on 2 L of oxygen by nasal cannula. The patient was extubated on 09/01/2024 without any complications. Noted his sputum analysis showed stenotrophomonas and E. coli an d Corynebacterium and the bronchoalveolar lavage showed MRSA. The patient is currently on Bactrim. Vancomycin was also added. Doing well. No specific complaints. No significant respiratory secretions. Remains on bronchodilators. Remains on Lovenox for DVT prophylaxis. Remains on IV Solu-Medrol. Blood work from today shows a white cell count of 9.7, hemoglobin 12 and a platelet count of 269. Sodium is at 138, potassium is at 3.8, bicarb is at 45 with a BUN of 16 and a creatinine of 0.6. Awake and alert and communicating. Tolerating diet. On 09/03/2024, the patient is being seen for a follow-up. The patient is doing well. Calm and comfortable. No respite distress. Transferred out of the intensive care unit yesterday. He has MRSA in his BAL and stenotrophomonas in the sputum and the patient is currently on a combination of Bactrim and vancomycin. Remains on bronchodilators. Remains on steroids. Remains on oxygen and the patient is currently on 2 L nasal cannula with a pulse ox of 95%. Labs from yesterday were noted. No new labs are available from today. No altered mentation. No chest pain. Tolerating diet and hemodynamically stable. On 09/04/2024, the patient is being seen for a follow-up. Doing well. No significant shortness of breath. No significant chest pain. No altered mentation. Afebrile. Remains on vancomycin and Bactrim. Remains on oxygen wi th 2 L cannula positively with a pulse ox of 95%.. Labs from today shows white cell count of 13.7, hemoglobin 13 and a platelet count of 271. Patient also has a sodium level of 136, BUN 17 with a creatinine of 0.5. Serum bicarb is at 38. Vancomycin levels are 15. On 09/05/2024, the patient is stable without any worsening in respiratory status. Remains on 2 L of oxygen by nasal cannula. Remains on a combination of Bactrim and vancomycin. Remains on DuoNeb updrafts 4 times a day and the patient is also on a combination performance of Pulmicort nebulized treatments twice a day. Start on prednisone burst taper and IV Solu-Medrol has been discontinued. Remains on Lovenox for DVT prophylaxis. No new labs from today. No altered mentation. No chest pain. No pleurisy. No hemoptysis. Objective - Vital Signs Vital signs: Vital Signs Temp 97.9 F 09/05/24 11:58 Pulse 92 09/05/24 12:07 Resp 20 09/05/24 11:58 BP 100/59 09/05/24 11:58 Pulse Ox 98 09/05/24 11:58 FiO2 40 09/01/24 10:20 Intake & Output 09/04/24 09/05/24 09/05/24 18:59 06:59 18:59 Intake Total 740 20 510 Output Total 150 200 100 Balance 590 -180 410 Weight 83 kg Intake: IV 20 20 30 Invasive Line 4 20 20 30 Oral 720 480 Output: Urine 150 200 100 Other: Voiding Method Urinal Urinal Urinal # Voids 1 # Bowel Movements 1 1 ABP, PAP, CO, CI - Last Documented Arterial Blood Pressure 92/74 - Exam The patient appeared well nourished and normally developed., Extubated and the patient is currently on 2 L of O2 nasal cannula Head exam is unremarkable. No scleral icterus or corneal arcus noted. Neck is without jugular venous distension, thyromegaly, or carotid bruits. Carotid upstrokes are brisk bilaterally. Lungs are diminished bilaterally patient has bibasilar crackles along with scattered expiratory wheezes throughout the lung dickens bilaterally. Cardiac exam reveals the PMI to be normally sized and situated. Rhythm is regular. First and second heart sounds normal. No murmurs, rubs or gallops. Abdominal exam reveals normal bowel sounds, no masses, no organomegaly and no aortic enlargement. Extremities are nonedematous and both femoral and pedal pulses are normal. Examination of the skin revealed no evidence of significant rashes, suspicious appearing nevi or other concerning lesions. Neurologically, the patient is awake and alert and the patient does not have any focal neurological deficit. Cranial nerves are essentially intact. - Labs CBC & Chem 7: 09/04/24 06:19 09/05/24 06:19 Labs: Abnormal Lab Results - Last 24 Hours (Table) 09/04/24 09/04/24 09/04/24 Range/Units 16:06 20:02 20:37 Creatinine (0.66-1.25) mg/dL POC Glucose (mg/dL) 170 H 161 H 188 H (70-110) mg/dL 09/05/24 Range/Units 06:19 Creatinine 0.51 L (0.66-1.25) mg/dL POC Glucose (mg/dL) (70-110) mg/dL Assessment and Plan Plan: Acute hypoxemic respiratory failure, secondary to COPD exacerbation. Extubated on 09/01/2024. Sputum is positive, polymicrobial growth in the bronchial lavage showing MRSA. The sputum sample also showed stenotrophomonas and the patient is currently on a combination of vancomycin and Bactrim. Patient is currently on 2 L of oxygen by nasal cannula. Right lower lobe consolidation/pneumonia. Procalcitonin level is within normal limits. Respiratory secretions are abundant and the patient underwent a bronchoscopy and therapeutic airway suctioning and a bronchioloalveolar lavage of the right lower lobe. The sputum sample showed stenotrophomonas and E. coli and corynebacterium. The bronchoalveolar lavage collected on 08/31/2024 showing MRSA. Afebrile. Hemodynamically stable on no pressors. The patient is currently on a combination of Bactrim and vancomycin. Acute on chronic hypoxic/hypercapnic respiratory failure, currently extubated on 09/01/2024 the patient is acid-base status seems to be compensated at this point in time. Oxygenation is also stable. The patient is currently on 2 L of oxygen by nasal cannula Chronic pleural nodularities and thickening in addition to old right-sided rib fractures. Advanced COPD, maintained on Trelegy Ellipta and DuoNeb updrafts on outpatient basis. Baseline pulmonary function test is not known. Hypertension Hyperlipidemia Obstructive sleep apnea Plan Remains extubated 2 L/min nasal cannula Continue bronchodilators with DuoNeb updrafts Prednisone burst taper starting from 40 mg p.o. daily Continue IV R vancomycin and add Bactrim based on presence of stenotrophomonas in his sputum sample. Will get ID recommendations regarding outpatient antibiotic treatment and following those recommendations, the patient can be potentially discharged home on oral antibiotics. CAT scan of the chest was noted Echo was noted and the patient has a preserved LV function, dilated RV due to chronic lung disease. Procalcitonin level is not elevated proBNP is mildly elevated Provide oral diet Lovenox for DVT prophylaxis Clinically stable Possible discharge later today over the next 24 hours Time with Patient: Greater than 30
--- NOTE | 2024-09-05 14:48 | P.PN ---
Subjective Progress Note Date: 09/05/24 Principal diagnosis: Reason for follow-up is pneumonia MRSA Patient is a 54-year-old male with a past medical history significant for COPD sleep apnea initially presented to the outside facility with acute respiratory failure, patient did require intubation did have evidence of multifocal pneumonia sputum culture positive for stenotrophomonas bronchial wash positive for MRSA and corynebacterium prompting this consultation. On today's evaluation that is 09/05/2024, Patient is afebrile patient is currently on 2 L nasal cannula oxygen and denies having any shortness of breath, the patient denies any chest pain did have a cough and is bringing up some sputum no hemoptysis, the patient denies any nausea vomiting did not have any abdominal pain and no diarrhea. Patient did have a creatinine of 0.55 no CBC was done today Vanco trough is 15.2 Objective - Vital Signs Vital signs: Vital Signs Temp 97.9 F 09/05/24 11:58 Pulse 92 09/05/24 12:07 Resp 20 09/05/24 11:58 BP 100/59 09/05/24 11:58 Pulse Ox 98 09/05/24 11:58 FiO2 40 09/01/24 10:20 Intake & Output 09/04/24 09/05/24 09/05/24 18:59 06:59 18:59 Intake Total 740 20 510 Output Total 150 200 100 Balance 590 -180 410 Weight 83 kg Intake: IV 20 20 30 Invasive Line 4 20 20 30 Oral 720 480 Output: Urine 150 200 100 Other: Voiding Method Urinal Urinal Urinal # Voids 1 # Bowel Movements 1 1 ABP, PAP, CO, CI - Last Documented Arterial Blood Pressure 92/74 - Exam GENERAL DESCRIPTION: Middle-age male lying in bed in no distress RESPIRATORY SYSTEM: Unlabored breathing , decreased breath sounds at bases HEART: S1 S2 regular rate and rhythm , ABDOMEN: Soft , no tenderness EXTREMITIES: Left upper extremity with the wound but no cellulitis - Labs CBC & Chem 7: 09/04/24 06:19 09/05/24 06:19 Labs: Abnormal Lab Results - Last 24 Hours (Table) 09/04/24 09/04/24 09/04/24 Range/Units 16:06 20:02 20:37 Creatinine (0.66-1.25) mg/dL POC Glucose (mg/dL) 170 H 161 H 188 H (70-110) mg/dL 09/05/24 Range/Units 06:19 Creatinine 0.51 L (0.66-1.25) mg/dL POC Glucose (mg/dL) (70-110) mg/dL Assessment and Plan (1) MRSA (methicillin resistant staph aureus) culture positive Current Visit: Yes Status: Acute Code(s): Z22.322 - CARRIER OR SUSPECTED CARRIER OF METHICILLIN RESIS STAPH SNOMED Code(s): 800631556 (2) Penicillin allergy Current Visit: Yes Status: Acute Code(s): Z88.0 - ALLERGY STATUS TO PENICILLIN SNOMED Code(s): 28909237 (3) Pneumonia Current Visit: Yes Status: Acute Code(s): J18.9 - PNEUMONIA, UNSPECIFIED ORGANISM SNOMED Code(s): 838007980 (4) Wound of left upper extremity Current Visit: Yes Status: Acute Code(s): S41.102A - UNSPECIFIED OPEN WOUND OF LEFT UPPER ARM, INITIAL ENCOUNTER SNOMED Code(s): 256318413 Plan: 1patient presented to hospital with acute respiratory failure requiring intubation and subsequently has been extubated, etiology is multifactorial lik brittney with a component of pneumonia, on 09/01/2024 patient sputum culture positive for stenotrophomonas E. coli with a BAL culture now showing MRSA and corynebacterium 2-penicillin allergy that will limit the number of antibiotics safe to use 3-patient is afebrile white count is slightly up yesterday, no CBC was done today, 4patient will continue with vancomycin pharmacy to dose, the patient creatinine and Vanco trough for therapeutic is normal, however no plan for IV antibiotics on discharge Dictation was produced using [employer] dictation software. please excuse any grammatical, word or spelling errors. Time with Patient: Less than 30
--- NOTE | 2024-09-05 15:06 | P.PN ---
Subjective Progress Note Date: 09/05/24 This is a pleasant 53 years old male with past medical history of multiple medical problems as below including COPD He was transferred from outside facility already intubated. He is on mechanical ventilation Patient was transferred from [facility]. He presents there because of respiratory distress for 2 days duration associated with dyspnea. He was hypoxic saturating in 70s on room air. In view of his history of COPD and CT of the chest without contrast showing diffuse bilateral airspace opacities with increased pleural thickening and fluid per report findings are suspicious for multifocal pneumonia. Patient was hypotensive and tachycardic. His ABG prior to transfer showing pH is low 7.18 and CO2 is elevated 136. Currently patient cannot provide information. His vitals look stable and afebrile CBC, LFTs are unremarkable as well as metabolic panel with BMP except for eleva anjelica carbon dioxide at 44. Troponin is negative Urine analysis suspicious for infection D-dimer is negative at 0.56 pH here is 7.4 and CO2 is 70. Lactic acid is only 2.2 came down to 1.2. proBNP is 857 Chest x-ray showing persistent multiple airspace opacity with multiple right rib fracture 08/30 Patient still intubated and sedated on mechanical ventilation. FiO2 50% and PEEP of 8, tidal volume 450 mL His vitals looks very stable He was little agitated earlier with coughing and shaking requiring one-time dose of Ativan 08/31 Patient is still intubated requiring mechanical ventilation Patient with no fever and vitals with stable blood pressure and heart rate since admission. WBC went up from 7.8-14.7 while he is on steroids. pH 7.4 and pCO2 is high 76. Sodium 140, potassium 3.2. Creatinine normal. Glucose controlled. Currently kept on IV Solu-Medrol and ceftriaxone and Zithromax Patient had CT of the chest showing no honeycombing but pulmonary edema superimposed on bacterial infection Eliquis pulmonary nodules throughout the lungs bilaterally mainly in the lower lung. 2. Patient seen and examined. Patient was extubated this morning, currently doing better on oxygen via nasal cannula. Patient is moving all extremities. Denies any chest pain. Denies any lightness dizziness. /. Patient seen and examined. Patient is currently sitting upright in the chair. Patient heart rate is slightly elevated. Patient denies any shortness of breath at rest. Patient states that he is anxious. Blood work done showed WBC 9.7, hemoglobin 12, sodium 130, potassium 3.8, carbon Licide 45, BUN 16, creatinine 0.65 09/03. Patient seen and examined. Patient states that he feels better. Still complain lethargic and weakness. Gets short of breath on exertion. Currently on 2 L of oxygen. Patient has some swelling of lower extremities. 09/04. Patient seen and examined. WBC 13.7, hemoglobin 13.2, platelet count 271, sodium 137 potassium 4.5, BUN 17, creatinine 0.51,. Patient stated he feels better. Still complaining of shortness of breath with exertion. Patient currently on vancomycin and Bactrim. 09/05. Patient seen and examined. No acute issues overnight. Vital signs stable REVIEW OF SYSTEMS: Denies any chest pain. Denies any nausea or vomiting Denies any lightheadedness or dizziness PHYSICAL EXAMINATION: GENERAL: The patient is alert HEENT: Pupils are round and equally reacting to light. EOMI. No scleral icterus. No conjunctival pallor. Normocephalic, atraumatic. No pharyngeal erythema. No thyromegaly. CARDIOVASCULAR: S1 and S2 present. No murmurs, rubs, or gallops. PULMONARYgood air entry bilaterally, coarse breath, no wheezing or crackles. ABDOMEN: Soft, nontender, nondistended, normoactive bowel sounds. No palpable organomegaly. MUSCULOSKELETAL: No joint swelling or deformity. EXTREMITIES: No cyanosis, clubbing, or pedal edema. NEUROLOGICAL: Moving all extremity SKIN: No rashes. Assessment and plan Acute hypoxic hypercapnic respiratory failure s/p intubation and mechanical ventilation Bilateral multifocal pneumonia Acute COPD exacerbation bilateral pulmonary nodules throughout both lungs more on the lower zones Possible acute urinary tract infection Multiple right-sided rib fracture Respiratory acidosis, acute Monitor vital signs Monitor CBC Monitor CMP Continue telemetry monitoring Follow-up on blood cultures and follow-up on sputum cultures Aggressive bronchopulmonary hygiene Continue oxygen supplementation Continue Bactrim and pharmacy dose vancomycin Continue breathing treatments Continue prednisone Patient underwent bronchoscopy with bronchial lavage on 08/31, bronchial washing growing MRSA Pulmonology following ID following Labs and medication were reviewed.. Continue same treatment. Continue with symptomatic treatment. Resume home medication. Monitor labs and vitals. DVT and GI prophylaxis. Further recommendations as per clinical course of the patient Dictation was produced using [employer] dictation software. please excuse any grammatical, word or spelling errors. Objective - Vital Signs Vital signs: Vital Signs Temp 98.2 F 09/05/24 08:30 Pulse 84 09/05/24 08:30 Resp 18 09/05/24 08:30 BP 125/80 09/05/24 08:30 Pulse Ox 97 09/05/24 08:30 FiO2 40 09/01/24 10:20 Intake & Output 09/04/24 09/05/24 09/05/24 18:59 06:59 18:59 Intake Total 740 20 270 Output Total 150 200 100 Balance 590 -180 170 Weight 83 kg Intake: IV 20 20 30 Invasive Line 4 20 20 30 Oral 720 240 Output: Urine 150 200 100 Other: Voiding Method Urinal Urinal Urinal # Voids 1 # Bowel Movements 1 1 ABP, PAP, CO, CI - Last Documented Arterial Blood Pressure 92/74 - Labs CBC & Chem 7: 09/04/24 06:19 09/05/24 06:19 Labs: Abnormal Lab Results - Last 24 Hours (Table) 09/04/24 09/04/24 09/04/24 Range/Units 11:34 16:06 20:02 Creatinine (0.66-1.25) mg/dL POC Glucose (mg/dL) 131 H 170 H 161 H (70-110) mg/dL 09/04/24 09/05/24 Range/Units 20:37 06:19 Creatinine 0.51 L (0.66-1.25) mg/dL POC Glucose (mg/dL) 188 H (70-110) mg/dL
[2024-09-05 16:08] LABS: Glucose,Whole Blood 115 mg/dL (70-110)
[2024-09-05 20:03] LABS: Glucose,Whole Blood 150 mg/dL (70-110)
[2024-09-06 05:52] LABS: Glucose,Whole Blood 114 mg/dL (70-110)
[2024-09-06 06:27] LABS: Basophils # (A) 0.1 k/uL (0-0.2); Basophils % (A) 0 %; Eosinophils # (A) 0.1 k/uL (0-0.7); Eosinophils % (A) 1 %; HCT 44.2 % (39.0-53.0); HGB 13.6 gm/dL (13.0-17.5); Hypochromasia Slight; Lymphocytes # (A) 1.8 k/uL (1.0-4.8); Lymphocytes % (A) 13 %; MCH 28.5 pg (25.0-35.0); MCHC 30.8 g/dL (31.0-37.0); MCV 92.7 fL (80.0-100.0); Mean Platelet Volume 7.3; Monocytes # (A) 1.3 k/uL (0-1.0); Monocytes % (A) 9 %; Neutrophils # (A) 10.5 k/uL (1.3-7.7); Neutrophils % (A) 75 %; Platelet Count 274 k/uL (150-450); RBC 4.77 m/uL (4.30-5.90); RDW 13.2 % (11.5-15.5)
[2024-09-06 06:40] LABS: ALT 35 U/L (4-49); AST 25 U/L (17-59); African American GFR (CKD) >90 (>60 ml/min/1.73 sqM); Albumin 3.1 g/dL (3.5-5.0); Alkaline Phosphatase 31 U/L (38-126); Blood Urea Nitrogen 14 mg/dL (9-20); Calcium 8.2 mg/dL (8.4-10.2); Chloride 89 mmol/L (98-107); Glucose 75 mg/dL (74-99); Non-African American GFR(CKD) >90 (>60 ml/min/1.73 sqM); Potassium 4.3 mmol/L (3.5-5.1); Sodium 136 mmol/L (137-145); Total Bilirubin 0.4 mg/dL (0.2-1.3); Total Protein 5.7 g/dL (6.3-8.2)
[2024-09-06 06:46] LABS: Anion Gap 2 mmol/L
[2024-09-06 07:12] LABS: Carbon Dioxide 45 mmol/L (22-30)
[2024-09-06 11:27] LABS: Glucose,Whole Blood 93 mg/dL (70-110)
--- NOTE | 2024-09-06 14:56 | P.PN ---
Subjective Progress Note Date: 09/06/24 Principal diagnosis: Reason for follow-up is pneumonia MRSA Patient is a 54-year-old male with a past medical history significant for COPD sleep apnea initially presented to the outside facility with acute respiratory failure, patient did require intubation did have evidence of multifocal pneumonia sputum culture positive for stenotrophomonas bronchial wash positive for MRSA and corynebacterium prompting this consultation. On today's evaluation that is 09/06/2024, patient has been afebrile, patient is breathing comfortably and is currently on 4 L, oxygen, patient denies having any significant chest pain or any worsening cough which is decreased in intensity, patient denies nausea vomiting or diarrhea and no abdominal pain. Patient admitted to 14,000, creatinine 0.50 Objective - Vital Signs Vital signs: Vital Signs Temp 97.9 F 09/06/24 08:00 Pulse 88 09/06/24 11:14 Resp 18 09/06/24 08:00 BP 134/63 09/06/24 08:00 Pulse Ox 96 09/06/24 08:00 FiO2 40 09/01/24 10:20 Intake & Output 09/05/24 09/06/24 09/06/24 18:59 06:59 18:59 Intake Total 630 240 Output Total 700 200 275 Balance -70 -200 -35 Weight 85.4 kg Intake: IV 30 Invasive Line 4 30 Oral 600 240 Output: Urine 700 200 275 Other: Voiding Method Urinal Urinal # Voids 2 # Bowel Movements 1 ABP, PAP, CO, CI - Last Documented Arterial Blood Pressure 92/74 - Exam GENERAL DESCRIPTION: Middle-age male lying in bed in no distress RESPIRATORY SYSTEM: Unlabored breathing , decreased breath sounds at bases HEART: S1 S2 regular rate and rhythm , ABDOMEN: Soft , no tenderness EXTREMITIES: Left upper extremity with the wound but no cellulitis - Labs CBC & Chem 7: 09/06/24 05:57 09/06/24 05:57 Labs: Abnormal Lab Results - Last 24 Hours (Table) 09/05/24 09/05/24 09/06/24 Range/Units 16:05 20:02 05:50 WBC (3.8-10.6) k/uL MCHC (31.0-37.0) g/dL Neutrophils # (1.3-7.7) k/uL Monocytes # (0-1.0) k/uL Sodium (137-145) mmol/L Chloride (98-107) mmol/L Carbon Dioxide (22-30) mmol/L Creatinine (0.66-1.25) mg/dL POC Glucose (mg/dL) 115 H 150 H 114 H (70-110) mg/dL Calcium (8.4-10.2) mg/dL Alkaline Phosphatase (38-126) U/L Total Protein (6.3-8.2) g/dL Albumin (3.5-5.0) g/dL 09/06/24 09/06/24 Range/Units 05:57 05:57 WBC 14.0 H (3.8-10.6) k/uL MCHC 30.8 L (31.0-37.0) g/dL Neutrophils # 10.5 H (1.3-7.7) k/uL Monocytes # 1.3 H (0-1.0) k/uL Sodium 136 L (137-145) mmol/L Chloride 89 L (98-107) mmol/L Carbon Dioxide 45 H* (22-30) mmol/L Creatinine 0.50 L (0.66-1.25) mg/dL POC Glucose (mg/dL) (70-110) mg/dL Calcium 8.2 L (8.4-10.2) mg/dL Alkaline Phosphatase 31 L (38-126) U/L Total Protein 5.7 L (6.3-8.2) g/dL Albumin 3.1 L (3.5-5.0) g/dL Assessment and Plan (1) MRSA (methicillin resistant staph aureus) culture positive Current Visit: Yes Status: Acute Code(s): Z22.322 - CARRIER OR SUSPECTED CARRIER OF METHICILLIN RESIS STAPH SNOMED Code(s): 602152388 (2) Penicillin allergy Current Visit: Yes Status: Acute Code(s): Z88.0 - ALLERGY STATUS TO PENICILLIN SNOMED Code(s): 82150113 (3) Pneumonia Current Visit: Yes Status: Acute Code(s): J18.9 - PNEUMONIA, UNSPECIFIED ORGANISM SNOMED Code(s): 403702183 (4) Wound of left upper extremity Current Visit: Yes Status: Acute Code(s): S41.102A - UNSPECIFIED OPEN WOUND OF LEFT UPPER ARM, INITIAL ENCOUNTER SNOMED Code(s): 194618190 (5) Thrush Current Visit: Yes Status: Acute Code(s): B37.0 - CANDIDAL STOMATITIS SNOMED Code(s): 73694973 Plan: 1patient presented to hospital with acute respiratory failure requiring intubation and subsequently has been extubated, etiology is multifactorial likely with a component of pneumonia, on 09/01/2024 patient sputum culture positive for stenotrophomonas E. coli with a BAL culture now showing MRSA and corynebacterium 2-penicillin allergy that will limit the number of antibiotics safe to use 3-patient is afebrile white count is slightly up could be related to steroid versus thrush we will add nystatin swish and swallow 4patient currently be treated with vancomycin pharmacy to dose however patient be able to finish therapy with the Bactrim DS on discharge Dictation was produced using [employer] dictation software. please excuse any grammatical, word or spelling errors. Time with Patient: Less than 30
[2024-09-06 16:30] LABS: Glucose,Whole Blood 126 mg/dL (70-110)
[2024-09-06] MEDS: NYSTATIN 100,000 UNIT/ML SUSP 500,000 UNIT/5 ML CUP PO SCH (17:11)
--- NOTE | 2024-09-06 17:43 | P.PN ---
Subjective Progress Note Date: 09/06/24 53-year-old male who was transferred down, by EMS, from an outside hospital, with respiratory failure. The patient apparently has a history of severe COPD, and the patient was intubated, at the outside hospital, after he failed BiPAP. Apparently his PaCO2 on blood gas was 137. The patient is seen today in the emergency department, trauma room 2. His vent settings include volume assist- control, rate 14, tidal volume 450, FiO2 50%, and PEEP of 5. The patient is getting propofol at 25 mcg/kg/min. He apparently has a history of COPD, and sleep apnea, and apparently is noncompliant with medications. No other history is available other than the fact that he has COPD and sleep apnea. Home medicat ions apparently include Trelegy, saline nasal rinse, vitamins, metoprolol, updrafts, with ipratropium bromide and albuterol, Motrin, Flonase nasal spray, Flexeril, Lipitor, aspirin, amlodipine, albuterol inhaler, and Tylenol. Based on these medications it appears in addition to COPD, the patient has a history of gastroesophageal reflux disease, hyperlipidemia, and hypertension. Current laboratory data includes a white count 8.3, hemoglobin 13.2, hematocrit 40.2, and a platelet count 239,000. Blood gases show pO2 of 256, pCO2 of 70, and a pH of 7.44. Bicarbonate concentration on the blood gas was 47, on the electrolyte profile was 44. Sodium 139, potassium 3.9, chloride 87, CO2 44, BUN 19, and creatinine 0.79. Lactic acid was 2.2. Glucose 125. The rest of the CMP looks relatively normal. Viral screen was negative. Chest x-ray shows bilateral airspace opacities, which could be consistent with pneumonia. 08/30/2024, the patient is being seen for a follow-up. The patient has severe COPD and she was intubated in outside hospital after she failed BiPAP and the patient was transferred to us for further care. No further information is available regarding his baseline respiratory status. To my knowledge, the patient has been maintained on Trelegy Ellipta on an outpatient basis in addition to DuoNeb updrafts [id number]. At this point in time, the patient is intubated on the mechanical ventilator and the chest x-ray is showing diffuse bilateral pulmonary infiltrates. This is consistent with multifocal airspace disease. Underlying ILD cannot be completely ruled out. This morning, the patient is on propofol running at 50 mcg/kg/min. He is on assist-control mode of mechanical ventilation at rate of 20, tidal volume of 450, FiO2 40% with a PEEP of 5. Blood gas showed pH of 7.42 with a pCO2 of 71 and pO2 of 133. His peak airway pressure is at 31. Limited crackles and wheezing on today's examination. Cardiac rhythm is sinus. Remains on IV Rocephin and Zithromax. White cell count of 7.8 with him of 10.9 and a platelet count of 242. Sodium is at 138, potassium is at 3.3, bicarb is at 44, BUN is 19 with a creatinine of 0.74. The patient has a proBNP level of 857. Procalcitonin level is at 0.07. Lactic acid level is at 1.2. He is well sedated, calm and comfortable, maintained on wound bronchodilators, maintained on Solu-Medrol, maintained on Lo venox for DVT prophylaxis. On 08/31/2024, the patient is being seen for a follow-up. Patient remains intubated on mechanical ventilator. This morning, he is on propofol running at 40 mcg/kg/min and is also on fentanyl drip at 0.5 mcg/kg/h. Calm and comfortable and synchronous on mechanical ventilator. He remains on assist- control mode of mechanical ventilation at the rate of 14, tidal volume of 450, FiO2 of 40% with a PEEP of 5. Blood gas showed a pH of 7.42 with a pCO2 of 76 and pO2 68. IV fluids are KVO and the patient is eating vital high-protein at rate of 20 cc an hour. Afebrile. Hemodynamically stable. CAT scan of the chest was completed yesterday and it shows diffuse emphysematous changes bilaterally. No evidence of any fibrosis although there is some interlobular septal thickening with scattered pulmonary nodularity specially along the pleural lining. There is also subcentimeter pulmonary nodules and consolidation in the right lung base with a small right-sided pleural effusion. He is having mild to moderate amount of secretions. Based on that, I performed a bron choscopy on this patient and a total of 20 cc of purulent respiratory secretions were suctioned out and following that the bronchoalveolar lavage of the right lower lobe was done. The white cell count is 14.7 with a hemoglobin 10.6 and a platelet count of 262. Sodium is at 140, potassium is at 3.2, bicarb is at 46 and rest of the electrolytes are essentially within normal limits. The procalcitonin level was at 0.07 the time of admission. On 09/01/2024, the patient is being seen for a follow-up. This morning, the patient is off propofol and the patient is awake and alert and communicating. Following simple commands. He seems to be quite comfortable. He is still on the mechanical ventilator assist-control mode rate of 14, tidal volume of 450, FiO2 50% with a PEEP of 5. Blood gas showed a pH of 7.47 with pCO2 65 and pO2 of 76. Chest x-ray findings are essentially unchanged and the patient has diffuse interstitial changes bilaterally which remains essentially unchanged and there is improved multifocal opacities compared to yesterday's chest x-ray. There is also trace bilateral pleural effusions. The patient is on normal citrate of 75 cc an hour. Fluid balance is positive and over the past 24 hours, the patient has had a positive fluid balance of 1.9 L. He is receiving vital HP at rate of 20 cc an hour. Peak y and static airway pressures are not elevated. The white cell count is at 9 with a heme of 10.7 and a platelet count of 254. Sodium is at 139, BUN 25 with a creatinine of 0.55 and a potassium level is at 3.9. Bronchoscopy endobronchial lavage was done and awaiting final cultures. The sputum sample that was collected at 08/29/2024 showing stenotrophomonas and E. coli and corynebacterium. The bronchial lavage collected on 08/31/2024 showing presumptive staph aureus. The patient remains on IV Rocephin for now. On 09/02/2024, the patient is awake and alert and the patient is currently on 2 L of oxygen by nasal cannula. The patient was extubated on 09/01/2024 without any complications. Noted his sputum analysis showed stenotrophomonas and E. coli and Corynebacterium and the bronchoalveolar lavage showed MRSA. The patient is currently on Bactrim. Vancomycin was also added. Doing well. No specific complaints. No significant respiratory secretions. Remains on bronchodilators. Remains on Lovenox for DVT prophylaxis. Remains on IV Solu-Medrol. Blood work from today shows a white cell count of 9.7, hemoglobin 12 and a platelet count of 269. Sodium is at 138, potassium is at 3.8, bicarb is at 45 with a BUN of 16 and a creatinine of 0.6. Awake and alert and communicating. Tolerating diet. On 09/03/2024, the patient is being seen for a follow-up. The patient is doing well. Calm and comfortable. No respite distress. Transferred out of the intensive care unit yesterday. He has MRSA in his BAL and stenotrophomonas in the sputum and the patient is currently on a combination of Bactrim and vancomycin. Remains on bronchodilators. Remains on steroids. Remains on oxygen and the patient is currently on 2 L nasal cannula with a pulse ox of 95%. Labs from yesterday were noted. No new labs are available from today. No altered mentation. No chest pain. Tolerating diet and hemodynamically stable. On 09/04/2024, the patient is being seen for a follow-up. Doing well. No significant shortness of breath. No significant chest pain. No altered mentation. Afebrile. Remains on vancomycin and Bactrim. Remains on oxygen wit h 2 L cannula positively with a pulse ox of 95%.. Labs from today shows white cell count of 13.7, hemoglobin 13 and a platelet count of 271. Patient also has a sodium level of 136, BUN 17 with a creatinine of 0.5. Serum bicarb is at 38. Vancomycin levels are 15. On 09/05/2024, the patient is stable without any worsening in respiratory status. Remains on 2 L of oxygen by nasal cannula. Remains on a combination of Bactrim and vancomycin. Remains on DuoNeb updrafts 4 times a day and the patient is also on a combination performance of Pulmicort nebulized treatments twice a day. Start on prednisone burst taper and IV Solu-Medrol has been discontinued. Remains on Lovenox for DVT prophylaxis. No new labs from today. No altered mentation. No chest pain. No pleurisy. No hemoptysis. The patient is seen today September 06, 2024 in follow-up on the selective care unit. He is currently sitting up in a chair at the bedside. Awake and alert in no acute distress. Maintaining O2 saturations in the 90s on 3 L/min per nasal cannula. He denies any worsening shortness of breath, cough or congestion. White count 14.0. Hemoglobin 13.6. Platelets 274. Sodium 136. Potassium 4.3. Bicarb 45. BUN 14. Creatinine 0.5. Glucose 114. He remains on DuoNeb inhalations, Pulmicort and performance inhalations, prednisone taper. Lovenox for DVT prophylaxis. Remains on vancomycin and Bactrim. Objective - Vital Signs Vital signs: Vital Signs Temp 98.1 F 09/06/24 15:50 Pulse 80 09/06/24 16:37 Resp 18 09/06/24 15:50 BP 130/70 09/06/24 15:50 Pulse Ox 90 L 09/06/24 15:50 FiO2 40 09/01/24 10:20 Intake & Output 09/05/24 09/06/24 09/06/24 18:59 06:59 18:59 Intake Total 630 480 Output Total 700 200 525 Balance -70 -200 -45 Weight 85.4 kg Intake: IV 30 Invasive Line 4 30 Oral 600 480 Output: Urine 700 200 525 Other: Voiding Method Urinal Urinal # Voids 2 # Bowel Movements 1 ABP, PAP, CO, CI - Last Documented Arterial Blood Pressure 92/74 - Exam GENERAL EXAM: Alert, disheveled 54-year-old male patient on 3 L nasal cannula, comfortable in no apparent distress. HEAD: Normocephalic. EYES: Normal reaction of pupils, equal size. NOSE: Clear with pink turbinates. THROAT: No erythema or exudates. NECK: No masses, no JVD. CHEST: No chest wall deformity. LUNGS: Equal air entry with few scattered rhonchi. CVS: S1 and S2 normal with no audible murmur, regular rhythm. ABDOMEN: No hepatosplenomegaly, normal bowel sounds, no guarding or rigidity. SPINE: No scoliosis or deformity SKIN: No rashes CENTRAL NERVOUS SYSTEM: No focal deficits, tone is normal in all 4 extremities. EXTREMITIES: There is no peripheral edema. No clubbing, no cyanosis. Peripheral pulses are intact. - Labs CBC & Chem 7: 09/06/24 05:57 09/06/24 05:57 Labs: Abnormal Lab Results - Last 24 Hours (Table) 09/05/24 09/06/24 09/06/24 Range/Units 20:02 05:50 05:57 WBC 14.0 H (3.8-10.6) k/uL MCHC 30.8 L (31.0-37.0) g/dL Neutrophils # 10.5 H (1.3-7.7) k/uL Monocytes # 1.3 H (0-1.0) k/uL Sodium (137-145) mmol/L Chloride (98-107) mmol/L Carbon Dioxide (22-30) mmol/L Creatinine (0.66-1.25) mg/dL POC Glucose (mg/dL) 150 H 114 H (70-110) mg/dL Calcium (8.4-10.2) mg/dL Alkaline Phosphatase (38-126) U/L Total Protein (6.3-8.2) g/dL Albumin (3.5-5.0) g/dL 09/06/24 09/06/24 Range/Units 05:57 16:28 WBC (3.8-10.6) k/uL MCHC (31.0-37.0) g/dL Neutrophils # (1.3-7.7) k/uL Monocytes # (0-1.0) k/uL Sodium 136 L (137-145) mmol/L Chloride 89 L (98-107) mmol/L Carbon Dioxide 45 H* (22-30) mmol/L Creatinine 0.50 L (0.66-1.25) mg/dL POC Glucose (mg/dL) 126 H (70-110) mg/dL Calcium 8.2 L (8.4-10.2) mg/dL Alkaline Phosphatase 31 L (38-126) U/L Total Protein 5.7 L (6.3-8.2) g/dL Albumin 3.1 L (3.5-5.0) g/dL Assessment and Plan Assessment: Acute hypoxemic respiratory failure, secondary to COPD exacerbation. Extubated on 09/01/2024. Sputum is positive, polymicrobial growth in the bronchial lavage showing MRSA. The sputum sample also showed stenotrophomonas and the patient is currently on a combination of vancomycin and Bactrim. Patient is currently on 2 L of oxygen by nasal cannula. Right lower lobe consolidation/pneumonia. Procalcitonin level is within normal limits. Respiratory secretions are abundant and the patient underwent a bronchoscopy and therapeutic airway suctioning and a bronchioloalveolar lavage of the right lower lobe. The sputum sample showed stenotrophomonas and E. coli and corynebacterium. The bronchoalveolar lavage collected on 08/31/2024 showing MRSA. Afebrile. Hemodynamically stable on no pressors. The patient is currently on a combination of Bactrim and vancomycin. Acute on chronic hypoxic/hypercapnic respiratory failure, currently extubated on 09/01/2024 the patient is acid-base status seems to be compensated at this point in time. Oxygenation is also stable. The patient is currently on 2 L of oxygen by nasal cannula Chronic pleural nodularities and thickening in addition to old right-sided rib fractures. Advanced COPD, maintained on Trelegy Ellipta and DuoNeb updrafts on outpatient basis. Baseline pulmonary function test is not known. Hypertension Hyperlipidemia Obstructive sleep apnea Plan: The patient was seen and evaluated Labs and medications reviewed Antibiotics per ID service Stable and on 3 L nasal cannula May require home oxygen Complete a prednisone taper He does have DuoNebs and Trelegy at home Continues on Lovenox for DVT prophylaxis Possible discharge in the a.m. We will continue to follow I have personally seen and examined the patient, performed the documentation and the assessment and plan as written. Number of minutes spent on the visit: 10 Dictation was produced using [employer] dictation software. Please excuse any grammatical, word or spelling errors.
[2024-09-06 20:32] LABS: Glucose,Whole Blood 146 mg/dL (70-110)
--- NOTE | 2024-09-06 21:18 | P.PN ---
Subjective This is a pleasant 53 years old male with past medical history of multiple medical problems as below including COPD He was transferred from outside facility already intubated. He is on mechanical ventilation Patient was transferred from [facility]. He presents there because of respiratory distress for 2 days duration associated with dyspnea. He was hypoxic saturating in 70s on room air. In view of his history of COPD and CT of the chest without contrast showing diffuse bilateral airspace opacities with increased pleural thickening and fluid per report findings are suspicious for multifocal pneumonia. Patient was hypotensive and tachycardic. His ABG prior to transfer showing pH is low 7.18 and CO2 is elevated 136. Currently patient cannot provide information. His vitals look stable and afebrile CBC, LFTs are unremarkable as well as metabolic panel with BMP except for elevated carbon dioxide at 44. Troponin is negative Urine analysis suspicious for infection D-dimer is negative at 0.56 pH here is 7.4 and CO2 is 70. Lactic acid is only 2.2 came down to 1.2. proBNP is 857 Chest x-ray showing persistent multiple airspace opacity with multiple right rib fracture 08/30 Patient still intubated and sedated on mechanical ventilation. FiO2 50% and PEEP of 8, tidal volume 450 mL His vitals looks very stable He was little agitated earlier with coughing and shaking requiring one-time dose of Ativan 08/31 Patient is still intubated requiring mechanical ventilation Patient with no fever and vitals with stable blood pressure and heart rate since admission. WBC went up from 7.8-14.7 while he is on steroids. pH 7.4 and pCO2 is high 76. Sodium 140, potassium 3.2. Creatinine normal. Glucose controlled. Currently kept on IV Solu-Medrol and ceftriaxone and Zithromax Patient had CT of the chest showing no honeycombing but pulmonary edema superimposed on bacterial infection Eliquis pulmonary nodules throughout the lungs bilaterally mainly in the lower lung. 09/06 Resuming the care of the patient today on 09/06 Patient looks tired, still has some tachypnea and shortness of breath He is saturating 90 to 99% on 3 to 4 L via nasal cannula He remains on IV vancomycin and Bactrim for MRSA found in his BAL related to his bilateral pneumonia more on the right side than the left side. Is also has evidence of Ness bacteremia and covered with nystatin. He is currently also on taper prednisone. He is generally weak and he may benefit from home health care upon discharge per PT/OT recommendation Objective - Vital Signs Vital signs: Vital Signs Temp 97.9 F 09/06/24 08:00 Pulse 72 09/06/24 12:00 Resp 18 09/06/24 12:00 BP 170/78 09/06/24 12:00 Pulse Ox 99 09/06/24 12:00 FiO2 40 09/01/24 10:20 Intake & Output 09/05/24 09/06/24 09/06/24 18:59 06:59 18:59 Intake Total 630 480 Output Total 700 200 275 Balance -70 -200 205 Weight 85.4 kg Intake: IV 30 Invasive Line 4 30 Oral 600 480 Output: Urine 700 200 275 Other: Voiding Method Urinal Urinal # Voids 2 # Bowel Movements 1 ABP, PAP, CO, CI - Last Documented Arterial Blood Pressure 92/74 - Exam -GENERAL: The patient is intubated and sedated HEENT: Pupils are round and equally reacting to light. EOMI. No scleral icterus. No conjunctival pallor. Normocephalic, atraumatic. No pharyngeal erythema. No thyromegaly. CARDIOVASCULAR: S1 and S2 present. No murmurs, rubs, or gallops. PULMONARY: Chest is clear to auscultation, no wheezing , no crackles. ABDOMEN: Soft, nontender, nondistended, normoactive bowel sounds. No palpable organomegaly. MUSCULOSKELETAL: No joint swelling or deformity. EXTREMITIES: No cyanosis, clubbing, or pedal edema. NEUROLOGICAL: Gross neurological examination did not reveal any focal deficits. SKIN: No rashes. no petechiae. - Labs CBC & Chem 7: 09/06/24 05:57 09/06/24 05:57 Labs: Abnormal Lab Results - Last 24 Hours (Table) 09/05/24 09/05/24 09/06/24 Range/Units 16:05 20:02 05:50 WBC (3.8-10.6) k/uL MCHC (31.0-37.0) g/dL Neutrophils # (1.3-7.7) k/uL Monocytes # (0-1.0) k/uL Sodium (137-145) mmol/L Chloride (98-107) mmol/L Carbon Dioxide (22-30) mmol/L Creatinine (0.66-1.25) mg/dL POC Glucose (mg/dL) 115 H 150 H 114 H (70-110) mg/dL Calcium (8.4-10.2) mg/dL Alkaline Phosphatase (38-126) U/L Total Protein (6.3-8.2) g/dL Albumin (3.5-5.0) g/dL 09/06/24 09/06/24 Range/Units 05:57 05:57 WBC 14.0 H (3.8-10.6) k/uL MCHC 30.8 L (31.0-37.0) g/dL Neutrophils # 10.5 H (1.3-7.7) k/uL Monocytes # 1.3 H (0-1.0) k/uL Sodium 136 L (137-145) mmol/L Chloride 89 L (98-107) mmol/L Carbon Dioxide 45 H* (22-30) mmol/L Creatinine 0.50 L (0.66-1.25) mg/dL POC Glucose (mg/dL) (70-110) mg/dL Calcium 8.2 L (8.4-10.2) mg/dL Alkaline Phosphatase 31 L (38-126) U/L Total Protein 5.7 L (6.3-8.2) g/dL Albumin 3.1 L (3.5-5.0) g/dL Assessment and Plan Assessment: Acute hypoxic hypercapnic respiratory failure s/p intubation and mechanical ve ntilation Bilateral multifocal pneumonia Acute COPD exacerbation bilateral pulmonary nodules throughout both lungs more on the lower zones Possible acute urinary tract infection Multiple right-sided rib fracture Respiratory acidosis, acute Plan: Continue with IV vancomycin and Bactrim Continue with nystatin Continue with prednisone taper Pulmonary/team following closely Continue with oxygen therapy Labs and medication were reviewed.. Continue same treatment. Continue with symptomatic treatment. Resume home medication. Monitor labs and vitals. DVT and GI prophylaxis. Further recommendations as per clinical course of the patient DVT prophylaxis: Subcutaneous h Lovenox GI Prophylaxis: Protonix Prognosis is guarded
[2024-09-07 06:27] LABS: Glucose,Whole Blood 80 mg/dL (70-110)
[2024-09-07 07:20] LABS: African American GFR (CKD) >90 (>60 ml/min/1.73 sqM); Non-African American GFR(CKD) >90 (>60 ml/min/1.73 sqM)
[2024-09-07] MEDS: VANCOMYCIN TROUGH DUE 1 EACH MISC MISCELLANE ONE (07:34)
[2024-09-07 11:48] LABS: Glucose,Whole Blood 103 mg/dL (70-110)
--- NOTE | 2024-09-07 12:14 | XR ---
EXAMINATION TYPE: XR chest 1V portable DATE OF EXAM: 09/07/2024 11:23 AM COMPARISON: None. CLINICAL INDICATION: Male, 54 years old with history of Pneumonia, TECHNIQUE: XR chest 1V portable view(s) obtained. FINDINGS: The heart size is normal. The pulmonary vasculature is normal. Patchy diffuse bilateral lung infiltrates are present. This may be slightly improved over the interva l. Correlate for pulmonary edema and atypical pneumonia. Left central venous catheter is in place with tip in the proximal right atrium. IMPRESSION: 1. Diffuse patchy infiltrates present bilaterally. Correlate for atypical pneumonia and pulmonary margarito hay. [facility], , 09/07/2024 12:12 PM
[2024-09-07] MEDS: HYDROcodone/APAP 5-325MG 1 EACH TAB PO STA (13:45)
--- NOTE | 2024-09-07 15:53 | P.PN ---
Subjective Progress Note Date: 09/07/24 Principal diagnosis: Acute hypoxic respiratory failure secondary to acute exacerbation of COPD and acute right lower lobe pneumonia 53-year-old male who was transferred down, by EMS, from an outside hospital, with respiratory failure. The patient apparently has a history of severe COPD, and the patient was intubated, at the outside hospital, after he failed BiPAP. Apparently his PaCO2 on blood gas was 137. The patient is seen today in the emergency department, trauma room 2. His vent settings include volume assist- control, rate 14, tidal volume 450, FiO2 50%, and PEEP of 5. The patient is getting propofol at 25 mcg/kg/min. He apparently has a history of COPD, and sleep apnea, and apparently is noncompliant with medications. No other history is available other than the fact that he has COPD and sleep apnea. Home medications apparently include Trelegy, saline nasal rinse, vitamins, metoprolol, updrafts, with ipratropium bromide and albuterol, Motrin, Flonase nasal spray, Flexeril, Lipitor, aspirin, amlodipine, albuterol inhaler, and Tylenol. Based on these medications it appears in addition to COPD, the patient has a history of gastroesophageal reflux disease, hyperlipidemia, and hypertension. Current laboratory data includes a white count 8.3, hemoglobin 13.2, hematocrit 40.2, and a platelet count 239,000. Blood gases show pO2 of 256, pCO2 of 70, and a pH of 7.44. Bicarbonate concentration on the blood gas was 47, on the electrolyte profile was 44. Sodium 139, potassium 3.9, chloride 87, CO2 44, BUN 19, and creatinine 0.79. Lactic acid was 2.2. Glucose 125. The rest of the CMP looks relatively normal. Viral screen was negative. Chest x-ray shows bilateral airspace opacities, which could be consistent with pneumonia. 08/30/2024, the patient is being seen for a follow-up. The patient has severe COPD and she was intubated in outside hospital after she failed BiPAP and the patient was transferred to us for further care. No further information is available regarding his baseline respiratory status. To my knowledge, the patient has been maintained on Trelegy Ellipta on an outpatient basis in addition to DuoNeb updrafts [id number]. At this point in time, the patient is intubated on the mechanical ventilator and the chest x-ray is showing diffuse bilateral pulmonary infiltrates. This is consistent with multifocal air space disease. Underlying ILD cannot be completely ruled out. This morning, the patient is on propofol running at 50 mcg/kg/min. He is on assist-control mode of mechanical ventilation at rate of 20, tidal volume of 450, FiO2 40% with a PEEP of 5. Blood gas showed pH of 7.42 with a pCO2 of 71 and pO2 of 133. His peak airway pressure is at 31. Limited crackles and wheezing on today's examination. Cardiac rhythm is sinus. Remains on IV Rocephin and Zithromax. White cell count of 7.8 with him of 10.9 and a platelet count of 242. Sodium is at 138, potassium is at 3.3, bicarb is at 44, BUN is 19 with a creatinine of 0.74. The patient has a proBNP level of 857. Procalcitonin level is at 0.07. Lactic acid level is at 1.2. He is well sedated, calm and comfortable, maintained on wound bronchodilators, maintained on Solu-Medrol, maintained on Lovenox for DVT prophylaxis. On 08/31/2024, the patient is being seen for a follow-up. Patient remains intubated on mechanical ventilator. This morning, he is on propofol running at 40 mcg/kg/min and is also on fentanyl drip at 0.5 mcg/kg/h. Calm and comfortable and synchronous on mechanical ventilator. He remains on assist- control mode of mechanical ventilation at the rate of 14, tidal volume of 450, FiO2 of 40% with a PEEP of 5. Blood gas showed a pH of 7.42 with a pCO2 of 76 and pO2 68. IV fluids are KVO and the patient is eating vital high-protein at rate of 20 cc an hour. Afebrile. Hemodynamically stable. CAT scan of the chest was completed yesterday and it shows diffuse emphysematous changes bilaterally. No evidence of any fibrosis although there is some interlobular septal thickening with scattered pulmonary nodularity specially along the pleural lining. There is also subcentimeter pulmonary nodules and consolidation in the right lung base with a small right-sided pleural effusion. He is having mild to moderate amount of secretions. Based on that, I performed a bronchoscopy on this patient and a total of 20 cc of purulent respiratory secretions were suctioned out and following that the bronchoalveolar lavage of the right lower lobe was done. The white cell count is 14.7 with a hemoglobin 10.6 and a platelet count of 262. Sodium is at 140, potassium is at 3.2, bicarb is at 46 and rest of the electrolytes are essentially within normal limits. The procalcitonin level was at 0.07 the time of admission. On 09/01/2024, the patient is being seen for a follow-up. This morning, the patient is off propofol and the patient is awake and alert and communicating. Following simple commands. He seems to be quite comfortable. He is still on the mechanical ventilator assist-control mode rate of 14, tidal volume of 450, FiO2 50% with a PEEP of 5. Blood gas showed a pH of 7.47 with pCO2 65 and pO2 of 76. Chest x-ray findings are essentially unchanged and the patient has diffuse interstitial changes bilaterally which remains essentially unchanged and there is improved multifocal opacities compared to yesterday's chest x-ray. There is also trace bilateral pleural effusions. The patient is on normal citrate of 75 cc an hour. Fluid balance is positive and over the past 24 hours, the patient has had a positive fluid balance of 1.9 L. He is receiving vital HP at rate of 20 cc an hour. Peak y and static airway pressures are not elevated. The white cell count is at 9 with a heme of 10.7 and a platelet count of 254. Sodium is at 139, BUN 25 with a creatinine of 0.55 and a potassium level is at 3.9. Bronchoscopy endobronchial lavage was done and awaiting final cultures. The sputum sample that was collected at 08/29/2024 showing stenotrophomonas and E. coli and corynebacterium. The bronchial lavage collected on 08/31/2024 showing presumptive staph aureus. The patient remains on IV Rocephin for now. On 09/02/2024, the patient is awake and alert and the patient is currently on 2 L of oxygen by nasal cannula. The patient was extubated on 09/01/2024 without any complications. Noted his sputum analysis showed stenotrophomonas and E. coli and Corynebacterium and the bronchoalveolar lavage showed MRSA. The patient is currently on Bactrim. Vancomycin was also added. Doing well. No specific complaints. No significant respiratory secretions. Remains on bronchodilators. Remains on Lovenox for DVT prophylaxis. Remains on IV Solu-Medrol. Blood work from today shows a white cell count of 9.7, hemoglobin 12 and a platelet count of 269. Sodium is at 138, potassium is at 3.8, bicarb is at 45 with a BUN of 16 and a creatinine of 0.6. Awake and alert and communicating. Tolerating diet. On 09/03/2024, the patient is being seen for a follow-up. The patient is doing well. Calm and comfortable. No respite distress. Transferred out of the intensive care unit yesterday. He has MRSA in his BAL and stenotrophomonas in the sputum and the patient is currently on a combination of Bactrim and vancomycin. Remains on bronchodilators. Remains on steroids. Remains on oxyge n and the patient is currently on 2 L nasal cannula with a pulse ox of 95%. Labs from yesterday were noted. No new labs are available from today. No altered mentation. No chest pain. Tolerating diet and hemodynamically stable. On 09/04/2024, the patient is being seen for a follow-up. Doing well. No significant shortness of breath. No significant chest pain. No altered mentation. Afebrile. Remains on vancomycin and Bactrim. Remains on oxygen with 2 L cannula positively with a pulse ox of 95%.. Labs from today shows white cell count of 13.7, hemoglobin 13 and a platelet count of 271. Patient also has a sodium level of 136, BUN 17 with a creatinine of 0.5. Serum bicarb is at 38. Vancomycin levels are 15. On 09/05/2024, the patient is stable without any worsening in respiratory status. Remains on 2 L of oxygen by nasal cannula. Remains on a combination of Bactrim and vancomycin. Remains on DuoNeb updrafts 4 times a day and the patient is also on a combination performance of Pulmicort nebulized treatments twice a day. Start on prednisone burst taper and IV Solu-Medrol has been discontinued. Remains on Lovenox for DVT prophylaxis. No new labs from today. No altered mentation. No chest pain. No pleurisy. No hemoptysis. The patient is seen today September 06, 2024 in follow-up on the selective care unit. He is currently sitting up in a chair at the bedside. Awake and alert in no acute distress. Maintaining O2 saturations in the 90s on 3 L/min per nasal c annula. He denies any worsening shortness of breath, cough or congestion. White count 14.0. Hemoglobin 13.6. Platelets 274. Sodium 136. Potassium 4.3. Bicarb 45. BUN 14. Creatinine 0.5. Glucose 114. He remains on DuoNeb inhalations, Pulmicort and performance inhalations, prednisone taper. Lovenox for DVT prophylaxis. Remains on vancomycin and Bactrim. patient was examined today on 09/07/2024, continues to have symptoms of cough and wheezing and congestion. Continues to require oxygen at 3 L/min, continues to have abnormal chest x-ray with bilateral infiltrates. Actually his chest x- ray today clearly showed diffuse patchy infiltrates suggestive of atypical pneumonia or pulmonary edema. Patient continues to have leukocytosis with WBC count of 14.0 hemoglobin is 13.6 electrolytes are normal bicarb is elevated at 45. Obviously the patient has chronic hypercapnic respiratory failure with metabolic compensation. Previous cultures on this patient including bronchial washings showed MRSA and Ness and he also had Stenotrophomonas maltophilia as well as E. coli and corynebacterium stratum group. This was all noted in the sputum over the last 10 days. Objective - Vital Signs Vital signs: Vital Signs Temp 98.0 F 09/07/24 11:15 Pulse 75 09/07/24 14:00 Resp 18 09/07/24 14:00 BP 111/58 09/07/24 11:15 Pulse Ox 93 L 09/07/24 13:30 FiO2 40 09/01/24 10:20 Intake & Output 09/06/24 09/07/24 09/07/24 18:59 06:59 18:59 Intake Total 720 480 Output Total 525 200 450 Balance 195 -200 30 Weight 85.4 kg Intake: Oral 720 480 Output: Urine 525 200 450 Other: Voiding Method Urinal # Voids 1 ABP, PAP, CO, CI - Last Documented Arterial Blood Pressure 92/74 - Exam GENERAL EXAM: Alert, disheveled 54-year-old male patient on 3 L nasal cannula, not in distress, however he is noted to be dyspneic with any conversation. HEAD: Normocephalic. EYES: Normal reaction of pupils, equal size. NOSE: Clear with pink turbinates. THROAT: No erythema or exudates. NECK: No masses, no JVD. CHEST: No chest wall deformity. LUNGS: Rhonchi and crackles noted bilaterally CVS: S1 and S2 normal with no audible murmur, regular rhythm. ABDOMEN: No hepatosplenomegaly, normal bowel sounds, no guarding or rigidity. SKIN: No rashes CENTRAL NERVOUS SYSTEM: Alert and oriented x 3 no focal deficit EXTREMITIES: No clubbing edema or cyanosis - Labs CBC & Chem 7: 09/06/24 05:57 09/07/24 06:17 Labs: Abnormal Lab Results - Last 24 Hours (Table) 09/06/24 09/06/24 09/07/24 Range/Units 16:28 20:30 06:17 Creatinine 0.51 L (0.66-1.25) mg/dL POC Glucose (mg/dL) 126 H 146 H (70-110) mg/dL Assessment and Plan Assessment: Impression: Acute hypoxemic respiratory failure, secondary to COPD exacerbation. Extubated on 09/01/2024. Sputum is positive, polymicrobial growth in the bronchial lavage showing MRSA. The sputum sample also showed stenotrophomonas and the patient is currently on a combination of vancomycin and Bactrim. Patient is currently on 2 L of oxygen by nasal cannula. Bilateral pneumonia, chest x-ray continues show bilateral infiltrates/pneumonia Acute on chronic hypoxic/hypercapnic respiratory failure Chronic pleural nodularities and thickening in addition to old right-sided rib fractures. Advanced COPD, maintained on Trelegy Ellipta and DuoNeb updrafts on outpatient basis. Baseline pulmonary function test is not known. Hypertension Hyperlipidemia Obstructive sleep apnea Recommendation: Continue antibiotics as per ID service Continue steroids and taper prednisone Continue DuoNeb and bronchodilators Continue GI DVT prophylaxis Based on chest x-ray findings and based on clinical findings I do not believe the patient is ready for discharge. Patient remains relatively ill and I believe best to wait on discharge planning Will continue to follow Time with Patient: Less than 30
[2024-09-07 16:49] LABS: Glucose,Whole Blood 139 mg/dL (70-110)
--- NOTE | 2024-09-07 16:56 | P.PN ---
Subjective Progress Note Date: 09/07/24 Principal diagnosis: Reason for follow-up is pneumonia MRSA Patient is a 54-year-old male with a past medical history significant for COPD sleep apnea initially presented to the outside facility with acute respiratory failure, patient did require intubation did have evidence of multifocal pneumonia sputum culture positive for stenotrophomonas bronchial wash positive for MRSA and corynebacterium prompting this consultation. On today's evaluation that is 09/07/2024, Patient is afebrile this morning patient denies having any chest pain breathing more comfortably did have a cough but no worsening sputum production no nausea vomiting no abdominal pain or diarrhea currently on 3 L nasal cannula oxygen. The patient did have a creatinine 0.5 and Vanco trough is 14.6 Objective - Vital Signs Vital signs: Vital Signs Temp 98.0 F 09/07/24 11:15 Pulse 75 09/07/24 14:00 Resp 18 09/07/24 14:00 BP 111/58 09/07/24 11:15 Pulse Ox 93 L 09/07/24 13:30 FiO2 40 09/01/24 10:20 Intake & Output 09/06/24 09/07/24 09/07/24 18:59 06:59 18:59 Intake Total 720 480 Output Total 242 872 5828 Balance 195 -200 -770 Weight 85.4 kg Intake: Oral 720 480 Output: Urine 312 471 0168 Other: Voiding Method Urinal # Voids 1 # Bowel Movements 1 ABP, PAP, CO, CI - Last Documented Arterial Blood Pressure 92/74 - Exam GENERAL DESCRIPTION: Middle-age male lying in bed in no distress RESPIRATORY SYSTEM: Unlabored breathing , decreased breath sounds at bases HEART: S1 S2 regular rate and rhythm , ABDOMEN: Soft , no tenderness EXTREMITIES: Left upper extremity with the wound but no cellulitis - Labs CBC & Chem 7: 09/06/24 05:57 09/07/24 06:17 Labs: Abnormal Lab Results - Last 24 Hours (Table) 09/06/24 09/07/24 09/07/24 Range/Units 20:30 06:17 16:48 Creatinine 0.51 L (0.66-1.25) mg/dL POC Glucose (mg/dL) 146 H 139 H (70-110) mg/dL Assessment and Plan (1) MRSA (methicillin resistant staph aureus) culture positive Current Visit: Yes Status: Acute Code(s): Z22.322 - CARRIER OR SUSPECTED CARRIER OF METHICILLIN RESIS STAPH SNOMED Code(s): 435852851 (2) Penicillin allergy Current Visit: Yes Status: Acute Code(s): Z88.0 - ALLERGY STATUS TO PENICILLIN SNOMED Code(s): 31141801 (3) Pneumonia Current Visit: Yes Status: Acute Code(s): J18.9 - PNEUMONIA, UNSPECIFIED ORGANISM SNOMED Code(s): 336043134 (4) Wound of left upper extremity Current Visit: Yes Status: Acute Code(s): S41.102A - UNSPECIFIED OPEN WOUND OF LEFT UPPER ARM, INITIAL ENCOUNTER SNOMED Code(s): 822166062 (5) Thrush Current Visit: Yes Status: Acute Code(s): B37.0 - CANDIDAL STOMATITIS SNOMED Code(s): 15515281 Plan: 1patient presented to hospital with acute respiratory failure requiring intubation and subsequently has been extubated, etiology is multifactorial likely with a component of pneumonia, on 09/01/2024 patient sputum culture positive for stenotrophomonas E. coli with a BAL culture now showing MRSA and corynebacterium 2-penicillin allergy that will limit the number of antibiotics safe to use 3-patient to continue with vancomycin pharmacy to dose creatinine and Vanco trough for therapeutic plan will be for oral Bactrim DS on discharge Dictation was produced using [employer] dictation software. please excuse any grammatical, word or spelling errors. Time with Patient: Less than 30
[2024-09-07 20:09] LABS: Glucose,Whole Blood 155 mg/dL (70-110)
--- NOTE | 2024-09-07 21:57 | P.PN ---
Subjective This is a pleasant 53 years old male with past medical history of multiple medical problems as below including COPD He was transferred from outside facility already intubated. He is on mechanical ventilation Patient was transferred from [facility]. He presents there because of respiratory distress for 2 days duration associated with dyspnea. He was hypoxic saturating in 70s on room air. In view of his history of COPD and CT of the chest without contrast showing diffuse bilateral airspace opacities with increased pleural thickening and fluid per report findings are suspicious for multifocal pneumonia. Patient was hypotensive and tachycardic. His ABG prior to transfer showing pH is low 7.18 and CO2 is elevated 136. Currently patient cannot provide information. His vitals look stable and afebrile CBC, LFTs are unremarkable as well as metabolic panel with BMP except for elevated carbon dioxide at 44. Troponin is negative Urine analysis suspicious for infection D-dimer is negative at 0.56 pH here is 7.4 and CO2 is 70. Lactic acid is only 2.2 came down to 1.2. proBNP is 857 Chest x-ray showing persistent multiple airspace opacity with multiple right rib fracture 08/30 Patient still intubated and sedated on mechanical ventilation. FiO2 50% and PEEP of 8, tidal volume 450 mL His vitals looks very stable He was little agitated earlier with coughing and shaking requiring one-time dose of Ativan 08/31 Patient is still intubated requiring mechanical ventilation Patient with no fever and vitals with stable blood pressure and heart rate since admission. WBC went up from 7.8-14.7 while he is on steroids. pH 7.4 and pCO2 is high 76. Sodium 140, potassium 3.2. Creatinine normal. Glucose controlled. Currently kept on IV Solu-Medrol and ceftriaxone and Zithromax Patient had CT of the chest showing no honeycombing but pulmonary edema superimposed on bacterial infection Eliquis pulmonary nodules throughout the lungs bilaterally mainly in the lower lung. 09/06 Resuming the care of the patient today on 09/06 Patient looks tired, still has some tachypnea and shortness of breath He is saturating 90 to 99% on 3 to 4 L via nasal cannula He remains on IV vancomycin and Bactrim for MRSA found in his BAL related to his bilateral pneumonia more on the right side than the left side. Is also has evidence of Ness bacteremia and covered with nystatin. He is currently also on taper prednisone. He is generally weak and he may benefit from home health care upon discharge per PT/OT recommendation 09/07 Patient continued to have some dyspnea and tachypnea. He still requires 3 L of oxygen via nasal cannula Repeat chest x-ray from today showing bilateral infiltrate which is suspicious for fluid versus atypical infection. Per pulmonary team recommendation. Remains on antibiotics with IV vancomycin, oral Bactrim and nystatin Also patient was complaining from mild upper abdominal pain although he tolerat es diet, Shohola was given for him with close monitoring. He is also on prednisone 40 mg with mild leukocytosis Objective - Vital Signs Vital signs: Vital Signs Temp 97.8 F 09/07/24 16:00 Pulse 75 09/07/24 16:00 Resp 18 09/07/24 16:00 BP 132/68 09/07/24 16:00 Pulse Ox 99 09/07/24 16:00 FiO2 40 09/01/24 10:20 Intake & Output 09/06/24 09/07/24 09/07/24 18:59 06:59 18:59 Intake Total 720 480 Output Total 665 890 3517 Balance 195 -200 -770 Weight 85.4 kg Intake: Oral 720 480 Output: Urine 142 964 0775 Other: Voiding Method Urinal # Voids 1 # Bowel Movements 1 ABP, PAP, CO, CI - Last Documented Arterial Blood Pressure 92/74 - Exam -GENERAL: The patient is intubated and sedated HEENT: Pupils are round and equally reacting to light. EOMI. No scleral icterus. No conjunctival pallor. Normocephalic, atraumatic. No pharyngeal erythema. No thyromegaly. CARDIOVASCULAR: S1 and S2 present. No murmurs, rubs, or gallops. PULMONARY: Chest is clear to auscultation, no wheezing , no crackles. ABDOMEN: Soft, nontender, nondistended, normoactive bowel sounds. No palpable organomegaly. MUSCULOSKELETAL: No joint swelling or deformity. EXTREMITIES: No cyanosis, clubbing, or pedal edema. NEUROLOGICAL: Gross neurological examination did not reveal any focal deficits. SKIN: No rashes. no petechiae. - Labs CBC & Chem 7: 09/06/24 05:57 09/07/24 06:17 Labs: Abnormal Lab Results - Last 24 Hours (Table) 02/24/25 02/25/25 02/25/25 Range/Units 20:30 06:17 16:48 Creatinine 0.51 L (0.66-1.25) mg/dL POC Glucose (mg/dL) 146 H 139 H (70-110) mg/dL Assessment and Plan Assessment: Acute hypoxic hypercapnic respiratory failure s/p intubation and mechanical ventilation Bilateral multifocal pneumonia Acute COPD exacerbation bilateral pulmonary nodules throughout both lungs more on the lower zones Possible acute urinary tract infection Multiple right-sided rib fracture Respiratory acidosis, acute Plan: Continue with IV vancomycin and Bactrim Continue with nystatin Continue with prednisone taper Pulmonary/team following closely Continue with oxygen therapy Labs and medication were reviewed.. Continue same treatment. Continue with symptomatic treatment. Resume home medication. Monitor labs and vitals. DVT and GI prophylaxis. Further recommendations as per clinical course of the patient DVT prophylaxis: Subcutaneous h Lovenox GI Prophylaxis: Protonix Prognosis is guarded
[2024-09-08 05:53] LABS: Glucose,Whole Blood 81 mg/dL (70-110)
[2024-09-08 11:26] LABS: Glucose,Whole Blood 225 mg/dL (70-110)
--- NOTE | 2024-09-08 16:14 | P.PN ---
Subjective Progress Note Date: 09/08/24 Principal diagnosis: Reason for follow-up is pneumonia MRSA Patient is a 54-year-old male with a past medical history significant for COPD sleep apnea initially presented to the outside facility with acute respiratory failure, patient did require intubation did have evidence of multifocal pneumonia sputum culture positive for stenotrophomonas bronchial wash positive for MRSA and corynebacterium prompting this consultation. On today's evaluation that is 09/08/2024,the patient denies any fever or any chills, patient is breathing comfortably on 3 L nasal oxygen, the patient denies chest pain shortness of breath and and cough is decreased in intensity, patient denies abdominal pain, no nausea vomiting or diarrhea. No new lab has been obtained today Objective - Vital Signs Vital signs: Vital Signs Temp 97.9 F 09/08/24 04:59 Pulse 71 09/08/24 11:58 Resp 16 09/08/24 08:00 BP 131/61 09/08/24 08:00 Pulse Ox 96 09/08/24 08:39 FiO2 40 09/01/24 10:20 Intake & Output 09/07/24 09/08/24 09/08/24 18:59 06:59 18:59 Intake Total 480 280 118 Output Total 1250 1200 500 Balance -770 920 -382 Weight 85.4 kg 79.5 kg Intake: IV 30 Invasive Line 6 20 Invasive Line 7 10 Intake, IV Titration 250 Amount Vancomycin 1,250 mg In 250 Sodium Chloride 0.9% 250 ml @ 125 mls/hr IVPB Q8H [facility] Rx#:[id number] Oral 480 118 Output: Urine 1250 1200 500 Other: Voiding Method Toilet Toilet Urinal Urinal # Voids 4 # Bowel Movements 1 ABP, PAP, CO, CI - Last Documented Arterial Blood Pressure 92/74 - Exam GENERAL DESCRIPTION: Middle-age male lying in bed in no distress RESPIRATORY SYSTEM: Unlabored breathing , decreased breath sounds at bases HEART: S1 S2 regular rate and rhythm , ABDOMEN: Soft , no tenderness EXTREMITIES: Left upper extremity with the wound but no cellulitis - Labs CBC & Chem 7: 09/06/24 05:57 09/07/24 06:17 Labs: Abnormal Lab Results - Last 24 Hours (Table) 09/07/24 09/07/24 09/08/24 Range/Units 16:48 20:07 11:25 POC Glucose (mg/dL) 139 H 155 H 225 H (70-110) mg/dL Assessment and Plan (1) MRSA (methicillin resistant staph aureus) culture positive Current Visit: Yes Status: Acute Code(s): Z22.322 - CARRIER OR SUSPECTED CARRIER OF METHICILLIN RESIS STAPH SNOMED Code(s): 846731479 (2) Penicillin allergy Current Visit: Yes Status: Acute Code(s): Z88.0 - ALLERGY STATUS TO PENICILLIN SNOMED Code(s): 60191477 (3) Pneumonia Current Visit: Yes Status: Acute Code(s): J18.9 - PNEUMONIA, UNSPECIFIED ORGANISM SNOMED Code(s): 359154882 (4) Wound of left upper extremity Current Visit: Yes Status: Acute Code(s): S41.102A - UNSPECIFIED OPEN WOUND OF LEFT UPPER ARM, INITIAL ENCOUNTER SNOMED Code(s): 634587356 (5) Thrush Current Visit: Yes Status: Acute Code(s): B37.0 - CANDIDAL STOMATITIS SNOMED Code(s): 50090190 Plan: 1patient presented to hospital with acute respiratory failure requiring intubation and subsequently has been extubated, etiology is multifactorial binh morrell with a component of pneumonia, on 09/01/2024 patient sputum culture positive for stenotrophomonas E. coli with a BAL culture now showing MRSA and corynebacterium 2-penicillin allergy that will limit the number of antibiotics safe to use 3-patient currently being treated with vancomycin pharmacy to dose creatinine and Vanco trough for therapeutic as of the last blood draw however plan will be for oral Bactrim DS on discharge, no need for IV antibiotics on discharge discussed with [employer] for admitting team Dictation was produced using [employer] [place] dictation software. please excuse any grammatical, word or spelling errors. Time with Patient: Less than 30
--- NOTE | 2024-09-08 16:33 | P.PN ---
Subjective Progress Note Date: 09/08/24 53-year-old male who was transferred down, by EMS, from an outside hospital, with respiratory failure. The patient apparently has a history of severe COPD, and the patient was intubated, at the outside hospital, after he failed BiPAP. Apparently his PaCO2 on blood gas was 137. The patient is seen today in the emergency department, trauma room 2. His vent settings include volume assist- control, rate 14, tidal volume 450, FiO2 50%, and PEEP of 5. The patient is getting propofol at 25 mcg/kg/min. He apparently has a history of COPD, and sleep apnea, and apparently is noncompliant with medications. No other history is available other than the fact that he has COPD and sleep apnea. Home medicat ions apparently include Trelegy, saline nasal rinse, vitamins, metoprolol, updrafts, with ipratropium bromide and albuterol, Motrin, Flonase nasal spray, Flexeril, Lipitor, aspirin, amlodipine, albuterol inhaler, and Tylenol. Based on these medications it appears in addition to COPD, the patient has a history of gastroesophageal reflux disease, hyperlipidemia, and hypertension. Current laboratory data includes a white count 8.3, hemoglobin 13.2, hematocrit 40.2, and a platelet count 239,000. Blood gases show pO2 of 256, pCO2 of 70, and a pH of 7.44. Bicarbonate concentration on the blood gas was 47, on the electrolyte profile was 44. Sodium 139, potassium 3.9, chloride 87, CO2 44, BUN 19, and creatinine 0.79. Lactic acid was 2.2. Glucose 125. The rest of the CMP looks relatively normal. Viral screen was negative. Chest x-ray shows bilateral airspace opacities, which could be consistent with pneumonia. 08/30/2024, the patient is being seen for a follow-up. The patient has severe COPD and she was intubated in outside hospital after she failed BiPAP and the patient was transferred to us for further care. No further information is available regarding his baseline respiratory status. To my knowledge, the patient has been maintained on Trelegy Ellipta on an outpatient basis in addition to DuoNeb updrafts [id number]. At this point in time, the patient is intubated on the mechanical ventilator and the chest x-ray is showing diffuse bilateral pulmonary infiltrates. This is consistent with multifocal airspace disease. Underlying ILD cannot be completely ruled out. This morning, the patient is on propofol running at 50 mcg/kg/min. He is on assist-control mode of mechanical ventilation at rate of 20, tidal volume of 450, FiO2 40% with a PEEP of 5. Blood gas showed pH of 7.42 with a pCO2 of 71 and pO2 of 133. His peak airway pressure is at 31. Limited crackles and wheezing on today's examination. Cardiac rhythm is sinus. Remains on IV Rocephin and Zithromax. White cell count of 7.8 with him of 10.9 and a platelet count of 242. Sodium is at 138, potassium is at 3.3, bicarb is at 44, BUN is 19 with a creatinine of 0.74. The patient has a proBNP level of 857. Procalcitonin level is at 0.07. Lactic acid level is at 1.2. He is well sedated, calm and comfortable, maintained on wound bronchodilators, maintained on Solu-Medrol, maintained on Lo venox for DVT prophylaxis. On 08/31/2024, the patient is being seen for a follow-up. Patient remains intubated on mechanical ventilator. This morning, he is on propofol running at 40 mcg/kg/min and is also on fentanyl drip at 0.5 mcg/kg/h. Calm and comfortable and synchronous on mechanical ventilator. He remains on assist- control mode of mechanical ventilation at the rate of 14, tidal volume of 450, FiO2 of 40% with a PEEP of 5. Blood gas showed a pH of 7.42 with a pCO2 of 76 and pO2 68. IV fluids are KVO and the patient is eating vital high-protein at rate of 20 cc an hour. Afebrile. Hemodynamically stable. CAT scan of the chest was completed yesterday and it shows diffuse emphysematous changes bilaterally. No evidence of any fibrosis although there is some interlobular septal thickening with scattered pulmonary nodularity specially along the pleural lining. There is also subcentimeter pulmonary nodules and consolidation in the right lung base with a small right-sided pleural effusion. He is having mild to moderate amount of secretions. Based on that, I performed a bron choscopy on this patient and a total of 20 cc of purulent respiratory secretions were suctioned out and following that the bronchoalveolar lavage of the right lower lobe was done. The white cell count is 14.7 with a hemoglobin 10.6 and a platelet count of 262. Sodium is at 140, potassium is at 3.2, bicarb is at 46 and rest of the electrolytes are essentially within normal limits. The procalcitonin level was at 0.07 the time of admission. On 09/01/2024, the patient is being seen for a follow-up. This morning, the patient is off propofol and the patient is awake and alert and communicating. Following simple commands. He seems to be quite comfortable. He is still on the mechanical ventilator assist-control mode rate of 14, tidal volume of 450, FiO2 50% with a PEEP of 5. Blood gas showed a pH of 7.47 with pCO2 65 and pO2 of 76. Chest x-ray findings are essentially unchanged and the patient has diffuse interstitial changes bilaterally which remains essentially unchanged and there is improved multifocal opacities compared to yesterday's chest x-ray. There is also trace bilateral pleural effusions. The patient is on normal citrate of 75 cc an hour. Fluid balance is positive and over the past 24 hours, the patient has had a positive fluid balance of 1.9 L. He is receiving vital HP at rate of 20 cc an hour. Peak y and static airway pressures are not elevated. The white cell count is at 9 with a heme of 10.7 and a platelet count of 254. Sodium is at 139, BUN 25 with a creatinine of 0.55 and a potassium level is at 3.9. Bronchoscopy endobronchial lavage was done and awaiting final cultures. The sputum sample that was collected at 08/29/2024 showing stenotrophomonas and E. coli and corynebacterium. The bronchial lavage collected on 08/31/2024 showing presumptive staph aureus. The patient remains on IV Rocephin for now. On 09/02/2024, the patient is awake and alert and the patient is currently on 2 L of oxygen by nasal cannula. The patient was extubated on 09/01/2024 without any complications. Noted his sputum analysis showed stenotrophomonas and E. coli and Corynebacterium and the bronchoalveolar lavage showed MRSA. The patient is currently on Bactrim. Vancomycin was also added. Doing well. No specific complaints. No significant respiratory secretions. Remains on bronchodilators. Remains on Lovenox for DVT prophylaxis. Remains on IV Solu-Medrol. Blood work from today shows a white cell count of 9.7, hemoglobin 12 and a platelet count of 269. Sodium is at 138, potassium is at 3.8, bicarb is at 45 with a BUN of 16 and a creatinine of 0.6. Awake and alert and communicating. Tolerating diet. On 09/03/2024, the patient is being seen for a follow-up. The patient is doing well. Calm and comfortable. No respite distress. Transferred out of the intensive care unit yesterday. He has MRSA in his BAL and stenotrophomonas in the sputum and the patient is currently on a combination of Bactrim and vancomycin. Remains on bronchodilators. Remains on steroids. Remains on oxygen and the patient is currently on 2 L nasal cannula with a pulse ox of 95%. Labs from yesterday were noted. No new labs are available from today. No altered mentation. No chest pain. Tolerating diet and hemodynamically stable. On 09/04/2024, the patient is being seen for a follow-up. Doing well. No significant shortness of breath. No significant chest pain. No altered mentation. Afebrile. Remains on vancomycin and Bactrim. Remains on oxygen wit h 2 L cannula positively with a pulse ox of 95%.. Labs from today shows white cell count of 13.7, hemoglobin 13 and a platelet count of 271. Patient also has a sodium level of 136, BUN 17 with a creatinine of 0.5. Serum bicarb is at 38. Vancomycin levels are 15. On 09/05/2024, the patient is stable without any worsening in respiratory status. Remains on 2 L of oxygen by nasal cannula. Remains on a combination of Bactrim and vancomycin. Remains on DuoNeb updrafts 4 times a day and the patient is also on a combination performance of Pulmicort nebulized treatments twice a day. Start on prednisone burst taper and IV Solu-Medrol has been discontinued. Remains on Lovenox for DVT prophylaxis. No new labs from today. No altered mentation. No chest pain. No pleurisy. No hemoptysis. The patient is seen today September 06, 2024 in follow-up on the selective care unit. He is currently sitting up in a chair at the bedside. Awake and alert in no acute distress. Maintaining O2 saturations in the 90s on 3 L/min per nasal cannula. He denies any worsening shortness of breath, cough or congestion. White count 14.0. Hemoglobin 13.6. Platelets 274. Sodium 136. Potassium 4.3. Bicarb 45. BUN 14. Creatinine 0.5. Glucose 114. He remains on DuoNeb inhalations, Pulmicort and performance inhalations, prednisone taper. Lovenox for DVT prophylaxis. Remains on vancomycin and Bactrim. patient was examined today on 09/07/2024, continues to have symptoms of cough and wheezing and congestion. Continues to require oxygen at 3 L/min, continues to have abnormal chest x-ray with bilateral infiltrates. Actually his chest x- ray today clearly showed diffuse patchy infiltrates suggestive of atypical pneumonia or pulmonary edema. Patient continues to have leukocytosis with WBC c ount of 14.0 hemoglobin is 13.6 electrolytes are normal bicarb is elevated at 45. Obviously the patient has chronic hypercapnic respiratory failure with metabolic compensation. Previous cultures on this patient including bronchial washings showed MRSA and Ness and he also had Stenotrophomonas maltophilia as well as E. coli and corynebacterium stratum group. This was all noted in the sputum over the last 10 days. The patient is seen today September 08, 2024 in follow-up on the selective care unit. He is awake and alert in no acute distress. Feeling a bit better today compared to yesterday. He has been slow to progress. He is currently sitting up in a chair. Denies any worsening shortness of breath, cough or congestion. Maintaining O2 saturation in the low 90s on 3 L/min per nasal cannula. He is afebrile. Hemodynamically stable. Glucose 225. He is continued on DuoNeb and elations, Pulmicort and performance and elations, IV Solu-Medrol. Remains on vancomycin and Bactrim per ID service. Lovenox for DVT prophylaxis. Objective - Vital Signs Vital signs: Vital Signs Temp 97.9 F 09/08/24 04:59 Pulse 84 09/08/24 15:55 Resp 16 09/08/24 12:00 BP 108/60 09/08/24 12:00 Pulse Ox 92 L 09/08/24 12:00 FiO2 40 09/01/24 10:20 Intake & Output 09/07/24 09/08/24 09/08/24 18:59 06:59 18:59 Intake Total 480 280 590 Output Total 1250 1200 500 Balance -770 -920 90 Weight 85.4 kg 79.5 kg Intake: IV 30 Invasive Line 6 20 Invasive Line 7 10 Intake, IV Titration 250 Amount Vancomycin 1,250 mg In 250 Sodium Chloride 0.9% 250 ml @ 125 mls/hr IVPB Q8H [facility] Rx#:[id number] Oral 480 590 Output: Urine 1250 1200 500 Other: Voiding Method Toilet Toilet Urinal Urinal # Voids 4 # Bowel Movements 1 ABP, PAP, CO, CI - Last Documented Arterial Blood Pressure 92/74 - Exam GENERAL EXAM: Alert, 54-year-old male patient, up in a chair, on 3 L nasal cannula, comfortable in no apparent distress. HEAD: Normocephalic. EYES: Normal reaction of pupils, equal size. NOSE: Clear with pink turbinates. THROAT: No erythema or exudates. NECK: No masses, no JVD. CHEST: No chest wall deformity. LUNGS: Equal air entry with few scattered rhonchi. CVS: S1 and S2 normal with no audible murmur, regular rhythm. ABDOMEN: No hepatosplenomegaly, normal bowel sounds, no guarding or rigidity. SPINE: No scoliosis or deformity SKIN: No rashes CENTRAL NERVOUS SYSTEM: No focal deficits, tone is normal in all 4 extremities. EXTREMITIES: There is no peripheral edema. No clubbing, no cyanosis. Peripheral pulses are intact. - Labs CBC & Chem 7: 09/06/24 05:57 09/07/24 06:17 Labs: Abnormal Lab Results - Last 24 Hours (Table) 09/07/24 09/07/24 09/08/24 Range/Units 16:48 20:07 11:25 POC Glucose (mg/dL) 139 H 155 H 225 H (70-110) mg/dL Assessment and Plan Assessment: Acute hypoxemic respiratory failure, secondary to COPD exacerbation. Extubated on 09/01/2024. Sputum is positive, polymicrobial growth in the bronchial lavage showing MRSA. The sputum sample also showed stenotrophomonas and the patient is currently on a combination of vancomycin and Bactrim. Patient is currently on 3 L of oxygen by nasal cannula. Right lower lobe consolidation/pneumonia. Procalcitonin level is within normal limits. Respiratory secretions are abundant and the patient underwent a bronchoscopy and therapeutic airway suctioning and a bronchioloalveolar lavage of the right lower lobe. The sputum sample showed stenotrophomonas and E. coli and corynebacterium. The bronchoalveolar lavage collected on 08/31/2024 showing MRSA. Acute on chronic hypoxic/hypercapnic respiratory failure, extubated on 09/01/2024 the patient is acid-base status seems to be compensated at this point in time. Chronic pleural nodularities and thickening in addition to old right-sided rib fractures. Advanced COPD, maintained on Trelegy Ellipta and DuoNeb updrafts on outpatient basis. Baseline pulmonary function test is not known. Hypertension Hyperlipidemia Obstructive sleep apnea Plan: The patient was seen and evaluated Labs and medications reviewed Stable and on 3 L nasal cannula He has been slow to progress Add incentive spirometer Add a flutter valve Transitioned back to IV Solu-Medrol Continue bronchodilators, antibiotics Continues on Lovenox Increase his activity as tolerated We will continue to follow I have personally seen and examined the patient, performed the documentation and the assessment and plan as written. Number of minutes spent on the visit: 10 Dictation was produced using [employer] dictation software. Please excuse any grammatical, word or spelling errors.
[2024-09-08 16:59] LABS: Glucose,Whole Blood 156 mg/dL (70-110)
[2024-09-08] MEDS: methylPREDNISolone SOD SUCCI 125 MG/2 ML VIAL IV SCH (17:04)
--- NOTE | 2024-09-08 19:59 | P.PN ---
Subjective This is a pleasant 53 years old male with past medical history of multiple medical problems as below including COPD He was transferred from outside facility already intubated. He is on mechanical ventilation Patient was transferred from [facility]. He presents there because of respiratory distress for 2 days duration associated with dyspnea. He was hypoxic saturating in 70s on room air. In view of his history of COPD and CT of the chest without contrast showing diffuse bilateral airspace opacities with increased pleural thickening and fluid per report findings are suspicious for multifocal pneumonia. Patient was hypotensive and tachycardic. His ABG prior to transfer showing pH is low 7.18 and CO2 is elevated 136. Currently patient cannot provide information. His vitals look stable and afebrile CBC, LFTs are unremarkable as well as metabolic panel with BMP except for elevated carbon dioxide at 44. Troponin is negative Urine analysis suspicious for infection D-dimer is negative at 0.56 pH here is 7.4 and CO2 is 70. Lactic acid is only 2.2 came down to 1.2. proBNP is 857 Chest x-ray showing persistent multiple airspace opacity with multiple right rib fracture 08/30 Patient still intubated and sedated on mechanical ventilation. FiO2 50% and PEEP of 8, tidal volume 450 mL His vitals looks very stable He was little agitated earlier with coughing and shaking requiring one-time dose of Ativan 08/31 Patient is still intubated requiring mechanical ventilation Patient with no fever and vitals with stable blood pressure and heart rate since admission. WBC went up from 7.8-14.7 while he is on steroids. pH 7.4 and pCO2 is high 76. Sodium 140, potassium 3.2. Creatinine normal. Glucose controlled. Currently kept on IV Solu-Medrol and ceftriaxone and Zithromax Patient had CT of the chest showing no honeycombing but pulmonary edema superimposed on bacterial infection Eliquis pulmonary nodules throughout the lungs bilaterally mainly in the lower lung. 09/06 Resuming the care of the patient today on 09/06 Patient looks tired, still has some tachypnea and shortness of breath He is saturating 90 to 99% on 3 to 4 L via nasal cannula He remains on IV vancomycin and Bactrim for MRSA found in his BAL related to his bilateral pneumonia more on the right side than the left side. Is also has evidence of Ness bacteremia and covered with nystatin. He is currently also on taper prednisone. He is generally weak and he may benefit from home health care upon discharge per PT/OT recommendation 09/07 Patient continued to have some dyspnea and tachypnea. He still requires 3 L of oxygen via nasal cannula Repeat chest x-ray from today showing bilateral infiltrate which is suspicious for fluid versus atypical infection. Per pulmonary team recommendation. Remains on antibiotics with IV vancomycin, oral Bactrim and nystatin Also patient was complaining from mild upper abdominal pain although he tolerat es diet, [place] was given for him with close monitoring. He is also on prednisone 40 mg with mild leukocytosis 09/08 Patient still complaining from some dyspnea although he reports some improvement. He is currently on 3 L oxygen which is similar to his home dose. Also can walk to the restroom with minimal exertional dyspnea but he is generally weak and PT recommended home health care upon discharge Chest x-ray still shows extensive bilateral infiltrates and he is currently covered with IV vancomycin for possible MRSA pneumonia. His prednisone switched to IV Solu-Medrol 60 mg related to his acute COPD exacerbation Objective - Vital Signs Vital signs: Vital Signs Temp 97.9 F 09/08/24 04:59 Pulse 92 09/08/24 16:00 Resp 16 09/08/24 16:00 BP 128/70 09/08/24 16:00 Pulse Ox 93 L 09/08/24 16:00 FiO2 40 09/01/24 10:20 Intake & Output 09/08/24 09/08/24 09/09/24 06:59 18:59 06:59 Intake Total 280 708 Output Total 1200 500 Balance -920 208 Weight 79.5 kg Intake: IV 30 Invasive Line 6 20 Invasive Line 7 10 Intake, IV Titration 250 Amount Vancomycin 1,250 mg In 250 Sodium Chloride 0.9% 250 ml @ 125 mls/hr IVPB Q8H [facility] Rx#:[id number] Oral 708 Output: Urine 1200 500 Other: Voiding Method Toilet Toilet Urinal Urinal # Voids 4 ABP, PAP, CO, CI - Last Documented Arterial Blood Pressure 92/74 - Exam -GENERAL: The patient is intubated and sedated HEENT: Pupils are round and equally reacting to light. EOMI. No scleral icterus. No conjunctival pallor. Normocephalic, atraumatic. No pharyngeal erythema. No thyromegaly. CARDIOVASCULAR: S1 and S2 present. No murmurs, rubs, or gallops. PULMONARY: Chest is clear to auscultation, no wheezing , no crackles. ABDOMEN: Soft, nontender, nondistended, normoactive bowel sounds. No palpable organomegaly. MUSCULOSKELETAL: No joint swelling or deformity. EXTREMITIES: No cyanosis, clubbing, or pedal edema. NEUROLOGICAL: Gross neurological examination did not reveal any focal deficits. SKIN: No rashes. no petechiae. - Labs CBC & Chem 7: 09/06/24 05:57 09/07/24 06:17 Labs: Abnormal Lab Results - Last 24 Hours (Table) 09/07/24 09/08/24 09/08/24 Range/Units 20:07 11:25 16:57 POC Glucose (mg/dL) 155 H 225 H 156 H (70-110) mg/dL Assessment and Plan Assessment: Acute hypoxic hypercapnic respiratory failure s/p intubation and mechanical ventilation Bilateral multifocal pneumonia Acute COPD exacerbation bilateral pulmonary nodules throughout both lungs more on the lower zones Possible acute urinary tract infection Multiple right-sided rib fracture Respiratory acidosis, acute Plan: Continue with IV vancomycin and Bactrim Continue with nystatin Continue with IV Solu-Medrol Pulmonary/team following closely Continue with oxygen therapy Labs and medication were reviewed.. Continue same treatment. Continue with symptomatic treatment. Resume home medication. Monitor labs and vitals. DVT and GI prophylaxis. Further recommendations as per clinical course of the patient DVT prophylaxis: Subcutaneous h Lovenox GI Prophylaxis: Protonix Prognosis is guarded
[2024-09-08 20:16] LABS: Glucose,Whole Blood 188 mg/dL (70-110)
[2024-09-08] MEDS: IPRATROPIUM-ALBUTEROL 3 ML NEB INHALATION PRN (23:39)
[2024-09-09 05:48] LABS: Glucose,Whole Blood 151 mg/dL (70-110)
[2024-09-09 06:24] LABS: Basophils % (A) 0 %; Eosinophils % (A) 0 %; HGB 13.5 gm/dL (13.0-17.5); Hypochromasia Marked; Lymphocytes # (A) 0.7 k/uL (1.0-4.8); Lymphocytes % (A) 5 %; MCH 27.4 pg (25.0-35.0); MCHC 28.8 g/dL (31.0-37.0); MCV 95.2 fL (80.0-100.0); Monocytes # (A) 0.5 k/uL (0-1.0); Monocytes % (A) 4 %; Neutrophils # (A) 11.2 k/uL (1.3-7.7); Neutrophils % (A) 90 %; Platelet Count 382 k/uL (150-450); RBC 4.94 m/uL (4.30-5.90); WBC 12.4 k/uL (3.8-10.6)
[2024-09-09 07:42] LABS: African American GFR (CKD) >90 (>60 ml/min/1.73 sqM); Blood Urea Nitrogen 14 mg/dL (9-20); Chloride 84 mmol/L (98-107); Glucose 125 mg/dL (74-99); Non-African American GFR(CKD) >90 (>60 ml/min/1.73 sqM); Potassium 5.2 mmol/L (3.5-5.1); Sodium 135 mmol/L (137-145)
[2024-09-09 07:48] LABS: Anion Gap 4 mmol/L
[2024-09-09 07:52] LABS: Carbon Dioxide 47 mmol/L (22-30)
[2024-09-09 11:14] LABS: Glucose,Whole Blood 134 mg/dL (70-110)
--- NOTE | 2024-09-09 14:10 | P.PN ---
Subjective Progress Note Date: 09/09/24 Principal diagnosis: Acute hypoxic respiratory failure secondary to acute exacerbation of COPD and acute right lower lobe pneumonia 53-year-old male who was transferred down, by EMS, from an outside hospital, with respiratory failure. The patient apparently has a history of severe COPD, and the patient was intubated, at the outside hospital, after he failed BiPAP. Apparently his PaCO2 on blood gas was 137. The patient is seen today in the emergency department, trauma room 2. His vent settings include volume assist- control, rate 14, tidal volume 450, FiO2 50%, and PEEP of 5. The patient is getting propofol at 25 mcg/kg/min. He apparently has a history of COPD, and sleep apnea, and apparently is noncompliant with medications. No other history is available other than the fact that he has COPD and sleep apnea. Home medications apparently include Trelegy, saline nasal rinse, vitamins, metoprolol, updrafts, with ipratropium bromide and albuterol, Motrin, Flonase nasal spray, Flexeril, Lipitor, aspirin, amlodipine, albuterol inhaler, and Tylenol. Based on these medications it appears in addition to COPD, the patient has a history of gastroesophageal reflux disease, hyperlipidemia, and hypertension. Current laboratory data includes a white count 8.3, hemoglobin 13.2, hematocrit 40.2, and a platelet count 239,000. Blood gases show pO2 of 256, pCO2 of 70, and a pH of 7.44. Bicarbonate concentration on the blood gas was 47, on the electrolyte profile was 44. Sodium 139, potassium 3.9, chloride 87, CO2 44, BUN 19, and creatinine 0.79. Lactic acid was 2.2. Glucose 125. The rest of the CMP looks relatively normal. Viral screen was negative. Chest x-ray shows bilateral airspace opacities, which could be consistent with pneumonia. 08/30/2024, the patient is being seen for a follow-up. The patient has severe COPD and she was intubated in outside hospital after she failed BiPAP and the patient was transferred to us for further care. No further information is available regarding his baseline respiratory status. To my knowledge, the patient has been maintained on Trelegy Ellipta on an outpatient basis in addition to DuoNeb updrafts [id number]. At this point in time, the patient is intubated on the mechanical ventilator and the chest x-ray is showing diffuse bilateral pulmonary infiltrates. This is consistent with multifocal air space disease. Underlying ILD cannot be completely ruled out. This morning, the patient is on propofol running at 50 mcg/kg/min. He is on assist-control mode of mechanical ventilation at rate of 20, tidal volume of 450, FiO2 40% with a PEEP of 5. Blood gas showed pH of 7.42 with a pCO2 of 71 and pO2 of 133. His peak airway pressure is at 31. Limited crackles and wheezing on today's examination. Cardiac rhythm is sinus. Remains on IV Rocephin and Zithromax. White cell count of 7.8 with him of 10.9 and a platelet count of 242. Sodium is at 138, potassium is at 3.3, bicarb is at 44, BUN is 19 with a creatinine of 0.74. The patient has a proBNP level of 857. Procalcitonin level is at 0.07. Lactic acid level is at 1.2. He is well sedated, calm and comfortable, maintained on wound bronchodilators, maintained on Solu-Medrol, maintained on Lovenox for DVT prophylaxis. On 08/31/2024, the patient is being seen for a follow-up. Patient remains intubated on mechanical ventilator. This morning, he is on propofol running at 40 mcg/kg/min and is also on fentanyl drip at 0.5 mcg/kg/h. Calm and comfortable and synchronous on mechanical ventilator. He remains on assist- control mode of mechanical ventilation at the rate of 14, tidal volume of 450, FiO2 of 40% with a PEEP of 5. Blood gas showed a pH of 7.42 with a pCO2 of 76 and pO2 68. IV fluids are KVO and the patient is eating vital high-protein at rate of 20 cc an hour. Afebrile. Hemodynamically stable. CAT scan of the chest was completed yesterday and it shows diffuse emphysematous changes bilaterally. No evidence of any fibrosis although there is some interlobular septal thickening with scattered pulmonary nodularity specially along the pleural lining. There is also subcentimeter pulmonary nodules and consolidation in the right lung base with a small right-sided pleural effusion. He is having mild to moderate amount of secretions. Based on that, I performed a bronchoscopy on this patient and a total of 20 cc of purulent respiratory secretions were suctioned out and following that the bronchoalveolar lavage of the right lower lobe was done. The white cell count is 14.7 with a hemoglobin 10.6 and a platelet count of 262. Sodium is at 140, potassium is at 3.2, bicarb is at 46 and rest of the electrolytes are essentially within normal limits. The procalcitonin level was at 0.07 the time of admission. On 09/01/2024, the patient is being seen for a follow-up. This morning, the patient is off propofol and the patient is awake and alert and communicating. Following simple commands. He seems to be quite comfortable. He is still on the mechanical ventilator assist-control mode rate of 14, tidal volume of 450, FiO2 50% with a PEEP of 5. Blood gas showed a pH of 7.47 with pCO2 65 and pO2 of 76. Chest x-ray findings are essentially unchanged and the patient has diffuse interstitial changes bilaterally which remains essentially unchanged and there is improved multifocal opacities compared to yesterday's chest x-ray. There is also trace bilateral pleural effusions. The patient is on normal citrate of 75 cc an hour. Fluid balance is positive and over the past 24 hours, the patient has had a positive fluid balance of 1.9 L. He is receiving vital HP at rate of 20 cc an hour. Peak y and static airway pressures are not elevated. The white cell count is at 9 with a heme of 10.7 and a platelet count of 254. Sodium is at 139, BUN 25 with a creatinine of 0.55 and a potassium level is at 3.9. Bronchoscopy endobronchial lavage was done and awaiting final cultures. The sputum sample that was collected at 08/29/2024 showing stenotrophomonas and E. coli and corynebacterium. The bronchial lavage collected on 08/31/2024 showing presumptive staph aureus. The patient remains on IV Rocephin for now. On 09/02/2024, the patient is awake and alert and the patient is currently on 2 L of oxygen by nasal cannula. The patient was extubated on 09/01/2024 without any complications. Noted his sputum analysis showed stenotrophomonas and E. coli and Corynebacterium and the bronchoalveolar lavage showed MRSA. The patient is currently on Bactrim. Vancomycin was also added. Doing well. No specific complaints. No significant respiratory secretions. Remains on bronchodilators. Remains on Lovenox for DVT prophylaxis. Remains on IV Solu-Medrol. Blood work from today shows a white cell count of 9.7, hemoglobin 12 and a platelet count of 269. Sodium is at 138, potassium is at 3.8, bicarb is at 45 with a BUN of 16 and a creatinine of 0.6. Awake and alert and communicating. Tolerating diet. On 09/03/2024, the patient is being seen for a follow-up. The patient is doing well. Calm and comfortable. No respite distress. Transferred out of the intensive care unit yesterday. He has MRSA in his BAL and stenotrophomonas in the sputum and the patient is currently on a combination of Bactrim and vancomycin. Remains on bronchodilators. Remains on steroids. Remains on oxyge n and the patient is currently on 2 L nasal cannula with a pulse ox of 95%. Labs from yesterday were noted. No new labs are available from today. No altered mentation. No chest pain. Tolerating diet and hemodynamically stable. On 09/04/2024, the patient is being seen for a follow-up. Doing well. No significant shortness of breath. No significant chest pain. No altered mentation. Afebrile. Remains on vancomycin and Bactrim. Remains on oxygen with 2 L cannula positively with a pulse ox of 95%.. Labs from today shows white cell count of 13.7, hemoglobin 13 and a platelet count of 271. Patient also has a sodium level of 136, BUN 17 with a creatinine of 0.5. Serum bicarb is at 38. Vancomycin levels are 15. On 09/05/2024, the patient is stable without any worsening in respiratory status. Remains on 2 L of oxygen by nasal cannula. Remains on a combination of Bactrim and vancomycin. Remains on DuoNeb updrafts 4 times a day and the patient is also on a combination performance of Pulmicort nebulized treatments twice a day. Start on prednisone burst taper and IV Solu-Medrol has been discontinued. Remains on Lovenox for DVT prophylaxis. No new labs from today. No altered mentation. No chest pain. No pleurisy. No hemoptysis. The patient is seen today September 06, 2024 in follow-up on the selective care unit. He is currently sitting up in a chair at the bedside. Awake and alert in no acute distress. Maintaining O2 saturations in the 90s on 3 L/min per nasal c annula. He denies any worsening shortness of breath, cough or congestion. White count 14.0. Hemoglobin 13.6. Platelets 274. Sodium 136. Potassium 4.3. Bicarb 45. BUN 14. Creatinine 0.5. Glucose 114. He remains on DuoNeb inhalations, Pulmicort and performance inhalations, prednisone taper. Lovenox for DVT prophylaxis. Remains on vancomycin and Bactrim. patient was examined today on 09/07/2024, continues to have symptoms of cough and wheezing and congestion. Continues to require oxygen at 3 L/min, continues to have abnormal chest x-ray with bilateral infiltrates. Actually his chest x- ray today clearly showed diffuse patchy infiltrates suggestive of atypical pneumonia or pulmonary edema. Patient continues to have leukocytosis with WBC count of 14.0 hemoglobin is 13.6 electrolytes are normal bicarb is elevated at 45. Obviously the patient has chronic hypercapnic respiratory failure with metabolic compensation. Previous cultures on this patient including bronchial washings showed MRSA and Enss and he also had Stenotrophomonas maltophilia as well as E. coli and corynebacterium stratum group. This was all noted in the sputum over the last 10 days. Seen today on 09/09/2024, patient is doing better today, breathing easier, less cough less wheezing less shortness of breath. WBC is 12.4 hemoglobin 13.5 electrolytes are normal. Bicarb is 47. Renal profile is normal. Considering the clinical improvement, I will go ahead and clear the patient for discharge if cleared by other consultants. Objective - Vital Signs Vital signs: Vital Signs Temp 98.1 F 09/09/24 08:38 Pulse 79 09/09/24 12:30 Resp 18 09/09/24 11:53 BP 99/56 09/09/24 11:53 Pulse Ox 96 09/09/24 11:53 FiO2 40 09/01/24 10:20 Intake & Output 09/08/24 09/09/24 09/09/24 18:59 06:59 18:59 Intake Total 708 600 160 Output Total 500 650 400 Balance 208 -50 -240 Weight 79.7 kg Intake: IV 10 Invasive Line 7 10 Oral 708 600 150 Output: Urine 500 650 400 Other: Voiding Method Toilet Toilet Toilet Urinal Urinal Urinal ABP, PAP, CO, CI - Last Documented Arterial Blood Pressure 92/74 - Exam GENERAL EXAM: Alert, disheveled 54-year-old male patient on 3 L nasal cannula, O2 saturation 96% HEAD: Normocephalic. EYES: Normal reaction of pupils, equal size. NOSE: Clear with pink turbinates. THROAT: No erythema or exudates. NECK: No masses, no JVD. CHEST: No chest wall deformity. LUNGS: Minimal crackles and rhonchi at the bases more so on forced expiratory maneuver CVS: S1 and S2 normal with no audible murmur, regular rhythm. ABDOMEN: No hepatosplenomegaly, normal bowel sounds, no guarding or rigidity. SKIN: No rashes CENTRAL NERVOUS SYSTEM: Alert and oriented x 3 no focal deficit EXTREMITIES: No clubbing edema or cyanosis - Labs CBC & Chem 7: 09/09/24 06:03 09/09/24 06:03 Labs: Abnormal Lab Results - Last 24 Hours (Table) 09/08/24 09/08/24 09/09/24 Range/Units 16:57 20:15 05:47 WBC (3.8-10.6) k/uL MCHC (31.0-37.0) g/dL Neutrophils # (1.3-7.7) k/uL Lymphocytes # (1.0-4.8) k/uL Sodium (137-145) mmol/L Potassium (3.5-5.1) mmol/L Chloride (98-107) mmol/L Carbon Dioxide (22-30) mmol/L Creatinine (0.66-1.25) mg/dL Glucose (74-99) mg/dL POC Glucose (mg/dL) 156 H 188 H 151 H (70-110) mg/dL 09/09/24 09/09/24 09/09/24 Range/Units 06:03 06:03 11:13 WBC 12.4 H (3.8-10.6) k/uL MCHC 28.8 L (31.0-37.0) g/dL Neutrophils # 11.2 H (1.3-7.7) k/uL Lymphocytes # 0.7 L (1.0-4.8) k/uL Sodium 135 L (137-145) mmol/L Potassium 5.2 H (3.5-5.1) mmol/L Chloride 84 L (98-107) mmol/L Carbon Dioxide 47 H* (22-30) mmol/L Creatinine 0.53 L (0.66-1.25) mg/dL Glucose 125 H (74-99) mg/dL POC Glucose (mg/dL) 134 H (70-110) mg/dL Assessment and Plan Assessment: Impression: Acute hypoxemic respiratory failure, secondary to COPD exacerbation. Extubated on 09/01/2024. Sputum is positive, polymicrobial growth in the bronchial lavage showing MRSA. The sputum sample also showed stenotrophomonas and the patient is currently on a combination of vancomycin and Bactrim. Patient is currently on 2 L of oxygen by nasal cannula. Bilateral pneumonia, chest x-ray continues show bilateral infiltrates/pneumonia Acute on chronic hypoxic/hypercapnic respiratory failure Chronic pleural nodularities and thickening in addition to old right-sided rib fractures. Advanced COPD, maintained on Trelegy Ellipta and DuoNeb updrafts on outpatient basis. Baseline pulmonary function test is not known. Hypertension Hyperlipidemia Obstructive sleep apnea Recommendation: Continue DuoNeb and bronchodilators Continue GI DVT prophylaxis Antibiotics to be addressed as per infectious disease on the case Based on the pulmonary status I will clear the patient for discharge and should have follow-up on outpatient basis. Patient will need home O2. And will need prednisone tapered on outpatient basis as well as DuoNeb and Symbicort Will continue to follow Time with Patient: Less than 30
[2024-09-09 16:52] LABS: Glucose,Whole Blood 132 mg/dL (70-110)
[2024-09-09] MEDS: INSULIN LISPRO (HumaLOG) 100 UNIT/ML 10 mL VL SQ SCH (17:02)
--- NOTE | 2024-09-09 18:50 | P.PN ---
Subjective This is a pleasant 53 years old male with past medical history of multiple medical problems as below including COPD He was transferred from outside facility already intubated. He is on mechanical ventilation Patient was transferred from [facility]. He presents there because of respiratory distress for 2 days duration associated with dyspnea. He was hypoxic saturating in 70s on room air. In view of his history of COPD and CT of the chest without contrast showing diffuse bilateral airspace opacities with increased pleural thickening and fluid per report findings are suspicious for multifocal pneumonia. Patient was hypotensive and tachycardic. His ABG prior to transfer showing pH is low 7.18 and CO2 is elevated 136. Currently patient cannot provide information. His vitals look stable and afebrile CBC, LFTs are unremarkable as well as metabolic panel with BMP except for elevated carbon dioxide at 44. Troponin is negative Urine analysis suspicious for infection D-dimer is negative at 0.56 pH here is 7.4 and CO2 is 70. Lactic acid is only 2.2 came down to 1.2. proBNP is 857 Chest x-ray showing persistent multiple airspace opacity with multiple right rib fracture 08/30 Patient still intubated and sedated on mechanical ventilation. FiO2 50% and PEEP of 8, tidal volume 450 mL His vitals looks very stable He was little agitated earlier with coughing and shaking requiring one-time dose of Ativan 08/31 Patient is still intubated requiring mechanical ventilation Patient with no fever and vitals with stable blood pressure and heart rate since admission. WBC went up from 7.8-14.7 while he is on steroids. pH 7.4 and pCO2 is high 76. Sodium 140, potassium 3.2. Creatinine normal. Glucose controlled. Currently kept on IV Solu-Medrol and ceftriaxone and Zithromax Patient had CT of the chest showing no honeycombing but pulmonary edema superimposed on bacterial infection Eliquis pulmonary nodules throughout the lungs bilaterally mainly in the lower lung. 09/06 Resuming the care of the patient today on 09/06 Patient looks tired, still has some tachypnea and shortness of breath He is saturating 90 to 99% on 3 to 4 L via nasal cannula He remains on IV vancomycin and Bactrim for MRSA found in his BAL related to his bilateral pneumonia more on the right side than the left side. Is also has evidence of Ness bacteremia and covered with nystatin. He is currently also on taper prednisone. He is generally weak and he may benefit from home health care upon discharge per PT/OT recommendation 09/07 Patient continued to have some dyspnea and tachypnea. He still requires 3 L of oxygen via nasal cannula Repeat chest x-ray from today showing bilateral infiltrate which is suspicious for fluid versus atypical infection. Per pulmonary team recommendation. Remains on antibiotics with IV vancomycin, oral Bactrim and nystatin Also patient was complaining from mild upper abdominal pain although he tolerat es diet, [place] was given for him with close monitoring. He is also on prednisone 40 mg with mild leukocytosis 09/08 Patient still complaining from some dyspnea although he reports some improvement. He is currently on 3 L oxygen which is similar to his home dose. Also can walk to the restroom with minimal exertional dyspnea but he is generally weak and PT recommended home health care upon discharge Chest x-ray still shows extensive bilateral infiltrates and he is currently covered with IV vancomycin for possible MRSA pneumonia. His prednisone switched to IV Solu-Medrol 60 mg related to his acute COPD exacerbation 09/09 Patient clinically doing well, his breathing is stable and his ability to get up and move by himself is also stable. Can walk freely to the restroom. Patient remains on 3 L oxygen via nasal cannula. Patient is hemodynamically stable Patient was cleared for discharge by pulmonary service and infectious disease service. Patient will need 7 days of Bactrim upon discharge. However patient potassium was on the high side 5.2 today and repeat 1 was 5.0. Will give one-time dose of Lokelma 10 mg and 2 separate doses. Recheck potassium in the morning Patient also has right is followed by by 2 hours and he prefers to wait to the morning. Possible discharge 24 hours Objective - Vital Signs Vital signs: Vital Signs Temp 98.8 F 09/09/24 15: Pulse 79 09/09/24 16:34 Resp 18 09/09/24 15: BP 127/61 09/09/24 15: Pulse Ox 96 09/09/24 15: FiO2 40 09/01/24 10:20 Intake & Output 09/08/24 09/09/24 09/09/24 18:59 06:59 18:59 Intake Total 708 600 530 Output Total 500 650 600 Balance 208 -50 -70 Weight 79.7 kg Intake: IV 20 Invasive Line 7 20 Oral 708 600 510 Output: Urine 500 650 600 Other: Voiding Method Toilet Toilet Toilet Urinal Urinal Urinal ABP, PAP, CO, CI - Last Documented Arterial Blood Pressure 92/74 - Exam -GENERAL: The patient is intubated and sedated HEENT: Pupils are round and equally reacting to light. EOMI. No scleral icterus. No conjunctival pallor. Normocephalic, atraumatic. No pharyngeal erythema. No thyromegaly. CARDIOVASCULAR: S1 and S2 present. No murmurs, rubs, or gallops. PULMONARY: Chest is clear to auscultation, no wheezing , no crackles. ABDOMEN: Soft, nontender, nondistended, normoactive bowel sounds. No palpable organomegaly. MUSCULOSKELETAL: No joint swelling or deformity. EXTREMITIES: No cyanosis, clubbing, or pedal edema. NEUROLOGICAL: Gross neurological examination did not reveal any focal deficits. SKIN: No rashes. no petechiae. - Labs CBC & Chem 7: 09/09/24 06:03 09/09/24 15:52 Labs: Abnormal Lab Results - Last 24 Hours (Table) 09/08/24 09/09/24 09/09/24 Range/Units 20:15 05:47 06:03 WBC (3.8-10.6) k/uL MCHC (31.0-37.0) g/dL Neutrophils # (1.3-7.7) k/uL Lymphocytes # (1.0-4.8) k/uL Sodium 135 L (137-145) mmol/L Potassium 5.2 H (3.5-5.1) mmol/L Chloride 84 L (98-107) mmol/L Carbon Dioxide 47 H* (22-30) mmol/L Creatinine 0.53 L (0.66-1.25) mg/dL Glucose 125 H (74-99) mg/dL POC Glucose (mg/dL) 188 H 151 H (70-110) mg/dL 09/09/24 09/09/24 09/09/24 Range/Units 06:03 11:13 15:52 WBC 12.4 H (3.8-10.6) k/uL MCHC 28.8 L (31.0-37.0) g/dL Neutrophils # 11.2 H (1.3-7.7) k/uL Lymphocytes # 0.7 L (1.0-4.8) k/uL Sodium 135 L (137-145) mmol/L Potassium (3.5-5.1) mmol/L Chloride 87 L (98-107) mmol/L Carbon Dioxide 45 H* (22-30) mmol/L Creatinine (0.66-1.25) mg/dL Glucose (74-99) mg/dL POC Glucose (mg/dL) 134 H (70-110) mg/dL 09/09/24 Range/Units 16:50 WBC (3.8-10.6) k/uL MCHC (31.0-37.0) g/dL Neutrophils # (1.3-7.7) k/uL Lymphocytes # (1.0-4.8) k/uL Sodium (137-145) mmol/L Potassium (3.5-5.1) mmol/L Chloride (98-107) mmol/L Carbon Dioxide (22-30) mmol/L Creatinine (0.66-1.25) mg/dL Glucose (74-99) mg/dL POC Glucose (mg/dL) 132 H (70-110) mg/dL Microbiology - Last 24 Hours (Table) 08/31/24 11:00 Acid Fast Bacilli Smear - Preliminary Bronchial Washings - Right Acid Fast Bacilli Culture - Preliminary Assessment and Plan Assessment: Acute hypoxic hypercapnic respiratory failure s/p intubation and mechanical ventilation Bilateral multifocal pneumonia Acute COPD exacerbation bilateral pulmonary nodules throughout both lungs more on the lower zones Possible acute urinary tract infection Multiple right-sided rib fracture Respiratory acidosis, acute Plan: Continue with IV vancomycin. Bactrim discontinued Continue with nystatin Continue with IV Solu-Medrol Pulmonary/team following closely Continue with oxygen therapy Patient will be discharged on 7 days of Bactrim Labs and medication were reviewed.. Continue same treatment. Continue with symptomatic treatment. Resume home medication. Monitor labs and vitals. DVT and GI prophylaxis. Further recommendations as per clinical course of the patient DVT prophylaxis: Subcutaneous h Lovenox GI Prophylaxis: Protonix Prognosis is guarded
[2024-09-09 20:28] LABS: Glucose,Whole Blood 150 mg/dL (70-110)
[2024-09-09] MEDS: SODIUM ZIRCONIUM CYCLOSILICATE 10 GM PACKET PO ONE ×2 (20:32→21:07)
[2024-09-10 06:02] LABS: Glucose,Whole Blood 103 mg/dL (70-110)
[2024-09-10] MEDS: VANCOMYCIN TROUGH DUE 1 EACH MISC MISCELLANE ONE (06:12)
[2024-09-10 07:35] LABS: African American GFR (CKD) >90 (>60 ml/min/1.73 sqM); Blood Urea Nitrogen 16 mg/dL (9-20); Calcium 8.9 mg/dL (8.4-10.2); Chloride 86 mmol/L (98-107); Glucose 97 mg/dL (74-99); Non-African American GFR(CKD) >90 (>60 ml/min/1.73 sqM); Potassium 4.2 mmol/L (3.5-5.1); Sodium 137 mmol/L (137-145)
[2024-09-10 07:42] LABS: Anion Gap 1 mmol/L
[2024-09-10 07:47] LABS: Carbon Dioxide 50 mmol/L (22-30)
[2024-09-10 07:55] VITALS: TEMP 98.6
--- NOTE | 2024-09-10 08:14 | P.PN ---
Subjective Progress Note Date: 09/09/24 Principal diagnosis: Reason for follow-up is pneumonia MRSA Patient is a 54-year-old male with a past medical history significant for COPD sleep apnea initially presented to the outside facility with acute respiratory failure, patient did require intubation did have evidence of multifocal pneumonia sputum culture positive for stenotrophomonas bronchial wash positive for MRSA and corynebacterium prompting this consultation. On today's evaluation that is 09/09/2024,the patient remains to be afebrile, patient is on 3 L nasal cannula supplemental oxygen and denies any shortness of breath no chest pain and cough is decreased in intensity.Patient denies having any nausea or vomiting, no abdominal pain and no diarrhea has been reported. Patient did have white count of 12.4 creatinine 0.53 Objective - Vital Signs Vital signs: Vital Signs Temp 98.1 F 09/09/24 08:38 Pulse 79 09/09/24 12:30 Resp 18 09/09/24 11:53 BP 99/56 09/09/24 11:53 Pulse Ox 96 09/09/24 11:53 FiO2 40 09/01/24 10:20 Intake & Output 09/08/24 09/09/24 09/09/24 18:59 06:59 18:59 Intake Total 708 600 160 Output Total 500 650 400 Balance 208 -50 -240 Weight 79.7 kg Intake: IV 10 Invasive Line 7 10 Oral 708 600 150 Output: Urine 500 650 400 Other: Voiding Method Toilet Toilet Toilet Urinal Urinal Urinal ABP, PAP, CO, CI - Last Documented Arterial Blood Pressure 92/74 - Exam GENERAL DESCRIPTION: Middle-age male lying in bed in no distress RESPIRATORY SYSTEM: Unlabored breathing , decreased breath sounds at bases HEART: S1 S2 regular rate and rhythm , ABDOMEN: Soft , no tenderness EXTREMITIES: Left upper extremity with the wound but no cellulitis - Labs CBC & Chem 7: 09/09/24 06:03 09/10/24 06:06 Labs: Abnormal Lab Results - Last 24 Hours (Table) 09/08/24 09/08/24 09/09/24 Range/Units 16:57 20:15 05:47 WBC (3.8-10.6) k/uL MCHC (31.0-37.0) g/dL Neutrophils # (1.3-7.7) k/uL Lymphocytes # (1.0-4.8) k/uL Sodium (137-145) mmol/L Potassium (3.5-5.1) mmol/L Chloride (98-107) mmol/L Carbon Dioxide (22-30) mmol/L Creatinine (0.66-1.25) mg/dL Glucose (74-99) mg/dL POC Glucose (mg/dL) 156 H 188 H 151 H (70-110) mg/dL 09/09/24 09/09/24 09/09/24 Range/Units 06:03 06:03 11:13 WBC 12.4 H (3.8-10.6) k/uL MCHC 28.8 L (31.0-37.0) g/dL Neutrophils # 11.2 H (1.3-7.7) k/uL Lymphocytes # 0.7 L (1.0-4.8) k/uL Sodium 135 L (137-145) mmol/L Potassium 5.2 H (3.5-5.1) mmol/L Chloride 84 L (98-107) mmol/L Carbon Dioxide 47 H* (22-30) mmol/L Creatinine 0.53 L (0.66-1.25) mg/dL Glucose 125 H (74-99) mg/dL POC Glucose (mg/dL) 134 H (70-110) mg/dL Assessment and Plan (1) MRSA (methicillin resistant staph aureus) culture positive Current Visit: Yes Status: Acute Code(s): Z22.322 - CARRIER OR SUSPECTED CARRIER OF METHICILLIN RESIS STAPH SNOMED Code(s): 545032551 (2) Penicillin allergy Current Visit: Yes Status: Acute Code(s): Z88.0 - ALLERGY STATUS TO PENICILLIN SNOMED Code(s): 73696138 (3) Pneumonia Current Visit: Yes Status: Acute Code(s): J18.9 - PNEUMONIA, UNSPECIFIED ORGANISM SNOMED Code(s): 631721741 (4) Wound of left upper extremity Current Visit: Yes Status: Acute Code(s): S41.102A - UNSPECIFIED OPEN WOUND OF LEFT UPPER ARM, INITIAL ENCOUNTER SNOMED Code(s): 399188618 (5) Thrush Current Visit: Yes Status: Acute Code(s): B37.0 - CANDIDAL STOMATITIS SNOMED Code(s): 46585784 Plan: 1patient presented to hospital with acute respiratory failure requiring intubation and subsequently has been extubated, etiology is multifactorial likely with a component of pneumonia, on 09/01/2024 patient sputum culture positive for stenotrophomonas E. coli with a BAL culture now showing MRSA and corynebacterium 2-penicillin allergy that will limit the number of antibiotics safe to use 3-patient slowly clinical improvement, to continue with vancomycin pharmacy to dose creatinine and Bactrim DS 1 inpatient however patient will be able to finish therapy with Bactrim DS 1 twice daily for 7 days on discharge this were discussed with the admitting physician also advised to check a BMP while on Bactrim DS in the outpatient setting Dictation was produced using [employer] dictation software. please excuse any grammatical, word or spelling errors. Time with Patient: Less than 30
[2024-09-10] MEDS: IPRATROPIUM-ALBUTEROL 3 ML NEB INHALATION STA (09:25)
[2024-09-10 11:17] LABS: Glucose,Whole Blood 93 mg/dL (70-110)
[2024-09-10 11:37] VITALS: BP 121/70; RESP 18
[2024-09-10 12:09] VITALS: BMI 26.6
[2024-09-10 13:01] VITALS: PULSE 85
[2024-09-10] MEDS ORDERED: VANCOMYCIN 1,500 MG in SODIUM CHLORIDE 0.9% 500 ML 500 ML IVPB SCH (14:00)
--- NOTE | 2024-09-10 16:14 | P.PN ---
Subjective Progress Note Date: 09/10/24 Principal diagnosis: Acute hypoxic respiratory failure secondary to acute exacerbation of COPD and acute right lower lobe pneumonia 53-year-old male who was transferred down, by EMS, from an outside hospital, with respiratory failure. The patient apparently has a history of severe COPD, and the patient was intubated, at the outside hospital, after he failed BiPAP. Apparently his PaCO2 on blood gas was 137. The patient is seen today in the emergency department, trauma room 2. His vent settings include volume assist- control, rate 14, tidal volume 450, FiO2 50%, and PEEP of 5. The patient is getting propofol at 25 mcg/kg/min. He apparently has a history of COPD, and sleep apnea, and apparently is noncompliant with medications. No other history is available other than the fact that he has COPD and sleep apnea. Home medications apparently include Trelegy, saline nasal rinse, vitamins, metoprolol, updrafts, with ipratropium bromide and albuterol, Motrin, Flonase nasal spray, Flexeril, Lipitor, aspirin, amlodipine, albuterol inhaler, and Tylenol. Based on these medications it appears in addition to COPD, the patient has a history of gastroesophageal reflux disease, hyperlipidemia, and hypertension. Current laboratory data includes a white count 8.3, hemoglobin 13.2, hematocrit 40.2, and a platelet count 239,000. Blood gases show pO2 of 256, pCO2 of 70, and a pH of 7.44. Bicarbonate concentration on the blood gas was 47, on the electrolyte profile was 44. Sodium 139, potassium 3.9, chloride 87, CO2 44, BUN 19, and creatinine 0.79. Lactic acid was 2.2. Glucose 125. The rest of the CMP looks relatively normal. Viral screen was negative. Chest x-ray shows bilateral airspace opacities, which could be consistent with pneumonia. 08/30/2024, the patient is being seen for a follow-up. The patient has severe COPD and she was intubated in outside hospital after she failed BiPAP and the patient was transferred to us for further care. No further information is available regarding his baseline respiratory status. To my knowledge, the patient has been maintained on Trelegy Ellipta on an outpatient basis in addition to DuoNeb updrafts [id number]. At this point in time, the patient is intubated on the mechanical ventilator and the chest x-ray is showing diffuse bilateral pulmonary infiltrates. This is consistent with multifocal air space disease. Underlying ILD cannot be completely ruled out. This morning, the patient is on propofol running at 50 mcg/kg/min. He is on assist-control mode of mechanical ventilation at rate of 20, tidal volume of 450, FiO2 40% with a PEEP of 5. Blood gas showed pH of 7.42 with a pCO2 of 71 and pO2 of 133. His peak airway pressure is at 31. Limited crackles and wheezing on today's examination. Cardiac rhythm is sinus. Remains on IV Rocephin and Zithromax. White cell count of 7.8 with him of 10.9 and a platelet count of 242. Sodium is at 138, potassium is at 3.3, bicarb is at 44, BUN is 19 with a creatinine of 0.74. The patient has a proBNP level of 857. Procalcitonin level is at 0.07. Lactic acid level is at 1.2. He is well sedated, calm and comfortable, maintained on wound bronchodilators, maintained on Solu-Medrol, maintained on Lovenox for DVT prophylaxis. On 08/31/2024, the patient is being seen for a follow-up. Patient remains intubated on mechanical ventilator. This morning, he is on propofol running at 40 mcg/kg/min and is also on fentanyl drip at 0.5 mcg/kg/h. Calm and comfortable and synchronous on mechanical ventilator. He remains on assist- control mode of mechanical ventilation at the rate of 14, tidal volume of 450, FiO2 of 40% with a PEEP of 5. Blood gas showed a pH of 7.42 with a pCO2 of 76 and pO2 68. IV fluids are KVO and the patient is eating vital high-protein at rate of 20 cc an hour. Afebrile. Hemodynamically stable. CAT scan of the chest was completed yesterday and it shows diffuse emphysematous changes bilaterally. No evidence of any fibrosis although there is some interlobular septal thickening with scattered pulmonary nodularity specially along the pleural lining. There is also subcentimeter pulmonary nodules and consolidation in the right lung base with a small right-sided pleural effusion. He is having mild to moderate amount of secretions. Based on that, I performed a bronchoscopy on this patient and a total of 20 cc of purulent respiratory secretions were suctioned out and following that the bronchoalveolar lavage of the right lower lobe was done. The white cell count is 14.7 with a hemoglobin 10.6 and a platelet count of 262. Sodium is at 140, potassium is at 3.2, bicarb is at 46 and rest of the electrolytes are essentially within normal limits. The procalcitonin level was at 0.07 the time of admission. On 09/01/2024, the patient is being seen for a follow-up. This morning, the patient is off propofol and the patient is awake and alert and communicating. Following simple commands. He seems to be quite comfortable. He is still on the mechanical ventilator assist-control mode rate of 14, tidal volume of 450, FiO2 50% with a PEEP of 5. Blood gas showed a pH of 7.47 with pCO2 65 and pO2 of 76. Chest x-ray findings are essentially unchanged and the patient has diffuse interstitial changes bilaterally which remains essentially unchanged and there is improved multifocal opacities compared to yesterday's chest x-ray. There is also trace bilateral pleural effusions. The patient is on normal citrate of 75 cc an hour. Fluid balance is positive and over the past 24 hours, the patient has had a positive fluid balance of 1.9 L. He is receiving vital HP at rate of 20 cc an hour. Peak y and static airway pressures are not elevated. The white cell count is at 9 with a heme of 10.7 and a platelet count of 254. Sodium is at 139, BUN 25 with a creatinine of 0.55 and a potassium level is at 3.9. Bronchoscopy endobronchial lavage was done and awaiting final cultures. The sputum sample that was collected at 08/29/2024 showing stenotrophomonas and E. coli and corynebacterium. The bronchial lavage collected on 08/31/2024 showing presumptive staph aureus. The patient remains on IV Rocephin for now. On 09/02/2024, the patient is awake and alert and the patient is currently on 2 L of oxygen by nasal cannula. The patient was extubated on 09/01/2024 without any complications. Noted his sputum analysis showed stenotrophomonas and E. coli and Corynebacterium and the bronchoalveolar lavage showed MRSA. The patient is currently on Bactrim. Vancomycin was also added. Doing well. No specific complaints. No significant respiratory secretions. Remains on bronchodilators. Remains on Lovenox for DVT prophylaxis. Remains on IV Solu-Medrol. Blood work from today shows a white cell count of 9.7, hemoglobin 12 and a platelet count of 269. Sodium is at 138, potassium is at 3.8, bicarb is at 45 with a BUN of 16 and a creatinine of 0.6. Awake and alert and communicating. Tolerating diet. On 09/03/2024, the patient is being seen for a follow-up. The patient is doing well. Calm and comfortable. No respite distress. Transferred out of the intensive care unit yesterday. He has MRSA in his BAL and stenotrophomonas in the sputum and the patient is currently on a combination of Bactrim and vancomycin. Remains on bronchodilators. Remains on steroids. Remains on oxyge n and the patient is currently on 2 L nasal cannula with a pulse ox of 95%. Labs from yesterday were noted. No new labs are available from today. No altered mentation. No chest pain. Tolerating diet and hemodynamically stable. On 09/04/2024, the patient is being seen for a follow-up. Doing well. No significant shortness of breath. No significant chest pain. No altered mentation. Afebrile. Remains on vancomycin and Bactrim. Remains on oxygen with 2 L cannula positively with a pulse ox of 95%.. Labs from today shows white cell count of 13.7, hemoglobin 13 and a platelet count of 271. Patient also has a sodium level of 136, BUN 17 with a creatinine of 0.5. Serum bicarb is at 38. Vancomycin levels are 15. On 09/05/2024, the patient is stable without any worsening in respiratory status. Remains on 2 L of oxygen by nasal cannula. Remains on a combination of Bactrim and vancomycin. Remains on DuoNeb updrafts 4 times a day and the patient is also on a combination performance of Pulmicort nebulized treatments twice a day. Start on prednisone burst taper and IV Solu-Medrol has been discontinued. Remains on Lovenox for DVT prophylaxis. No new labs from today. No altered mentation. No chest pain. No pleurisy. No hemoptysis. The patient is seen today September 06, 2024 in follow-up on the selective care unit. He is currently sitting up in a chair at the bedside. Awake and alert in no acute distress. Maintaining O2 saturations in the 90s on 3 L/min per nasal c annula. He denies any worsening shortness of breath, cough or congestion. White count 14.0. Hemoglobin 13.6. Platelets 274. Sodium 136. Potassium 4.3. Bicarb 45. BUN 14. Creatinine 0.5. Glucose 114. He remains on DuoNeb inhalations, Pulmicort and performance inhalations, prednisone taper. Lovenox for DVT prophylaxis. Remains on vancomycin and Bactrim. patient was examined today on 09/07/2024, continues to have symptoms of cough and wheezing and congestion. Continues to require oxygen at 3 L/min, continues to have abnormal chest x-ray with bilateral infiltrates. Actually his chest x- ray today clearly showed diffuse patchy infiltrates suggestive of atypical pneumonia or pulmonary edema. Patient continues to have leukocytosis with WBC count of 14.0 hemoglobin is 13.6 electrolytes are normal bicarb is elevated at 45. Obviously the patient has chronic hypercapnic respiratory failure with metabolic compensation. Previous cultures on this patient including bronchial washings showed MRSA and Ness and he also had Stenotrophomonas maltophilia as well as E. coli and corynebacterium stratum group. This was all noted in the sputum over the last 10 days. Seen today on 09/09/2024, patient is doing better today, breathing easier, less cough less wheezing less shortness of breath. WBC is 12.4 hemoglobin 13.5 electrolytes are normal. Bicarb is 47. Renal profile is normal. Considering the clinical improvement, I will go ahead and clear the patient for discharge if cleared by other consultants. Patient was seen today on 09/10/2024, patient is feeling better, breathing easier, on 2 L nasal cannula, not in distress, I will clear the patient for discharge today. Objective - Vital Signs Vital signs: Vital Signs Temp 98.6 F 09/10/24 07:54 Pulse 85 09/10/24 13:59 Resp 18 09/10/24 13:59 BP 121/70 09/10/24 11:36 Pulse Ox 96 09/10/24 11:36 FiO2 40 09/01/24 10:20 Intake & Output 09/09/24 09/10/24 09/10/24 18:59 06:59 18:59 Intake Total 530 260 138 Output Total 600 1000 Balance -70 -740 138 Weight 79.6 kg 79.6 kg Intake: IV 20 20 20 Invasive Line 7 20 20 20 Oral 510 240 118 Output: Urine 600 1000 Other: Voiding Method Toilet Toilet Toilet Urinal Urinal Urinal # Voids 1 1 # Bowel Movements 1 ABP, PAP, CO, CI - Last Documented Arterial Blood Pressure 92/74 - Exam GENERAL EXAM: Alert, disheveled 54-year-old male patient on 2 show for weight weight overhead behind the repair L nasal cannula, O2 saturation 96% HEAD: Normocephalic. EYES: Normal reaction of pupils, equal size. NOSE: Clear with pink turbinates. THROAT: No erythema or exudates. NECK: No masses, no JVD. CHEST: No chest wall deformity. LUNGS: Minimal crackles (no rhonchi no wheezes CVS: S1 and S2 normal with no audible murmur, regular rhythm. ABDOMEN: No hepatosplenomegaly, normal bowel sounds, no guarding or rigidity. SKIN: No rashes CENTRAL NERVOUS SYSTEM: Alert and oriented x 3 no focal deficit EXTREMITIES: No clubbing edema or cyanosis. - Labs CBC & Chem 7: 09/09/24 06:03 09/10/24 06:06 Labs: Abnormal Lab Results - Last 24 Hours (Table) 09/09/24 09/09/24 09/09/24 Range/Units 15:52 16:50 20:26 Sodium 135 L (137-145) mmol/L Chloride 87 L (98-107) mmol/L Carbon Dioxide 45 H* (22-30) mmol/L Creatinine (0.66-1.25) mg/dL POC Glucose (mg/dL) 132 H 150 H (70-110) mg/dL 09/10/24 Range/Units 06:06 Sodium (137-145) mmol/L Chloride 86 L (98-107) mmol/L Carbon Dioxide 50 H* (22-30) mmol/L Creatinine 0.53 L (0.66-1.25) mg/dL POC Glucose (mg/dL) (70-110) mg/dL Microbiology - Last 24 Hours (Table) 08/31/24 11:00 Acid Fast Bacilli Smear - Preliminary Bronchial Washings - Right Acid Fast Bacilli Culture - Preliminary Assessment and Plan Assessment: Impression: Acute hypoxemic respiratory failure, secondary to COPD exacerbation. Extubated on 09/01/2024. Sputum is positive, polymicrobial growth in the bronchial lavage showing MRSA. The sputum sample also showed stenotrophomonas and the patient is currently on a combination of vancomycin and Bactrim. Patient is currently on 2 L of oxygen by nasal cannula. Bilateral pneumonia, chest x-ray continues show bilateral infiltrates/pneumonia Acute on chronic hypoxic/hypercapnic respiratory failure Chronic pleural nodularities and thickening in addition to old right-sided rib fractures. Advanced COPD, maintained on Trelegy Ellipta and DuoNeb updrafts on outpatient basis. Baseline pulmonary function test is not known. Hypertension Hyperlipidemia Obstructive sleep apnea Recommendation: Continue DuoNeb and bronchodilators Continue GI DVT prophylaxis Will clear the patient for discharge if cleared by other consultants Patient will need home O2. And will need prednisone tapered on outpatient basis as well as DuoNeb and Symbicort Time with Patient: Less than 30
[2024-09-11] MEDS ORDERED: VANCOMYCIN TROUGH DUE 1 EACH MISC MISCELLANE ONE (13:00)
--- NOTE | 2024-09-11 14:49 | P.PN ---
Subjective Progress Note Date: 09/10/24 Principal diagnosis: Reason for follow-up is pneumonia MRSA Patient is a 54-year-old male with a past medical history significant for COPD sleep apnea initially presented to the outside facility with acute respiratory failure, patient did require intubation did have evidence of multifocal pneumonia sputum culture positive for stenotrophomonas bronchial wash positive for MRSA and corynebacterium prompting this consultation. On today's evaluation that is 09/10/2024, the patient continues to be afebrile, the patient is on 3 L of oxygen and breathing comfortably, the Pt denies having any chest pain and cough is decreased in intensity, the patient denies having any abdominal pain no vomiting or any diarrhea. Patient did have a creatinine 0.53 potassium is 4.2 Vanco trough is 12.4 Objective - Vital Signs Vital signs: Vital Signs Temp 98.6 F 09/10/24 07:54 Pulse 85 09/10/24 13:59 Resp 18 09/10/24 13:59 BP 121/70 09/10/24 11:36 Pulse Ox 96 09/10/24 11:36 FiO2 40 09/01/24 10:20 Intake & Output 09/10/24 09/11/24 09/11/24 18:59 06:59 18:59 Intake Total 138 Balance 138 Weight 79.6 kg Intake: IV 20 Invasive Line 7 20 Oral 118 Other: Voiding Method Toilet Urinal # Voids 1 # Bowel Movements 1 ABP, PAP, CO, CI - Last Documented Arterial Blood Pressure 92/74 - Exam GENERAL DESCRIPTION: Middle-age male lying in bed in no distress RESPIRATORY SYSTEM: Unlabored breathing , decreased breath sounds at bases HEART: S1 S2 regular rate and rhythm , ABDOMEN: Soft , no tenderness EXTREMITIES: Left upper extremity with the wound but no cellulitis - Labs CBC & Chem 7: 09/09/24 06:03 09/10/24 06:06 Assessment and Plan (1) MRSA (methicillin resistant staph aureus) culture positive Status: Acute Code(s): Z22.322 - CARRIER OR SUSPECTED CARRIER OF METHICILLIN RESIS STAPH SNOMED Code(s): 859720200 (2) Penicillin allergy Status: Acute Code(s): Z88.0 - ALLERGY STATUS TO PENICILLIN SNOMED Code(s): 38598831 (3) Pneumonia Status: Acute Code(s): J18.9 - PNEUMONIA, UNSPECIFIED ORGANISM SNOMED Code(s): 541289614 (4) Wound of left upper extremity Status: Acute Code(s): S41.102A - UNSPECIFIED OPEN WOUND OF LEFT UPPER ARM, INITIAL ENCOUNTER SNOMED Code(s): 537207749 (5) Thrush Status: Acute Code(s): B37.0 - CANDIDAL STOMATITIS SNOMED Code(s): 59316980 Plan: 1patient presented to hospital with acute respiratory failure requiring intubation and subsequently has been extubated, etiology is multifactorial likely with a component of pneumonia, on 09/01/2024 patient sputum culture positive for stenotrophomonas E. coli with a BAL culture now showing MRSA and corynebacterium 2-penicillin allergy that will limit the number of antibiotics safe to use 3-patient has shown clinical improvement he will finish therapy with the Bactrim DS 1 twice daily for 7 days this were discussed with admitting physician yesterday and a close outpatient follow-up Dictation was produced using [employer] dictation software. please excuse any grammatical, word or spelling errors. Time with Patient: Less than 30
== END 2024-09-10 15:32 | disposition home health service (06) | DRG 137 ==
LOC: EC 11:42 → 2SICU 13:48 → 3SCARD 09-02 17:26
PROVIDERS: ADMIT Internal Medicine; ATTEND Internal Medicine
PROC: 5A1945Z Respiratory Ventilation, 24-96 Consecutive Hours (ICD-10-PCS; principal; 2024-08-29)
PROC: 0BH17EZ Insertion of Endotracheal Airway into Trachea, Via Natural or Artificial Opening (ICD-10-PCS; principal; 2024-08-29)
PROC: 5A09357 Assistance with Respiratory Ventilation, Less than 24 Consecutive Hours, Continuous Positive Airway Pressure (ICD-10-PCS; 2024-08-29)
PROC: 3E0G76Z Introduction of Nutritional Substance into Upper GI, Via Natural or Artificial Opening (ICD-10-PCS; 2024-08-29)
PROC: 0DH67UZ Insertion of Feeding Device into Stomach, Via Natural or Artificial Opening (ICD-10-PCS; 2024-08-29)
PROC: 4A133J1 Monitoring of Arterial Pulse, Peripheral, Percutaneous Approach (ICD-10-PCS; 2024-08-30)
PROC: 03HY32Z Insertion of Monitoring Device into Upper Artery, Percutaneous Approach (ICD-10-PCS; 2024-08-30)
PROC: 4A133B1 Monitoring of Arterial Pressure, Peripheral, Percutaneous Approach (ICD-10-PCS; 2024-08-30)
PROC: 02HV33Z Insertion of Infusion Device into Superior Vena Cava, Percutaneous Approach (ICD-10-PCS; 2024-08-30)
PROC: 3E043XZ Introduction of Vasopressor into Central Vein, Percutaneous Approach (ICD-10-PCS; 2024-08-30)
PROC: 0B9F8ZX Drainage of Right Lower Lung Lobe, Via Natural or Artificial Opening Endoscopic, Diagnostic (ICD-10-PCS; 2024-08-31)
PROC: 05HD33Z Insertion of Infusion Device into Right Cephalic Vein, Percutaneous Approach (ICD-10-PCS; 2024-09-07)
DX: J15.212 Pneumonia due to Methicillin resistant Staphylococcus aureus (principal); J90 Pleural effusion, not elsewhere classified; S22.41XA Multiple fractures of ribs, right side, initial encounter for closed fracture; J96.22 Acute and chronic respiratory failure with hypercapnia; J81.1 Chronic pulmonary edema; J96.21 Acute and chronic respiratory failure with hypoxia; I69.311 Memory deficit following cerebral infarction; I10 Essential (primary) hypertension; E87.29 Other acidosis; J44.0 Chronic obstructive pulmonary disease with (acute) lower respiratory infection; I95.9 Hypotension, unspecified; J44.1 Chronic obstructive pulmonary disease with (acute) exacerbation; Z99.81 Dependence on supplemental oxygen; E78.5 Hyperlipidemia, unspecified; G47.33 Obstructive sleep apnea (adult) (pediatric); R00.0 Tachycardia, unspecified; R91.8 Other nonspecific abnormal finding of lung field; K21.9 Gastro-esophageal reflux disease without esophagitis; Z87.891 Personal history of nicotine dependence; Z91.148 Patient's other noncompliance with medication regimen for other reason; Z87.01 Personal history of pneumonia (recurrent); Z79.899 Other long term (current) drug therapy; Z88.0 Allergy status to penicillin; Z79.82 Long term (current) use of aspirin; Z71.3 Dietary counseling and surveillance
CPT/HCPCS: 36410; 36415; 36600; 70460; 71045; 71260; 76937; 80048; 80051; 80053; 80202; 81001; 82565; 82805; 83036; 83605; 83735; 83880; 84132; 84145; 84484; 85025; 85379; 85610; 85730; 87040; 87070; 87077; 87102; 87116; 87186; 87205; 87206; 87385; 87449; 87496; 87498; 87502; 87529; 87634; 87635; 87636; 87798; 93005; 93306; 94002; 94003; 94640; 94667; 94668; 94760; 96365; 96366; 96375; 99291